=== PATIENT | female | born 1995 | race African-American/Black ===

== ENCOUNTER 2018-08-30 21:00 | Emergency (ER) | payer OTHER ==
[2018-08-30 21:05] VITALS: BP 125/77; PULSE 95; TEMP 99; BMI 44.3
--- NOTE | 2018-08-30 21:27 | PDOC ---
History of Present Illness - General Chief Complaint: Abscess Boil Stated Complaint: ABPSES Time Seen by Provider: 08/30/18 21:17 - History of Present Illness Initial Comments: 08/30/18 21:25 23-year-old 20 week female with a past medical history of hidradenitis presents for a full mass on her left inner thigh which is been there for about 7 days. No systemic symptoms. Past History - Past Medical History Allergies/Adverse Reactions: Allergies Allergy/AdvReac Type Severity Reaction Status Date / Time No Known Allergies Allergy Verified 08/30/18 21:04 Home Medications: Ambulatory Orders Cephalexin [Keflex] 500 mg PO QID #40 capsule 08/30/18 Docosahexanoic Acid [ Dha] 200 mg PO DAILY 08/30/18 COPD: No Other medical history: HINDRINITIS - Suicide/Smoking/Psychosocial Hx Smoking History: Never smoked Review of Systems - Review of Systems Constitutional: No: Fever Integumentary: Yes: Lesions *Physical Exam - Vital Signs Last Vital Signs Temp Pulse Resp BP Pulse Ox 99.0 F 95 H 18 125/77 99 08/30/18 21:02 08/30/18 21:02 08/30/18 21:02 08/30/18 21:02 08/30/18 21:02 - Physical Exam Comments: 08/30/18 21:26 There is a fluctuant tender mildly erythematous and indurated surrounding area on the superior aspect of the left upper inner thigh. *DC/Admit/Observation/Transfer Diagnosis at time of Disposition: Abscess - Discharge Dispostion Disposition: HOME Condition at time of disposition: Stable Decision to Admit order: No - Prescriptions Prescriptions: Cephalexin [Keflex] 500 mg PO QID #40 capsule - Referrals Referrals: Blayne Swift MD [Staff Physician] - - Patient Instructions Printed Discharge Instructions: DI for Incision and Drainage of a Skin Abscess Additional Instructions: Please take Tylenol for pain. Please take the antibiotics as directed. Return to the emergency room for worsening symptoms. The packing should be removed in 48 hours. He may follow-up with general surgery in 1-2 days or return to the emergency room in 48 hours for packing removal and wound check. Return to the emergency room sooner should problems develop. - Post Discharge Activity
== END 2018-08-30 22:22 | disposition home or self-care (01) ==
LOC: JERFT 21:00
PROC: 0J9M0ZZ Drainage of Left Upper Leg Subcutaneous Tissue and Fascia, Open Approach (ICD-10-PCS; principal; 2018-08-30)
DX: L02.416 Cutaneous abscess of left lower limb (principal)
CPT/HCPCS: 87070; 87186; 87205; 99281-25

== ENCOUNTER 2018-11-26 22:17 | Emergency (ER) | payer OTHER ==
[2018-11-26 22:34] VITALS: BMI 34.4
--- NOTE | 2018-11-26 23:04 | PDOC ---
History of Present Illness - General Chief Complaint: Rash Stated Complaint: RASH History Source: Patient Exam Limitations: No Limitations - History of Present Illness Initial Comments: 11/26/18 22:59 Patient is a 23 year old female with h/o hydranitis, c/o rash to the right axilla x 1 week. States she had been putting hydrocortisone cream on it but today started itching. She thought it was worsening and so came for evaluation. Patient is 32 weeks . PMHX: as above PSOCHX: neg cig, neg drug, neg etoh ALL: NKDA GENERAL/CONSTITUTIONAL: No fever or chills. No weakness. No weight change. SKIN AND BREASTS: (+) rash (-) easy bruising. NEUROLOGIC: No headache, vertigo, loss of consciousness, or loss of sensation. PSYCHIATRIC: No depression or anxiety. ENDOCRINE: No increased thirst. No abnormal weight change. HEMATOLOGIC/LYMPHATIC: No anemia, easy bleeding, or history of blood clots. ALLERGIC/IMMUNOLOGIC: No hives or skin allergy. No latex allergy. GENERAL: The patient is awake, alert, and fully oriented, in no acute distress. HEAD: Normal with no signs of trauma. LUNGS: Breath sounds equal, clear to auscultation bilaterally. No wheezes, and no crackles. HEART: Regular rate and rhythm, normal S1 and S2 without murmur, rub. ABDOMEN: Gravid, nontender, normoactive bowel sounds. No guarding, no rebound. No masses. EXTREMITIES: Normal range of motion, no edema. No clubbing or cyanosis. No cords, erythema, or tenderness. NEUROLOGICAL: Cranial nerves II through XII grossly intact. Normal speech, normal gait. PSYCH: Normal mood, normal affect. SKIN: Warm, Dry scaly rash to right axilla with irregular borders, healed surgical scars bilateral axilla. Normal turgor, Past History - Past Medical History Allergies/Adverse Reactions: Allergies Allergy/AdvReac Type Severity Reaction Status Date / Time No Known Allergies Allergy Verified 08/30/18 21:04 Home Medications: Ambulatory Orders Cephalexin [Keflex] 500 mg PO QID #40 capsule 08/30/18 Docosahexanoic Acid [ Dha] 200 mg PO DAILY 08/30/18 Clotrimazole/Betamethasone Dip [Clotrimazole-Betamethasone Crm] 45 gm TP BID #1 cream..g. 07/21/19 COPD: No - Suicide/Smoking/Psychosocial Hx Smoking History: Never smoked Hx Alcohol Use: No Drug/Substance Use Hx: No *Physical Exam - Vital Signs Last Vital Signs Temp Pulse Resp BP Pulse Ox 98.1 F 100 H 20 133/68 99 11/26/18 22:31 11/26/18 22:31 11/26/18 22:31 11/26/18 22:31 11/26/18 22:31 Medical Decision Making - Medical Decision Making 11/26/18 22:59 Patient is a 23 year old female with h/o hydranitis, c/o rash to the right axilla x 1 week. States she had been putting hydrocortisone cream on it but today started itching. She thought it was worsening and so came for evaluation. Patient is 32 weeks . Fungal rash clotrimazole cream 11/26/18 23:33 Selected Entries 11/26/18 23:17 Temperature 97.7 F Pulse Rate [ 82 Right Apical] Respiratory 16 Rate Blood Pressure 124/78 [Right Arm] O2 Sat by Pulse 98 Oximetry (%) I discussed the physical exam findings, ancillary test results and final diagnoses with the patient. I answered all of the patient's questions. The patient was satisfied with the care received and felt comfortable with the discharge plan and treatment plan. The Patient agrees to follow up with the primary care physician within 24-72 hours. *DC/Admit/Observation/Transfer Diagnosis at time of Disposition: Rash - Discharge Dispostion Disposition: HOME Condition at time of disposition: Stable - Prescriptions Prescriptions: Clotrimazole/Betamethasone Dip [Clotrimazole-Betamethasone Crm] 45 gm TP BID #1 cream..g. - Referrals Referrals: Jing Bo MD [Staff Physician] - - Patient Instructions Printed Discharge Instructions: DI for Rash Additional Instructions: Your Discharge Instructions: You must call primary care physician within 24 hours to arrange follow-up. Return to the Emergency Department with any new, persistent or worsening symptoms, for fever, chills, SOB, dizziness or any other concerning changes that may occur. Follow up with PMD for referral to dermatolgy if not resolving after 2 weeks of cream applications. - Post Discharge Activity
[2018-11-26 23:21] VITALS: BP 124/78; PULSE 82; TEMP 97.7
== END 2018-11-26 23:21 | disposition home or self-care (01) ==
LOC: JER 22:17
DX: R21 Rash and other nonspecific skin eruption (principal); O26.893 Other specified pregnancy related conditions, third trimester; Z3A.32 32 weeks gestation of pregnancy
CPT/HCPCS: 99281-25

== ENCOUNTER 2019-04-16 22:04 | Emergency (ER) | payer OTHER ==
[2019-04-16 22:33] VITALS: BP 134/77; PULSE 88; TEMP 97.9; BMI 39.1
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
[2019-04-16] MEDS ORDERED: ACETAMINOPHEN 325 MG TABLET (FP) PO ONE (23:34)
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
[2019-04-17] MEDS ORDERED: ACETAMINOPHEN 325 MG TABLET (FP) ONE (00:29)
== END 2019-04-17 03:37 | disposition home or self-care (01) ==
LOC: JER 22:04
DX: M25.551 Pain in right hip (principal); V48.4XXA Person boarding or alighting a car injured in noncollision transport accident, initial encounter; Y93.89 Activity, other specified; Y92.410 Unspecified street and highway as the place of occurrence of the external cause
CPT/HCPCS: 73523-TC-FY; 73610-TC-RT-FY; 84703; 99282-25

== ENCOUNTER 2019-06-23 18:39 | Inpatient (IN) | payer OTHER ==
[2019-06-23] MEDS ORDERED: ONDANSETRON 4 MG/2 ML VIAL IVPUSH ONE (19:34)
[2019-06-23] MEDS ORDERED: ACETAMINOPHEN 1000 MG/100 ML VIAL (NON FORMULARY) IVPB ONE (19:34)
[2019-06-23] MEDS ORDERED: LACTATED RINGERS SOLUTION 1000 ML INFUS.BAG IV ONE (19:35)
[2019-06-23] MEDS ORDERED: MAG HYDROX/AL HYDROX/SIMETH 30 ML UNIT-DOSE CUP PO ONE (19:42)
[2019-06-23] MEDS ORDERED: FAMOTIDINE 20 MG/50 ML IVPB 20 MG/50 ML MG IVPB ONE ×2 (19:42→21:06)
--- NOTE | 2019-06-23 19:42 | PDOC ---
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 Notes that she has had abdominal pain once a month since implantation of the Nexplanon, without a specific time association with her period, associated with N/V. Today, she has identical periumbilical pain, but with worsened "12/10" pain today. 6 episodes of nbnb vomiting, ongoing nausea. Denies CP, fevers/chills, [place], constipation/diarrhea, urinary symptoms, vaginal bleeding. States that she is in so much pain that she feels SOB. Notes that she had a "goblet" of alcohol yesterday. Also was drinking every day , sharing a bottle of Henessy between 3 people, from [id number]. Has only drank socially since then. Occasionally smokes marijuana. LMP 06/18/2019. Past History - Past Medical History Allergies/Adverse Reactions: Allergies Allergy/AdvReac Type Severity Reaction Status Date / Time No Known Allergies Allergy Verified 06/23/19 19:13 Home Medications: Ambulatory Orders Vitamins (Sjr) - 1 tab PO DAILY 12/05/18 Ferrous Sulfate [Feosol] 325 mg PO DAILY 01/15/19 COPD: No - Psycho Social/Smoking Cessation Hx Smoking History: Current every day smoker Number of Cigarettes Smoked Daily: 20 Information on smoking cessation initiated: Yes Hx Alcohol Use: Yes Drug/Substance Use Hx: No Review of Systems - Review of Systems Comments:: 06/23/19 20:31 GENERAL/CONSTITUTIONAL: denies fever, chills, diaphoresis, generalized weakness , malaise, loss of appetite, weight change HEAD, EYES, EARS, NOSE AND THROAT: denies rhinorrhea, nasal congestion, throat pain, throat swelling, difficulty swallowing, mouth swelling, ear pain, eye pain , visual changes NEUROLOGIC: denies headache, focal weakness or paresthesias, dizziness, unsteady gait, seizure, mental status changes, bladder or bowel incontinence CARDIOVASCULAR: denies chest pain, syncope, palpitations, irregular heart rate, lightheadedness, peripheral edema RESPIRATORY: endorses SOB 2/2 pain. Denies cough, dyspnea with exertion, orthopnea, wheezing, stridor, hemoptysis GASTROINTESTINAL: endorses severe epigastric and periumbilical abdominal pain, nausea, and vomiting. Denies diarrhea, constipation, melena, hematochezia GENITOURINARY: denies dysuria, frequency, urgency, hesitancy, hematuria, flank pain, genital pain MUSCULOSKELETAL: denies myalgia, arthralgia, joint swelling, back pain, neck pain SKIN: denies rash, itching, pallor HEMATOLOGIC/IMMUNOLOGIC: denies easy bleeding, easy bruising, lymphadenopathy, frequent infections ENDOCRINE: denies unexplained weight gain, unexplained weight loss, heat intolerance, cold intolerance PSYCHIATRIC: denies anxiety, depression, suicidal or homicidal ideation, hallucinations. *Physical Exam - Vital Signs Last Vital Signs Temp Pulse Resp BP Pulse Ox 97.4 F L 73 16 136/90 100 06/23/19 19:00 06/23/19 19:00 06/23/19 19:00 06/23/19 19:00 06/23/19 19:00 - Physical Exam 06/23/19 20:34 GENERAL: Awake, alert, and fully oriented, appears uncomfortable. HEAD: Normal with no signs of trauma. EYES: Pupils equal, round and reactive to light, extraocular movements intact, sclera anicteric, conjunctiva clear. No lid lag EARS, NOSE, THROAT: Ears normal, nares patent, oropharynx clear without exudates. Dry mucous membranes NECK: Normal range of motion, supple without lymphadenopathy, JVD, or masses LUNGS: Breath sounds equal, clear to auscultation bilaterally. No wheezes, and no crackles. No accessory muscle use HEART: Regular rate and rhythm, normal S1 and S2 without murmur, rub or gallop ABDOMEN: Soft, obese, tenderness to epigastrium and periumbilical regions, non- distended, normoactive bowel sounds, negative guarding, negative rebound MUSCULOSKELETAL: Normal range of motion at all joints. No bony deformities or tenderness. No CVA tenderness UPPER EXTREMITIES: 2+ pulses, warm, well-perfused. No cyanosis. No clubbing. Cap refill <2 seconds. No peripheral edema LOWER EXTREMITIES: 2+ pulses, warm, well-perfused. No calf tenderness. No peripheral edema NEUROLOGICAL: Cranial nerves II-XII intact. Normal speech. PSYCHIATRIC: Cooperative. Good eye contact. Appropriate mood and affect. SKIN: Warm, dry, normal turgor, no rashes or lesions noted. ED Treatment Course - LABORATORY CBC & Chemistry Diagram: 06/23/19 19:59 06/23/19 19:59 Medical Decision Making - Medical Decision Making 06/23/19 20:38 Concern for gastritis v pancreatitis. - CBC, CMP, lipase - UA/UC/urine - Fabrice Dominique, IVF 06/24/19 21:55 WBC 18.3, lipase >29729. Will admit for pancreatitis. 06/25/19 01:15 RUQ US consistent with acute cholecystitis in addition to pancreatitis. Discharge - Discharge Information Problems reviewed: Yes Clinical Impression/Diagnosis: Pancreatitis - Follow up/Referral - Patient Discharge Instructions - Post Discharge Activity
--- NOTE | 2019-06-23 19:47 | PDOC ---
Attending Attestation - Resident Resident Name: Panda Seaman - ED Attending Attestation I have performed the following: I have examined & evaluated the patient, The case was reviewed & discussed with the resident, I agree w/resident's findings & plan - HPI HPI: 06/23/19 21:55 Pt states that she has been having abd pain and vomiting since 3am feeling unwell. 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 SHe has grandma who had GB stones. She has no other PMHx. Pt is afebrile - Physicial Exam PE: 06/23/19 22:00 Pt has no fever Epig and RUQ pain. pt is morbidly obese; abd exam is difficult Heart RRR Lung Cta b no flank pain No peripheral edema no jaundice neuro intact - Medical Decision Making 06/23/19 22:01 Pt will get iv zosyn and hydration and she will be admitted to medicine She will get CT A/P she has a norplant in for contraception and her LMP was on 06/10/19 SHe will be sent for the CT scan [facility] patient 06/24/19 01:11 Patient Name: ROHINI ARCHULETA THIS IS A PRELIMINARY REPORT FROM [facility] DATE OF SERVICE: 2019-06-23 23:13:54 IMAGES: 54 EXAM: ABDOMEN US -LIMITED HISTORY: Elevated liver function tests. COMPARISON: None. Preliminary findings/impression: 1. Cholelithiasis with positive sonographic Santiago's sign, consistent with acute cholecystitis. A short-term follow-up ultrasound is recommended for continued evaluation. 2. Ectatic proximal abdominal aorta.
[2019-06-23] MEDS ORDERED: ACETAMINOPHEN INJECTION 100 ML IVPB ONE (19:49)
[2019-06-23] MEDS ORDERED: ONDANSETRON 4 MG/2 ML VIAL ONE (19:49)
[2019-06-23 20:13] LABS: BASO % 0.2 % (0-2.0); EOS % 0.2 % (0-4.5); HEMATOCRIT 39.8 % (32.4-45.2); HEMOGLOBIN 12.8 GM/dL (10.7-15.3); LYMPH % 6.4 % (8-40); MCH 23.8 pg (25.7-33.7); MCHC 32.2 g/dl (32.0-36.0); MEAN CELL VOLUME 73.9 fl (80-96); MEAN PLT VOLUME 7.7 fl (7.5-11.1); MONO % 3.3 % (3.8-10.2); NEUT % 89.9 % (42.8-82.8); PLATELET COUNT 324 K/MM3 (134-434); RBC 5.38 M/mm3 (3.60-5.2); RDW 15.9 % (11.6-15.6); WHITE BLOOD COUNT 18.3 K/mm3 (4.0-10.0)
[2019-06-23 20:51] LABS: ALBUMIN 3.4 g/dl (3.4-5.0); ALK PHOS 160 U/L (45-117); ANION GAP 7 MMOL/L (8-16); BILIRUBIN,TOTAL 2.9 mg/dL (0.2-1); BLOOD UREA NITROGEN 10.9 mg/dL (7-18); CALCIUM 8.8 mg/dL (8.5-10.1); CHLORIDE 106 mmol/L (98-107); CO2 26 mmol/L (21-32); CREATININE 0.7 mg/dL (0.55-1.3); GLUCOSE,RANDOM 167 mg/dL (74-106); POTASSIUM 4.3 mmol/L (3.5-5.1); SGOT/AST 566 U/L (15-37); SGPT/ALT 456 U/L (13-61); SODIUM 138 mmol/L (136-145); TOT PROT 7.1 g/dl (6.4-8.2)
[2019-06-23] MEDS ORDERED: MAG HYDROX/AL HYDROX/SIMETH 30 ML UNIT-DOSE CUP ONE (21:06)
[2019-06-23] MEDS ORDERED: PIPERACILLIN/TAZOB 3.375 GM 3.375 GM in DEXTROSE 5%-WATER - 50 ML IVPB ONE (21:34)
[2019-06-23] MEDS ORDERED: LACTATED RINGERS SOLUTION 1,000 ML IV SCH (22:15)
--- NOTE | 2019-06-23 22:19 | HP ---
<AleksandrcoltpanchoDeangeloCandi - Last Filed: 06/24/19 00:48> CHIEF COMPLAINT: abdominal pain PCP: HISTORY OF PRESENT ILLNESS: Patient is a 23 year old female with past medical history of hidradenitis suppurativa s/p bilateral axillary resection of sweat glands, presented to the ED due to worsening abdominal pain that started this morning. Patient reported she experienced sudden onset, severe, periumbilical pain that woke her up from her sleep this morning. Pain resolved and patient was able to get back to sleep. During the day, patient started to experience worsening of the abdominal pain. She described it as constant, 10/10 sharp pain in the periumbilical area, worsened by food and not relieved by NSAIDs. She also reported nausea and NBNB vomiting. She had lao food last night, but other family members have no symptoms. Of note, patient had been a heavy drinker 2 years ago, where she would consume 1/3 gallon liquor for about a year. Last night, she had a couple glasses of liquor. Patient denies any fevers, chills, headache, dizziness, chest pain, SOB, diarrhea, urinary symptoms. ER course was notable for: (1)WBC 18.3, Lipase 08107 (2)AST/ALT/ALP 566/456/160 (3)CTAP Recent Travel:denies PAST MEDICAL HISTORY: hidradenitis suppurativa PAST SURGICAL HISTORY: bilateral axillary resection of sweat glands Nexplanon implant (01/2019) Social History: Smoking: Alcohol:used to drink 1/3 gallon liquor daily for a year, quit 2 years ago Drugs: , LMP 06/18/2019 Family History Mother - DM, Heart disease Allergies No Known Allergies Allergy (Verified 06/23/19 19:13) HOME MEDICATIONS: Home Medications Medication Instructions Recorded Vitamins (Sjr) - 1 tab PO DAILY 12/05/18 Ferrous Sulfate [Feosol] 325 mg PO DAILY 01/15/19 REVIEW OF SYSTEMS CONSTITUTIONAL: Absent: fever, chills, diaphoresis, generalized weakness, malaise, loss of appetite, weight change HEENT: Absent: rhinorrhea, nasal congestion, throat pain, throat swelling, difficulty swallowing, mouth swelling, ear pain, eye pain, visual changes CARDIOVASCULAR: Absent: chest pain, syncope, palpitations, irregular heart rate, lightheadedness , peripheral edema RESPIRATORY: Absent: cough, shortness of breath, dyspnea with exertion, orthopnea, wheezing, stridor, hemoptysis GASTROINTESTINAL:abdominal pain, nausea, vomiting Absent: abdominal distension, diarrhea, constipation, melena, hematochezia GENITOURINARY: Absent: dysuria, frequency, urgency, hesitancy, hematuria, flank pain, genital pain MUSCULOSKELETAL: Absent: myalgia, arthralgia, joint swelling, back pain, neck pain SKIN: Absent: rash, itching, pallor HEMATOLOGIC/IMMUNOLOGIC: Absent: easy bleeding, easy bruising, lymphadenopathy, frequent infections ENDOCRINE: Absent: unexplained weight gain, unexplained weight loss, heat intolerance, cold intolerance NEUROLOGIC: Absent: headache, focal weakness or paresthesias, dizziness, unsteady gait, seizure, mental status changes, bladder or bowel incontinence PSYCHIATRIC: Absent: anxiety, depression, suicidal or homicidal ideation, hallucinations. PHYSICAL EXAMINATION Vital Signs - 24 hr 06/23/19 19:00 Temperature 97.4 F L Pulse Rate 73 Respiratory 16 Rate Blood Pressure 136/90 O2 Sat by Pulse 100 Oximetry (%) GENERAL: Awake, alert, and fully oriented, in no acute distress. HEAD: Normal with no signs of trauma. EYES: Pupils equal, round and reactive to light, extraocular movements intact, sclera anicteric, conjunctiva clear. No lid lag. EARS, NOSE, THROAT: Ears normal, nares patent, oropharynx clear without exudates. Moist mucous membranes. NECK: Normal range of motion, supple without lymphadenopathy, JVD, or masses. LUNGS: Breath sounds equal, clear to auscultation bilaterally. No wheezes, and no crackles. No accessory muscle use. HEART: Regular rate and rhythm, normal S1 and S2 without murmur, rub or gallop. ABDOMEN: Soft, nontender, not distended, normoactive bowel sounds, no guarding, no rebound, no masses. No hepatomegaly or splenomegaly. MUSCULOSKELETAL: Normal range of motion at all joints. No bony deformities or tenderness. No CVA tenderness. UPPER EXTREMITIES: 2+ pulses, warm, well-perfused. No cyanosis. No clubbing. No peripheral edema. LOWER EXTREMITIES: 2+ pulses, warm, well-perfused. No calf tenderness. No peripheral edema. NEUROLOGICAL: Cranial nerves II-XII intact. Normal speech. Normal gait. PSYCHIATRIC: Cooperative. Good eye contact. Appropriate mood and affect. SKIN: Warm, dry, normal turgor, no rashes or lesions noted, normal capillary refill. Laboratory Results - last 24 hr 06/23/19 06/23/19 06/23/19 19:59 19:59 19:59 WBC 18.3 H RBC 5.38 H Hgb 12.8 Hct 39.8 MCV 73.9 L MCH 23.8 L MCHC 32.2 RDW 15.9 H Plt Count 324 MPV 7.7 Absolute Neuts (auto) 16.5 H Neutrophils % 89.9 H Lymphocytes % 6.4 L Monocytes % 3.3 L Eosinophils % 0.2 Basophils % 0.2 Nucleated RBC % 0 Sodium 138 Potassium 4.3 Chloride 106 Carbon Dioxide 26 Anion Gap 7 L BUN 10.9 Creatinine 0.7 Est GFR (CKD-EPI)AfAm 139.57 Est GFR (CKD-EPI)NonAf 120.42 Random Glucose 167 H Calcium 8.8 Total Bilirubin 2.9 H AST 566 H ALT 456 H Alkaline Phosphatase 160 H Total Protein 7.1 Albumin 3.4 Lipase 84590 H ASSESSMENT/PLAN: Patient is a 23 year old female with past medical history of hidradenitis suppurativa s/p bilateral axillary resection of sweat glands, presented to the ED due to worsening abdominal pain that started this morning. #Acute pancreatitis -may be 2/2 etoh use vs gallstones vs ?Nexplanon -CTAP -IV fluids -Pain control with morphine and Toradol, will avoid Tylenol for now given elevated LFTs -NPO -RUQ ultrasound -lipid panel -Gastroenterology consulted. -Surgery consulted. #Elevated LFTs, elevated t.bili -Possibly 2/2 gallstone vs ?etoh use -RUQ ultrasound -will continue to monitor LFTs #FEN -IV LR @200cc/hr -electrolytes wnl, routine bmp monitoring -NPO #Prophylaxis -Lovenox 40mg sq daily #Disposition -full code -admit to med surg ATTENDING PHYSICIAN STATEMENT I saw and evaluated the patient. I reviewed the resident's note and discussed the case with the resident. I agree with the resident's findings and plan as documented. SUBJECTIVE: OBJECTIVE: ASSESSMENT AND PLAN: <Willie Wesley - Last Filed: 06/24/19 01:08> CHIEF COMPLAINT: PCP: HISTORY OF PRESENT ILLNESS: ER course was notable for: (1) (2) (3) Recent Travel: PAST MEDICAL HISTORY: PAST SURGICAL HISTORY: Social History: Smoking: Alcohol: Drugs: Allergies No Known Allergies Allergy (Verified 06/23/19 19:13) HOME MEDICATIONS: Home Medications Medication Instructions Recorded Vitamins (Sjr) - 1 tab PO DAILY 12/05/18 Ferrous Sulfate [Feosol] 325 mg PO DAILY 01/15/19 REVIEW OF SYSTEMS CONSTITUTIONAL: Absent: fever, chills, diaphoresis, generalized weakness, malaise, loss of appetite, weight change HEENT: Absent: rhinorrhea, nasal congestion, throat pain, throat swelling, difficulty swallowing, mouth swelling, ear pain, eye pain, visual changes CARDIOVASCULAR: Absent: chest pain, syncope, palpitations, irregular heart rate, lightheadedness , peripheral edema RESPIRATORY: Absent: cough, shortness of breath, dyspnea with exertion, orthopnea, wheezing, stridor, hemoptysis GASTROINTESTINAL: Absent: abdominal pain, abdominal distension, nausea, vomiting, diarrhea, constipation, melena, hematochezia GENITOURINARY: Absent: dysuria, frequency, urgency, hesitancy, hematuria, flank pain, genital pain MUSCULOSKELETAL: Absent: myalgia, arthralgia, joint swelling, back pain, neck pain SKIN: Absent: rash, itching, pallor HEMATOLOGIC/IMMUNOLOGIC: Absent: easy bleeding, easy bruising, lymphadenopathy, frequent infections ENDOCRINE: Absent: unexplained weight gain, unexplained weight loss, heat intolerance, cold intolerance NEUROLOGIC: Absent: headache, focal weakness or paresthesias, dizziness, unsteady gait, seizure, mental status changes, bladder or bowel incontinence PSYCHIATRIC: Absent: anxiety, depression, suicidal or homicidal ideation, hallucinations. PHYSICAL EXAMINATION Vital Signs - 24 hr 06/23/19 19:00 Temperature 97.4 F L Pulse Rate 73 Respiratory 16 Rate Blood Pressure 136/90 O2 Sat by Pulse 100 Oximetry (%) GENERAL: Awake, alert, and fully oriented, in no acute distress. HEAD: Normal with no signs of trauma. EYES: Pupils equal, round and reactive to light, extraocular movements intact, sclera anicteric, conjunctiva clear. No lid lag. EARS, NOSE, THROAT: Ears normal, nares patent, oropharynx clear without exudates. Moist mucous membranes. NECK: Normal range of motion, supple without lymphadenopathy, JVD, or masses. LUNGS: Breath sounds equal, clear to auscultation bilaterally. No wheezes, and no crackles. No accessory muscle use. HEART: Regular rate and rhythm, normal S1 and S2 without murmur, rub or gallop. ABDOMEN: Soft, nontender, not distended, normoactive bowel sounds, no guarding, no rebound, no masses. No hepatomegaly or splenomegaly. MUSCULOSKELETAL: Normal range of motion at all joints. No bony deformities or tenderness. No CVA tenderness. UPPER EXTREMITIES: 2+ pulses, warm, well-perfused. No cyanosis. No clubbing. No peripheral edema. LOWER EXTREMITIES: 2+ pulses, warm, well-perfused. No calf tenderness. No peripheral edema. NEUROLOGICAL: Cranial nerves II-XII intact. Normal speech. Normal gait. PSYCHIATRIC: Cooperative. Good eye contact. Appropriate mood and affect. SKIN: Warm, dry, normal turgor, no rashes or lesions noted, normal capillary refill. Laboratory Results - last 24 hr 06/23/19 06/23/19 06/23/19 19:59 19:59 19:59 WBC 18.3 H RBC 5.38 H Hgb 12.8 Hct 39.8 MCV 73.9 L MCH 23.8 L MCHC 32.2 RDW 15.9 H Plt Count 324 MPV 7.7 Absolute Neuts (auto) 16.5 H Neutrophils % 89.9 H Lymphocytes % 6.4 L Monocytes % 3.3 L Eosinophils % 0.2 Basophils % 0.2 Nucleated RBC % 0 Sodium 138 Potassium 4.3 Chloride 106 Carbon Dioxide 26 Anion Gap 7 L BUN 10.9 Creatinine 0.7 Est GFR (CKD-EPI)AfAm 139.57 Est GFR (CKD-EPI)NonAf 120.42 Random Glucose 167 H Calcium 8.8 Total Bilirubin 2.9 H AST 566 H ALT 456 H Alkaline Phosphatase 160 H Total Protein 7.1 Albumin 3.4 Total Amylase > 1300 H Lipase 87032 H Beta HCG, Quant < 1.0 Urine Color Urine Appearance Urine pH Ur Specific [place] Urine Protein Urine Glucose (UA) Urine Ketones Urine Blood Urine Nitrite Urine Bilirubin Urine Urobilinogen Ur Leukocyte Esterase Urine HCG, Qual 06/23/19 06/23/19 22:58 22:58 WBC RBC Hgb Hct MCV MCH MCHC RDW Plt Count MPV Absolute Neuts (auto) Neutrophils % Lymphocytes % Monocytes % Eosinophils % Basophils % Nucleated RBC % Sodium Potassium Chloride Carbon Dioxide Anion Gap BUN Creatinine Est GFR (CKD-EPI)AfAm Est GFR (CKD-EPI)NonAf Random Glucose Calcium Total Bilirubin AST ALT Alkaline Phosphatase Total Protein Albumin Total Amylase Lipase Beta HCG, Quant Urine Color Dk yellow Urine Appearance Clear Urine pH 7.0 Ur Specific [place] 1.020 Urine Protein Trace Urine Glucose (UA) Negative Urine Ketones Negative Urine Blood Negative Urine Nitrite Negative Urine Bilirubin 1+ H Urine Urobilinogen 1.0 Ur Leukocyte Esterase Negative Urine HCG, Qual Negative ASSESSMENT/PLAN: Visit type - Emergency Visit Emergency Visit: Yes ED Registration Date: 06/23/19 Care time: The patient presented to the Emergency Department on the above date and was hospitalized for further evaluation of their emergent condition. - New Patient This patient is new to me today: Yes Date on this admission: 06/24/19 - Critical Care Critical Care patient: No ATTENDING PHYSICIAN STATEMENT I saw and evaluated the patient. I reviewed the resident's note and discussed the case with the resident. I agree with the resident's findings and plan as documented. SUBJECTIVE: 23 year old obese female with past medical history of hidradenitis suppurativa s/p bilateral axillary resection of sweat glands, presented to the ED due to worsening abdominal pain that started this morning. Abdominal pain was associated with nausea and vomiting. Pain was progressively gotten worse so she decided to come to ED After coming to ED she was found to have elevated lipase and Elevated LFts OBJECTIVE: Last Vital Signs Temp Pulse Resp BP Pulse Ox 97.4 F L 73 16 136/90 100 06/23/19 19:00 06/23/19 19:00 06/23/19 19:00 06/23/19 19:00 06/23/19 19:00 General :Obese, not in acute distress Head - NC/ AT Eyes : ANGELICA, EOMI, No cunjuctival pallor neck : supple, Thyroid wnl, no lymphadenopathy Resp : B/l clear CVS : RRR, s1s2+ no MRG Abd : tenderness on epigastric region and RUQ, mojica sign + , Not distended, no guarding, +BS, no organomegalu Neuro : A&o x3No focal neurologic deficit Ext : no edema, peripheral pulses palpable labs, imaging studies reviewed. ASSESSMENT AND PLAN: Acute gallstone pancreatitis Acute Cholecystitis Admit to floor NPO IV hydration Pain management IV antibiotics Zosyn Surgery consult GI consult Lipid panel RUQ US DVT ppx trend LFTs Discussed with resident staff in details Willie Shah MD
[2019-06-23] MEDS ORDERED: PIPERACILLIN/TAZOB 3.375 GM 3.375 GM/50 ML BAG IVPB ONE (22:25)
[2019-06-23 22:40] LABS: AMYLASE > 1300 U/L (25-115)
[2019-06-23 23:18] LABS: URINE APPEARANCE CLEAR; URINE BILIRUBIN 1+ (NEGATIVE); URINE COLOR DK YELLOW; URINE GLUCOSE (UA) NEGATIVE (NEGATIVE); URINE KETONE NEGATIVE (NEGATIVE); URINE LEUK ESTERASE NEGATIVE (NEGATIVE); URINE NITRITE NEGATIVE (NEGATIVE); URINE PROTEIN TRACE (NEGATIVE)
[2019-06-24] MEDS ORDERED: morphine CARPU-JECT 2 MG/1 ML DISP.SYRIN IVPUSH PRN (00:26)
[2019-06-24] MEDS ORDERED: MORPHINE SULFATE 2 MG/ML VIAL ONE ×3 (01:14→07:55)
[2019-06-24] MEDS ORDERED: ACETAMINOPHEN 1000 MG/100 ML VIAL (NON FORMULARY) IVPB ONE (02:37)
[2019-06-24] MEDS ORDERED: ACETAMINOPHEN INJECTION 100 ML IVPB ONE ×2 (03:22→13:34)
[2019-06-24] MEDS ORDERED: PIPERACILLIN/TAZOB 3.375 GM 3.375 GM/50 ML BAG IVPB ONE ×3 (03:22→10:24)
[2019-06-24] MEDS ORDERED: MORPHINE SULFATE 2 MG/ML VIAL IVPUSH PRN (03:25)
[2019-06-24] MEDS ORDERED: MORPHINE SULFATE 2 MG/ML VIAL IVPUSH ONE (03:26)
[2019-06-24] MEDS: PIPERACILLIN/TAZOB 3.375 GM 3.375 GM in DEXTROSE 5%-WATER - 50 ML IVPB SCH ×4 (04:02→18:32)
[2019-06-24 08:23] LABS: BASO % 0.1 % (0-2.0); HEMATOCRIT 37.7 % (32.4-45.2); HEMOGLOBIN 12.2 GM/dL (10.7-15.3); LYMPH % 4.2 % (8-40); MCH 23.7 pg (25.7-33.7); MCHC 32.4 g/dl (32.0-36.0); MEAN CELL VOLUME 73.3 fl (80-96); MEAN PLT VOLUME 7.8 fl (7.5-11.1); MONO % 1.8 % (3.8-10.2); NEUT % 93.9 % (42.8-82.8); PLATELET COUNT 335 K/MM3 (134-434); RBC 5.14 M/mm3 (3.60-5.2); RDW 16.1 % (11.6-15.6); WHITE BLOOD COUNT 14.7 K/mm3 (4.0-10.0)
[2019-06-24 08:46] LABS: CHOLESTEROL 122 mg/dL (50-200); HDL CHOLESTEROL 52 mg/dL (40-60); LDL CHOLESTEROL (ONLY SJRH) 62 mg/dL (5-100); TRIGLYCERIDES 42 mg/dL (0-150)
[2019-06-24 08:50] LABS: ALBUMIN 3.2 g/dl (3.4-5.0); BILIRUBIN,TOTAL 3.6 mg/dL (0.2-1); BLOOD UREA NITROGEN 9.9 mg/dL (7-18); CALCIUM 8.5 mg/dL (8.5-10.1); CREATININE 0.7 mg/dL (0.55-1.3); MAGNESIUM 2.1 mg/dL (1.8-2.4); POTASSIUM 3.9 mmol/L (3.5-5.1); TOT PROT 6.9 g/dl (6.4-8.2)
[2019-06-24] MEDS: ENOXAPARIN NA (PORCINE) 40 MG/0.4 ML DISP.SYRIN SQ SCH (10:00)
[2019-06-24] MEDS ORDERED: HYDROmorphone HCl 2 MG/ML VIAL IVPB ONE (10:43)
--- NOTE | 2019-06-24 10:45 | PN ---
Physical Exam: SUBJECTIVE: Patient seen and examined. She complains of severe abdominal pain and nausea. OBJECTIVE: Vital Signs Period Temp Pulse Resp BP Sys/Lewis Pulse Ox Last 24 Hr 97.4 F-98.1 F 56-73 16-20 136-154/74-90 99-100 GENERAL: The patient is awake, alert, and fully oriented, in moderate distress. LUNGS: Breath sounds equal, clear to auscultation bilaterally, no wheezes, no crackles, no accessory muscle use. HEART: Regular rate and rhythm, S1, S2 without murmur, rub or gallop. ABDOMEN: Obese, soft, diffusely tender, nondistended, normoactive bowel sounds, no guarding, no rebound, no hepatosplenomegaly, no masses. EXTREMITIES: 2+ pulses, warm, well-perfused, no edema. Laboratory Results - last 24 hr 06/23/19 06/23/19 06/23/19 19:59 19:59 19:59 WBC 18.3 H RBC 5.38 H Hgb 12.8 Hct 39.8 MCV 73.9 L MCH 23.8 L MCHC 32.2 RDW 15.9 H Plt Count 324 MPV 7.7 Absolute Neuts (auto) 16.5 H Neutrophils % 89.9 H Lymphocytes % 6.4 L Monocytes % 3.3 L Eosinophils % 0.2 Basophils % 0.2 Nucleated RBC % 0 Sodium 138 Potassium 4.3 Chloride 106 Carbon Dioxide 26 Anion Gap 7 L BUN 10.9 Creatinine 0.7 Est GFR (CKD-EPI)AfAm 139.57 Est GFR (CKD-EPI)NonAf 120.42 Random Glucose 167 H Lactic Acid Calcium 8.8 Phosphorus Magnesium Total Bilirubin 2.9 H AST 566 H ALT 456 H Alkaline Phosphatase 160 H Total Protein 7.1 Albumin 3.4 Triglycerides Cholesterol Total LDL Cholesterol HDL Cholesterol Total Amylase > 1300 H Lipase 59595 H Beta HCG, Quant < 1.0 Urine Color Urine Appearance Urine pH Ur Specific [place] Urine Protein Urine Glucose (UA) Urine Ketones Urine Blood Urine Nitrite Urine Bilirubin Urine Urobilinogen Ur Leukocyte Esterase Urine HCG, Qual 06/23/19 06/23/19 06/23/19 22:45 22:58 22:58 WBC RBC Hgb Hct MCV MCH MCHC RDW Plt Count MPV Absolute Neuts (auto) Neutrophils % Lymphocytes % Monocytes % Eosinophils % Basophils % Nucleated RBC % Sodium Potassium Chloride Carbon Dioxide Anion Gap BUN Creatinine Est GFR (CKD-EPI)AfAm Est GFR (CKD-EPI)NonAf Random Glucose Lactic Acid 1.3 Calcium Phosphorus Magnesium Total Bilirubin AST ALT Alkaline Phosphatase Total Protein Albumin Triglycerides Cholesterol Total LDL Cholesterol HDL Cholesterol Total Amylase Lipase Beta HCG, Quant Urine Color Dk yellow Urine Appearance Clear Urine pH 7.0 Ur Specific [place] 1.020 Urine Protein Trace Urine Glucose (UA) Negative Urine Ketones Negative Urine Blood Negative Urine Nitrite Negative Urine Bilirubin 1+ H Urine Urobilinogen 1.0 Ur Leukocyte Esterase Negative Urine HCG, Qual Negative 06/24/19 06/24/19 06/24/19 07:30 07:30 07:30 WBC 14.7 H RBC 5.14 Hgb 12.2 Hct 37.7 MCV 73.3 L MCH 23.7 L MCHC 32.4 RDW 16.1 H Plt Count 335 MPV 7.8 Absolute Neuts (auto) 13.8 H Neutrophils % 93.9 H Lymphocytes % 4.2 L D Monocytes % 1.8 L Eosinophils % 0.0 D Basophils % 0.1 Nucleated RBC % 0 Sodium 138 Potassium 3.9 Chloride 105 Carbon Dioxide 25 Anion Gap 8 BUN 9.9 Creatinine 0.7 Est GFR (CKD-EPI)AfAm 139.57 Est GFR (CKD-EPI)NonAf 120.42 Random Glucose 188 H Lactic Acid Calcium 8.5 Phosphorus 4.0 Magnesium 2.1 Total Bilirubin 3.6 H AST 346 H ALT 478 H Alkaline Phosphatase 192 H Total Protein 6.9 Albumin 3.2 L Triglycerides 42 Cholesterol 122 Total LDL Cholesterol 62 HDL Cholesterol 52 Total Amylase Lipase Beta HCG, Quant Urine Color Urine Appearance Urine pH Ur Specific [place] Urine Protein Urine Glucose (UA) Urine Ketones Urine Blood Urine Nitrite Urine Bilirubin Urine Urobilinogen Ur Leukocyte Esterase Urine HCG, Qual Active Medications Generic Name Dose Route Start Last Admin Trade Name Freq PRN Reason Stop Dose Admin Enoxaparin Sodium 40 mg 06/24/19 10:00 Lovenox - SQ DAILY [facility] Lactated Ringer's 1,000 mls @ 150 mls/hr 06/23/19 22:15 06/24/19 04:40 Lactated Ringers Solution IV 150 mls/hr ASDIR [facility] Administration Piperacillin Sod/Tazobactam 50 mls @ 100 mls/hr 06/24/19 08:00 Sod 3.375 gm/ Dextrose IVPB Q8H-IV [facility] Protocol Piperacillin Sod/Tazobactam 50 mls @ 100 mls/hr 06/24/19 02:00 06/24/19 04:02 Sod 3.375 gm/ Dextrose IVPB 06/24/19 18:29 100 mls/hr Q8H-IV [facility] Administration Protocol Morphine Sulfate 2 mg 06/24/19 03:25 06/24/19 08:05 Morphine Sulfate IVPUSH 2 mg Q4H PRN Administration PAIN LEVEL 7 - 10 ASSESSMENT/PLAN: This is a 23 year old woman with a history of hidradenitis suppurativa, resection of bilateral axillary sweat glands who presented to the ED with abdominal pain. 1. Acute pancreatitis - Likely secondary to gallstones, possible alcohol induced - Preliminary CT report shows severe pancreatitis with secondary duodenal inflammation - Preliminary RUQ US report shows cholelithiasis with positive sonographic Santiago's sign, consistent with acute cholecystitis; ectatic proximal abdominal aorta - Maintain NPO - IV fluid - Change morphine to Dilaudid as needed for pain control - Zofran as needed for nausea - GI, surgery consults 2. Acute cholecystitis - Continue Zosyn - Surgery evaluation 3. Possible choledocholithiasis - MRCP - GI evaluation Visit type - Emergency Visit Emergency Visit: Yes ED Registration Date: 06/23/19 Care time: The patient presented to the Emergency Department on the above date and was hospitalized for further evaluation of their emergent condition. - New Patient This patient is new to me today: Yes Date on this admission: 06/24/19 - Critical Care Critical Care patient: No - Discharge Referral Referred to [facility] Med [facility].: No
[2019-06-24] MEDS ORDERED: HYDROmorphone HCl 2 MG/ML VIAL ONE ×2 (10:53→15:02)
[2019-06-24] MEDS ORDERED: ONDANSETRON 4 MG/2 ML VIAL ONE (10:53)
[2019-06-24] MEDS: ONDANSETRON 4 MG/2 ML VIAL IVPUSH PRN (10:55)
[2019-06-24 12:12] LABS: ANISOCYTOSIS 0; MACROCYTOSIS 0; PLATELET ESTIMATE NORMAL
--- NOTE | 2019-06-24 13:39 | CONSULT ---
- Consultation REQUESTING PROVIDER: Kade ERICKSON CONSULT REQUEST: We have been asked to surgically evaluate this patient for ( specify). PCP:Viktor Braun MD HISTORY OF PRESENT ILLNESS:MICHAEL who is a 23 year old female who presented to the [facility] ED with worsening abdominal pain that started the day of admission. Patient reported she experienced sudden onset, severe, periumbilical pain that woke her up from her sleep this morning. Pain resolved and patient was able to get back to sleep. During the day, patient started to experience worsening of the abdominal pain. She described it as constant, 10/10 sharp pain in the periumbilical area, worsened by food and not relieved by NSAIDs. She also reported nausea and vomiting. She had [place] food the night prior to admission , Patient admits to being a heavy drinker 2 years ago, where she would consume 1/3 gallon liquor for about a year. Last night, she had alcohol again. Patient denies any fevers, chills, headache, dizziness, chest pain, SOB, diarrhea, urinary symptoms or any pther GI/GUGYN c/o's; pain is now localized to her epigatric area w/radiation to her back.. PMHx: HAS PSHx: excision HAS of both axillae Home Medications Medication Instructions Recorded Vitamins (Sjr) - 1 tab PO DAILY 12/05/18 Ferrous Sulfate [Feosol] 325 mg PO DAILY 01/15/19 Allergies Allergy/AdvReac Type Severity Reaction Status Date / Time No Known Allergies Allergy Verified 06/23/19 19:13 REVIEW OF SYSTEMS: CONSTITUTIONAL: Absent: fever, chills, diaphoresis, generalized weakness, malaise, loss of appetite, weight change CARDIOVASCULAR: Absent: chest pain, syncope, palpitations, irregular heart rate, lightheadedness , peripheral edema RESPIRATORY: Absent: cough, shortness of breath, dyspnea with exertion, wheezing, stridor, hemoptysis GASTROINTESTINAL: Present: abdominal pain, abdominal distension, nausea, vomiting, Absent: diarrhea, constipation, melena, hematochezia GENITOURINARY: Absent: dysuria, frequency, urgency, hesitancy, hematuria, flank pain, genital pain MUSCULOSKELETAL: Absent: myalgia, arthralgia, joint swelling, back pain, neck pain SKIN: Present: axillary infections and pain HEMATOLOGIC/IMMUNOLOGIC: Absent: easy bleeding, easy bruising, lymphadenopathy NEUROLOGIC: Absent: headache, focal weakness, paresthesias, dizziness, unsteady gait, seizure, mental status changes, bladder or bowel incontinence PSYCHIATRIC: Absent: anxiety, depression, suicidal or homicidal ideation, hallucinations. PHYSICAL EXAM: GENERAL: Awake, alert, and fully oriented, in no acute distress. HEAD: Normal with no signs of trauma. EYES: PERRL, sclera anicteric, conjunctiva clear. NECK: Normal ROM, supple without lymphadenopathy, JVD, or masses. ABDOMEN: Soft, minimal epigastric tenderness, not distended, normoactive bowel sounds, no guarding, no rebound, no masses. No organomegaly. No hernias MUSCULOSKELETAL: Normal ROM at all joints. No bony deformities or tenderness. No CVA tenderness. UPPER EXTREMITIES: 2+ pulses, warm, well-perfused. No cyanosis. Cap refill <2 seconds. No peripheral edema. LOWER EXTREMITIES: 2+ pulses, warm, well-perfused. No calf tenderness. No peripheral edema. NEUROLOGICAL: Normal speech, gait not observed. PSYCH: Cooperative. Good eye contact. Appropriate mood and affect. SKIN: Warm, dry, normal turgor, no rashes or lesions noted. Vital Signs Temperature 98 F 06/24/19 10:50 Pulse Rate 58 L 06/24/19 10:50 Respiratory Rate 20 06/24/19 10:50 Blood Pressure 140/80 06/24/19 10:50 O2 Sat by Pulse Oximetry (%) 99 06/24/19 08:00 Lab Results WBC 14.7 K/mm3 (4.0-10.0) H 06/24/19 07:30 RBC 5.14 M/mm3 (3.60-5.2) 06/24/19 07:30 Hgb 12.2 GM/dL (10.7-15.3) 06/24/19 07:30 Hct 37.7 % (32.4-45.2) 06/24/19 07:30 MCV 73.3 fl (80-96) L 06/24/19 07:30 MCHC 32.4 g/dl (32.0-36.0) 06/24/19 07:30 RDW 16.1 % (11.6-15.6) H 06/24/19 07:30 Plt Count 335 K/MM3 (134-434) 06/24/19 07:30 Sodium 138 mmol/L (136-145) 06/24/19 07:30 Potassium 3.9 mmol/L (3.5-5.1) 06/24/19 07:30 Chloride 105 mmol/L (98-107) 06/24/19 07:30 Carbon Dioxide 25 mmol/L (21-32) 06/24/19 07:30 Anion Gap 8 MMOL/L (8-16) 06/24/19 07:30 BUN 9.9 mg/dL (7-18) 06/24/19 07:30 Creatinine 0.7 mg/dL (0.55-1.3) 06/24/19 07:30 Random Glucose 188 mg/dL (74-106) H 06/24/19 07:30 Calcium 8.5 mg/dL (8.5-10.1) 06/24/19 07:30 Labs and imaging w/u reviewed. IMP: gallstone and or alcoholic pancreatitis PLAN: NPO/aggressive IV hydration/trend LFT's and lipase/amylase;pain management and will eventually need laparoscopic cholecystectomy; will f/u. Brendon Spicer MD FACS
[2019-06-24] MEDS: ACETAMINOPHEN 1000 MG/100 ML VIAL (NON FORMULARY) IVPB PRN (13:45)
[2019-06-24] MEDS: HYDROmorphone HCl 2 MG/ML VIAL IVPB PRN ×3 (15:01→23:17)
--- NOTE | 2019-06-24 15:06 | PN ---
Progress Note (short form) - Note Progress Note: GI CONSULT DICTATED - MRCP ORDERED - FLUIDS INCREASED TO 175CC/ HR - NPO / IVF'S - SURGERY F/U SEE FULL CONSULT DICTATED
[2019-06-24] MEDS: LACTATED RINGERS SOLUTION 1,000 ML IV SCH ×2 (16:39→22:23)
[2019-06-24 17:20] VITALS: BMI 45.7
[2019-06-24] MEDS ORDERED: DEXTROSE 5%-WATER - 50 ML IVPB ONE ×2 (18:19→23:13)
[2019-06-24] MEDS ORDERED: PIPERACILLIN/TAZOBACTAM 3.375 GM VIAL IVPB ONE ×2 (18:19→23:13)
--- NOTE | 2019-06-24 18:47 | CONS ---
DATE OF CONSULTATION: DATE OF DICTATION: 06/24/2019 HISTORY OF PRESENT ILLNESS: The patient is a 23-year-old female, past medical history of hydradenitis and bilateral axillary resection of her sweat glands, admitted to the hospital with epigastric abdominal pain that began in the morning, sudden onset, woke her up from sleep. She also admits to nausea and vomiting. She states that she used to drink heavily 2 years ago. Of note, she did have a couple of glasses of liquor the night prior to this occurring, and she did have Spanish food. Other families had the Spanish food without any symptoms. She denies any new medications, herbal supplements, or previous episodes. PAST MEDICAL AND SURGICAL HISTORY: As listed in the HPI. ALLERGIES: No known drug allergies. SOCIAL HISTORY: In the past, she used to drink a third gallon of liquor daily for a year. She quit 2 years ago, but again, she did drink a couple of alcoholic beverages prior to this occurring. Does not smoke. FAMILY HISTORY: No history of GI or gynecological malignancy, or pancreaticobiliary disease. ALLERGIES: No known drug allergies. HOME MEDICATIONS: vitamins and iron. REVIEW OF SYSTEMS: Negative for hematemesis, melena, hematochezia, weight loss. She has never had an endoscopic evaluation. PHYSICAL EXAMINATION: Vital Signs: Temperature 98, pulse 58, blood pressure 140/80, respiratory rate 12, oxygen saturation 99% on room air. General: No acute distress. HEENT: Anicteric sclerae. Cardiovascular: S1, S2, regular rate and rhythm. Lungs: Bilaterally clear to auscultation. Abdomen: Tender in the epigastrium. Obese. No rebound or guarding. Extremities: No edema. LABORATORY DATA: White blood cell count on admission 18, currently 14, hemoglobin 12, hematocrit 37, MCV 73, platelet count 335. Sodium 138, potassium 3.9, BUN 9.9, creatinine 0.7, glucose 188, bilirubin 3.6. AST 346, down from 566. ALT 456, down from 478. Lipase 2659. Urine: 1+ bilirubin. Hepatitis panel is pending. She had an abdomen and pelvis CT scan, which revealed diffuse peripancreatic inflammation and peripancreatic fluid, consistent with pancreatitis. No pseudocyst or fluid collection. The gallbladder is unremarkable. CBD was not commented on. IMPRESSION: Abdominal pain. Findings consistent with acute pancreatitis. Differential diagnosis includes alcohol induced versus microlithiasis, considering her liver tests are abnormal. Contributing factors to her abnormal liver tests may be steatosis secondary to alcoholic and non-alcoholic fatty liver disease secondary to her obesity. Other etiology of chronic liver disease should be excluded at this time. RECOMMENDATIONS: N.p.o., IV fluids, MRCP was ordered to evaluate the biliary tree. Surgery consultation. Repeat labs. CBC and LFTs tomorrow, and IV fluids should be at 150 mL per hour with follow up of her volume status. Will follow. DO DEANDRE VARMA/[id number]
[2019-06-25] MEDS: PIPERACILLIN/TAZOB 3.375 GM 3.375 GM in DEXTROSE 5%-WATER - 50 ML IVPB SCH ×2 (02:21→10:06)
[2019-06-25] MEDS: HYDROmorphone HCl 2 MG/ML VIAL IVPB PRN ×5 (03:26→21:00)
[2019-06-25] MEDS: LACTATED RINGERS SOLUTION 1,000 ML IV SCH ×2 (04:30→21:25)
[2019-06-25] MEDS ORDERED: LACTATED RINGERS SOLUTION 1,000 ML IV SCH (06:23)
[2019-06-25] MEDS: ACETAMINOPHEN 1000 MG/100 ML VIAL (NON FORMULARY) IVPB PRN (06:36)
--- NOTE | 2019-06-25 06:58 | PN.GI ---
GI Progress Note Subjective: states she has less abd pain - denies n/v ; fever noted - Objective Vital Signs: Vital Signs Temperature 99.2 F 06/25/19 06:10 Pulse Rate 85 06/25/19 06:10 Respiratory Rate 06/25/19 06:10 Blood Pressure 154/85 06/25/19 06:10 O2 Sat by Pulse Oximetry (%) 100 06/24/19 21:00 Constitutional: Well Nourished, No Distress, Calm Eyes: Yes: WNL HENT: Yes: WNL Neck: Yes: WNL Cardiovascular: Yes: WNL, Regular Rate and Rhythm Respiratory: Yes: WNL, Regular, CTA Bilaterally Gastrointestinal Inspection: Yes: WNL, Other (epigastric tenderness no rebound or guarding ; nml bs) Musculoskeletal: Yes: WNL Extremities: Yes: WNL Edema: No Labs: CBC, BMP 06/24/19 07:30 06/24/19 07:30 Problem List - Problems (1) Abnormal liver enzymes Assessment/Plan: leukocytosis and fever noted -- blood cultures are pending continue zosyn ivf's increased - monitor volume status repeat labs cbc / cmet q12 liver enzymes are down trending ; ct does not reveal biliary ductal dilation. She may have passed a stone. f/u mrcp to further evaluate the biliary tree surgery f/u npo Code(s): R74.8 - ABNORMAL LEVELS OF OTHER SERUM ENZYMES (2) Pancreatitis Code(s): K85.90 - ACUTE PANCREATITIS WITHOUT NECROSIS OR INFECTION, UNSP
[2019-06-25 07:13] LABS: HEMATOCRIT 39.2 % (32.4-45.2); HEMOGLOBIN 12.6 GM/dL (10.7-15.3); LYMPH % 4.5 % (8-40); MCH 23.9 pg (25.7-33.7); MCHC 32.2 g/dl (32.0-36.0); MEAN CELL VOLUME 74.1 fl (80-96); MEAN PLT VOLUME 7.8 fl (7.5-11.1); MONO % 2.8 % (3.8-10.2); NEUT % 92.7 % (42.8-82.8); PLATELET COUNT 332 K/MM3 (134-434); RBC 5.29 M/mm3 (3.60-5.2); RDW 15.9 % (11.6-15.6); WHITE BLOOD COUNT 22.7 K/mm3 (4.0-10.0)
[2019-06-25 07:43] LABS: ALBUMIN 2.9 g/dl (3.4-5.0); BILIRUBIN,DIRECT 0.7 mg/dL (0.0-0.2); BILIRUBIN,TOTAL 1.3 mg/dL (0.2-1); BLOOD UREA NITROGEN 6.8 mg/dL (7-18); CALCIUM 8.1 mg/dL (8.5-10.1); CREATININE 0.6 mg/dL (0.55-1.3); POTASSIUM 3.7 mmol/L (3.5-5.1); TOT PROT 6.3 g/dl (6.4-8.2)
--- NOTE | 2019-06-25 08:11 | PN ---
Progress Note (short form) - Note Progress Note: SURGERY 23yo F h/o pancreatitis gallstone vs alcoholic, seen and examined at bedside. Pt states her abd pain is mildly improved, pain still present in epigastric area. Pt denies n/v, fever, chills. Pt wbc has bumped as well as bili, planned for MRCP today. Last Vital Signs Temp Pulse Resp BP Pulse Ox 99.2 F 85 20 154/85 100 06/25/19 06:10 06/25/19 06:10 06/25/19 06:10 06/25/19 06:10 06/24/19 21:00 CBC, BMP 06/25/19 06:30 06/25/19 06:30 PE: Gen: A&O X3 Resp: breathing comfortably Abd: soft, obese, nondistended, moderate tenderness epigastric RUQ Ext: no edema Problem List - Problems (1) Pancreatitis Assessment/Plan: Plan -will follow up MRCP to evaluate for cholangitis -continue NPO, IVF, abx -GI on board -plan cholecystectomy once pancreatitis resolved. Pt discussed with Dr. Spicer who agrees with plan Code(s): K85.90 - ACUTE PANCREATITIS WITHOUT NECROSIS OR INFECTION, UNSP
[2019-06-25] MEDS ORDERED: PIPERACILLIN/TAZOBACTAM 3.375 GM VIAL IVPB ONE (09:56)
[2019-06-25] MEDS ORDERED: DEXTROSE 5%-WATER - 50 ML IVPB ONE (09:56)
[2019-06-25 10:06] LABS: ANISOCYTOSIS 1+; MACROCYTOSIS 0; PLATELET ESTIMATE NORMAL
[2019-06-25] MEDS: ENOXAPARIN NA (PORCINE) 40 MG/0.4 ML DISP.SYRIN SQ SCH (10:07)
--- NOTE | 2019-06-25 10:13 | EKG ---
Test Reason : Blood Pressure : / mmHG Vent. Rate : 055 BPM Atrial Rate : 055 BPM P-R Int : 156 ms QRS Dur : 088 ms QT Int : 436 ms P-R-T Axes : 004 029 019 degrees QTc Int : 417 ms SINUS BRADYCARDIA OTHERWISE NORMAL ECG NO PREVIOUS ECGS AVAILABLE Confirmed by Aron Delgado ([id number]) on 06/25/2019 10:12:46 AM Referred By: Confirmed By:Aron Delgado
--- NOTE | 2019-06-25 11:39 | PN ---
Physical Exam: SUBJECTIVE: Patient seen and examined. Abdominal pain, nausea, vomiting are better today. OBJECTIVE: Vital Signs Period Temp Pulse Resp BP Sys/Lewis Pulse Ox Last 24 Hr 98.1 F-99.2 F 60-85 16-20 129-154/62-85 100-100 GENERAL: The patient is awake, alert, and fully oriented, in no distress. LUNGS: Breath sounds equal, clear to auscultation bilaterally, no wheezes, no crackles, no accessory muscle use. HEART: Regular rate and rhythm, S1, S2 without murmur, rub or gallop. ABDOMEN: Obese, soft, (+) mild epigastric tenderness, nondistended, normoactive bowel sounds, no guarding, no rebound, no hepatosplenomegaly, no masses. EXTREMITIES: 2+ pulses, warm, well-perfused, no edema. Laboratory Results - last 24 hr 06/24/19 06/25/19 06/25/19 07:30 06:30 06:30 WBC 22.7 H RBC 5.29 H Hgb 12.6 Hct 39.2 MCV 74.1 L MCH 23.9 L MCHC 32.2 RDW 15.9 H Plt Count 332 MPV 7.8 Absolute Neuts (auto) 21.0 H Neutrophils % 92.7 H Neutrophils % (Manual) 92.4 H 93.8 H Band Neutrophils % 1.1 0.0 Lymphocytes % 4.5 L Lymphocytes % (Manual) 4.3 L 2.1 L D Monocytes % 2.8 L Monocytes % (Manual) 1 L 0 L D Eosinophils % 0.0 Eosinophils % (Manual) 0.0 0.0 Basophils % 0.0 Basophils % (Manual) 1.1 0.0 Myelocytes % (Man) 0 0 Promyelocytes % (Man) 0 0 Blast Cells % (Manual) 0 0 Nucleated RBC % 0 Metamyelocytes 0 0 Hypochromia 0 0 Platelet Estimate Normal Normal Polychromasia 0 1+ Poikilocytosis 0 Anisocytosis 0 1+ Microcytosis 0 1+ Macrocytosis 0 0 Sodium 137 Potassium 3.7 Chloride 104 Carbon Dioxide 24 Anion Gap 9 BUN 6.8 L Creatinine 0.6 Est GFR (CKD-EPI)AfAm 146.83 Est GFR (CKD-EPI)NonAf 126.68 Random Glucose 142 H Calcium 8.1 L Total Bilirubin 1.3 H D Direct Bilirubin 0.7 H AST 75 H ALT 257 H Alkaline Phosphatase 156 H Total Protein 6.3 L Albumin 2.9 L Lipase 1095 H Active Medications Generic Name Dose Route Start Last Admin Trade Name Bayq PRN Reason Stop Dose Admin Enoxaparin Sodium 40 mg 06/24/19 10:00 06/25/19 10:07 Lovenox - SQ 40 mg DAILY LULU Administration Hydromorphone HCl 2 mg 06/24/19 10:42 06/25/19 07:27 Dilaudid Vial - IVPB 2 mg Q4H PRN Administration PAIN LEVEL 6-10 Piperacillin Sod/Tazobactam 50 mls @ 100 mls/hr 06/24/19 18:00 06/25/19 10:06 Sod 3.375 gm/ Dextrose IVPB 100 mls/hr Q8H-IV LULU Administration Protocol Lactated Ringer's 1,000 mls @ 125 mls/hr 06/25/19 06:23 06/25/19 06:31 Lactated Ringers Solution IV Not Given ASDIR LULU Ondansetron HCl 4 mg 06/24/19 10:44 06/24/19 10:55 Zofran Injection IVPUSH 4 mg Q4H PRN Administration NAUSEA AND/OR VOMITING ASSESSMENT/PLAN: This is a 23 year old woman with a history of hidradenitis suppurativa, resection of bilateral axillary sweat glands, alcohol abuse who presented to the ED with abdominal pain. 1. Acute pancreatitis with possible acute cholecstitis, possible choledocholithiasis, possible acute cholangitis - Likely secondary to gallstones, possibly alcohol induced - CTAP shows diffuse pancreatic inflammation and peripancreatic fluid c/w pancreatitis, no abscess or pseudocyst - RUQ US shows cholelithiasis, minimal to mild diffuse gallbladder wall edema , no biliary ductal dilatation, hepatic steatosis, acute pancreatitis - Maintain NPO - Continue IV fluid - Continue Zosyn - Continue Dilaudid as needed for pain, Zofran as needed for nausea - AST, ALT, alk phos, bili improving - possibly passed stone - MRCP ordered 2. History of alcohol abuse - States she quit 2 years ago, but had a couple of drniks the night before her symptoms started Visit type - Emergency Visit Emergency Visit: Yes ED Registration Date: 06/23/19 Care time: The patient presented to the Emergency Department on the above date and was hospitalized for further evaluation of their emergent condition. - New Patient This patient is new to me today: No - Critical Care Critical Care patient: No - Discharge Referral Referred to [facility] Med P.C.: No
--- NOTE | 2019-06-25 12:39 | CON.ID ---
Consult Consult Specialty:: infectious diseases Referred by:: Reason for Consultation:: abd pain,choleycystitis ,pancreatitis - History of Present Illness Chief Complaint: abd pain History of Present Illness: 23 year old female with past medical history of hidradenitis suppurativa s/p bilateral axillary resection of sweat glands, admitted due to worsening abdominal pain Patient reported she experienced sudden onset, severe, periumbilical pain that woke her up from her sleep . Pain resolved and patient was able to get back to sleep. During the day, patient started to experience worsening of the abdominal pain. She described it as constant, 10/10 sharp pain in the periumbilical area, worsened by food and not relieved by NSAIDs. She also reported nausea and NBNB vomiting. She had guatem[place] food . Of note, patient had been a heavy drinker 2 years ago, where she would consume 1/3 gallon liquor for about a year. Last night, she had a couple glasses of liquor. Patient denies any fevers, chills, headache, dizziness, chest pain, SOB, diarrhea, urinary symptoms. - History Source History Provided By: Patient Limitations to Obtaining History: No Limitations - Past Medical History ...LMP: 06/10/19 ...: No - Alcohol/Substance Use Hx Alcohol Use: Yes - Smoking History Smoking history: Current every day smoker Aproximately how many cigarettes per day: 20 Home Medications - Allergies Allergies/Adverse Reactions: Allergies Allergy/AdvReac Type Severity Reaction Status Date / Time No Known Allergies Allergy Verified 06/23/19 19:13 - Home Medications Home Medications: Ambulatory Orders Vitamins (Sjr) - 1 tab PO DAILY 12/05/18 Ferrous Sulfate [Feosol] 325 mg PO DAILY 01/15/19 Review of Systems - Review of Systems Constitutional: reports: Weakness, Other Eyes: reports: No Symptoms HENT: reports: No Symptoms Neck: reports: No Symptoms Cardiovascular: reports: No Symptoms Respiratory: reports: No Symptoms Gastrointestinal: reports: Abdominal Pain, Nausea, Vomiting Genitourinary: reports: No Symptoms Musculoskeletal: reports: No Symptoms Integumentary: reports: No Symptoms Neurological: reports: No Symptoms Endocrine: reports: No Symptoms Hematology/Lymphatic: reports: No Symptoms Psychiatric: reports: No Symptoms Physical Exam Vital Signs: Vital Signs Temperature 99.2 F 06/25/19 06:10 Pulse Rate 85 06/25/19 06:10 Respiratory Rate 20 06/25/19 06:10 Blood Pressure 154/85 06/25/19 06:10 O2 Sat by Pulse Oximetry (%) 100 06/24/19 21:00 Constitutional: Yes: Moderate Distress, Obese (severe obese) Eyes: Yes: Conjunctiva Clear HENT: Yes: Atraumatic, Normocephalic Neck: Yes: Supple, Trachea Midline Cardiovascular: Yes: Regular Rate and Rhythm Respiratory: Yes: Regular, CTA Bilaterally Gastrointestinal: Yes: Tenderness, Other (absent bowel sounds) Musculoskeletal: Yes: WNL Extremities: Yes: WNL Neurological: Yes: Alert, Oriented Psychiatric: Yes: Alert, Oriented Labs: CBC, BMP 06/25/19 06:30 06/25/19 06:30 Imaging - Results Cat Scan: Report Reviewed, Image Reviewed Ultrasound: Report Reviewed, Image Reviewed Assessment/Plan 23 year old woman with a history of hidradenitis suppurativa, resection of bilateral axillary sweat glands 1. Acute pancreatitis 2. Acute cholecystitis 3. Possible choledocholithiasis 4 leukocytosis 5 etoh abuse 6 smoker plan continue current mgmt continue abx repeat imaging if wbc starts climbing surgery on case npo hydration close watch
[2019-06-25] MEDS ORDERED: ACETAMINOPHEN 1000 MG/100 ML VIAL (NON FORMULARY) IVPB ONE ×2 (15:03→23:15)
[2019-06-25] MEDS ORDERED: DEXTROSE 5%-WATER 100 ML IVPB ONE (16:57)
[2019-06-25] MEDS ORDERED: PIPERACILLIN/TAZOBACTAM 4.5 GM VIAL IVPB ONE (16:57)
[2019-06-25] MEDS: PIPERACILLIN/TAZOB 4.5 GM 4.5 GM in DEXTROSE 5%-WATER 100 ML IVPB SCH (17:17)
[2019-06-25] MEDS ORDERED: METOPROLOL TARTRATE 5 MG/5 ML VIAL IVPB ONE (23:17)
[2019-06-26] MEDS ORDERED: PIPERACILLIN/TAZOBACTAM 4.5 GM VIAL IVPB ONE ×3 (00:18→18:20)
[2019-06-26] MEDS ORDERED: DEXTROSE 5%-WATER 100 ML IVPB ONE ×3 (00:18→18:20)
[2019-06-26] MEDS: HYDROmorphone HCl 2 MG/ML VIAL IVPB PRN ×5 (01:14→20:01)
[2019-06-26] MEDS: PIPERACILLIN/TAZOB 4.5 GM 4.5 GM in DEXTROSE 5%-WATER 100 ML IVPB SCH ×3 (01:25→18:29)
[2019-06-26] MEDS: LACTATED RINGERS SOLUTION 1,000 ML IV SCH (06:20)
--- NOTE | 2019-06-26 07:28 | PN ---
Progress Note (short form) - Note Progress Note: SURGERY 23yo F h/o pancreatitis gallstone vs alcoholic, seen and examined at bedside with medical attending. Pt states her abd pain is slightly improved, pain still focal epigastric area. She continues to be nauseous and states that she felt feverish overnight. The patient has been tachycardic and tacypneic throughout the night despite sitting upright. She does sleep with several pillows at home in a slightly recumbent position but denies having COPD. She denies any vomiting, H/A, or CP. She was unable to tolerate the MRCP 2/2 claustrophobia Vital Signs Temp 98.5 F 06/26/19 06:00 Pulse 136 H 06/26/19 06:00 Resp 38 H 06/26/19 06:00 BP 157/86 06/26/19 06:00 Pulse Ox 95 06/25/19 21:00 Intake & Output 06/25/19 06/25/19 06/26/19 11:59 23:59 11:59 Intake Total 2125 200 1375 Balance 2125 200 1375 Weight 292 lb Intake: IV 1925 1225 Lactated Ringers Solution 625 1,000 ml @ 125 mls/hr IV ASDIR LULU Rx#: [id number] Lactated Ringers Solution 1925 600 1,000 ml @ 175 mls/hr IV ASDIR LULU Rx#: [id number] IVPB 200 200 150 Oral 0 Other: Voiding Method Toilet Toilet # Unmeasured Voids Void 2 2 Bowel Movement No Height 5 ft 7 in Body Mass Index (BMI) 45.7 CBC, BMP 06/26/19 06:45 Abnormal Lab Results 06/25/19 06/26/19 06/26/19 06:30 06:45 06:45 WBC 22.4 H MCV 73.7 L MCH 23.6 L RDW 16.0 H Absolute Neuts (auto) 20.5 H Neutrophils % 91.7 H Neutrophils % (Manual) 93.8 H Lymphocytes % 4.4 L Lymphocytes % (Manual) 2.1 L D Monocytes % (Manual) 0 L D PT with INR 18.40 H INR 1.55 H Total Bilirubin Direct Bilirubin ALT Total Protein Albumin 06/26/19 06:45 WBC MCV MCH RDW Absolute Neuts (auto) Neutrophils % Neutrophils % (Manual) Lymphocytes % Lymphocytes % (Manual) Monocytes % (Manual) PT with INR INR Total Bilirubin 2.2 H Direct Bilirubin 1.1 H ALT 135 H Total Protein 5.9 L Albumin 2.4 L PE: Gen: A&O X3, somnolent but cooperates with exam Resp: tachypneic on 2L NC Abd: soft, obese, nondistended, moderate tenderness throughout both upper quadrants, hypoactive bowel sounds Ext: no edema CXR 06/25/19: Left effusion with Left base atelectasis or infiltrate Problem List - Problems (1) Pancreatitis Assessment/Plan: 23yo with pancreatitis, Possible choledocholithiasis, suspicion for colangitis. -transfer to ICU for close observation -trend labs - GI recommendations appreciated if cannot tolerated MRCP - IV ABX per ID/sepsis work up pending - continue NPO, IVF, abx -GI on board -plan cholecystectomy once pancreatitis resolved. Pt discussed with Dr. Spicer who agrees with plan Code(s): K85.90 - ACUTE PANCREATITIS WITHOUT NECROSIS OR INFECTION, UNSP
[2019-06-26 07:35] LABS: BASO % 0.1 % (0-2.0); HEMATOCRIT 34.8 % (32.4-45.2); HEMOGLOBIN 11.2 GM/dL (10.7-15.3); LYMPH % 4.4 % (8-40); MCH 23.6 pg (25.7-33.7); MCHC 32.1 g/dl (32.0-36.0); MEAN CELL VOLUME 73.7 fl (80-96); MEAN PLT VOLUME 7.5 fl (7.5-11.1); MONO % 3.8 % (3.8-10.2); NEUT % 91.7 % (42.8-82.8); PLATELET COUNT 272 K/MM3 (134-434); RBC 4.72 M/mm3 (3.60-5.2); WHITE BLOOD COUNT 22.4 K/mm3 (4.0-10.0)
[2019-06-26 07:42] LABS: INR 1.55 (0.83-1.09); PROTHROMBIN TIME (PATIENT) 18.4 SEC (9.7-13.0)
[2019-06-26 07:59] LABS: ALBUMIN 2.4 g/dl (3.4-5.0); BILIRUBIN,DIRECT 1.1 mg/dL (0.0-0.2); BILIRUBIN,TOTAL 2.2 mg/dL (0.2-1); TOT PROT 5.9 g/dl (6.4-8.2)
[2019-06-26 08:26] LABS: ALBUMIN 2.5 g/dl (3.4-5.0); BILIRUBIN,DIRECT 1.1 mg/dL (0.0-0.2); BILIRUBIN,TOTAL 1.9 mg/dL (0.2-1); BLOOD UREA NITROGEN 7.5 mg/dL (7-18); CALCIUM 7.9 mg/dL (8.5-10.1); CREATININE 0.6 mg/dL (0.55-1.3); POTASSIUM 3.6 mmol/L (3.5-5.1); TOT PROT 5.9 g/dl (6.4-8.2)
[2019-06-26] MEDS: ONDANSETRON 4 MG/2 ML VIAL IVPUSH PRN (08:54)
[2019-06-26 09:17] LABS: ARTERIAL BLD GAS O2 SATURATION 96.9 % (95-98); ARTERIAL BLOOD GAS BASE EXCESS 2.1 meq/l (-2-2); ARTERIAL BLOOD GAS PCO2 34.8 mmHg (35-45); ARTERIAL BLOOD GAS PO2 88.1 mmHg (80-100); ARTERIAL BLOOD GAS pH 7.47 (7.35-7.45)
--- NOTE | 2019-06-26 09:22 | PN ---
Physical Exam: SUBJECTIVE: Patient seen and examined at bedside. pt states she feels a little short of breath. she states this started the past night. she states her pain is better controlled rating 3/10 OBJECTIVE: Vital Signs Period Temp Pulse Resp BP Sys/Lewis Pulse Ox Last 24 Hr 98.5 F-101.0 F 100-144 19-38 136-157/65-92 95 GENERAL: The patient is awake, alert, and fully oriented, in no acute distress. HEAD: Normal with no signs of trauma. LUNGS: Breath sounds equal, no wheezes, no crackles, no accessory muscle use. tachypneic HEART:tachycardic, regular rhythm, S1, S2 without murmur, rub or gallop. ABDOMEN: Soft, tender to palpation RUQ, LUG, epigastic areas; nondistended, normoactive bowel sounds EXTREMITIES: 2+ pulses, warm, well-perfused, no edema. SKIN: Warm, dry, normal turgor, no rashes or lesions noted Laboratory Last Values WBC 22.4 K/mm3 (4.0-10.0) H 06/26/19 06:45 RBC 4.72 M/mm3 (3.60-5.2) 06/26/19 06:45 Hgb 11.2 GM/dL (10.7-15.3) 06/26/19 06:45 Hct 34.8 % (32.4-45.2) 06/26/19 06:45 MCV 73.7 fl (80-96) L 06/26/19 06:45 MCH 23.6 pg (25.7-33.7) L 06/26/19 06:45 MCHC 32.1 g/dl (32.0-36.0) 06/26/19 06:45 RDW 16.0 % (11.6-15.6) H 06/26/19 06:45 Plt Count 272 K/MM3 (134-434) 06/26/19 06:45 MPV 7.5 fl (7.5-11.1) 06/26/19 06:45 Absolute Neuts (auto) 20.5 K/mm3 (1.5-8.0) H 06/26/19 06:45 Neutrophils % 91.7 % (42.8-82.8) H 06/26/19 06:45 Neutrophils % (Manual) 93.8 % (42.8-82.8) H 06/25/19 06:30 Band Neutrophils % 0.0 % 06/25/19 06:30 Lymphocytes % 4.4 % (8-40) L 06/26/19 06:45 Lymphocytes % (Manual) 2.1 % (8-40) L D 06/25/19 06:30 Monocytes % 3.8 % (3.8-10.2) 06/26/19 06:45 Monocytes % (Manual) 0 % (3.8-10.2) L D 06/25/19 06:30 Eosinophils % 0.0 % (0-4.5) 06/26/19 06:45 Eosinophils % (Manual) 0.0 % (0-4.5) 06/25/19 06:30 Basophils % 0.1 % (0-2.0) D 06/26/19 06:45 Basophils % (Manual) 0.0 % (0-2.0) 06/25/19 06:30 Myelocytes % (Man) 0 % (0-2) 06/25/19 06:30 Promyelocytes % (Man) 0 % (0-2) 06/25/19 06:30 Blast Cells % (Manual) 0 % (0-0) 06/25/19 06:30 Nucleated RBC % 0 % (0-0) 06/26/19 06:45 Metamyelocytes 0 % (0-2) 06/25/19 06:30 Hypochromia 0 06/25/19 06:30 Platelet Estimate Normal 06/25/19 06:30 Polychromasia 1+ 06/25/19 06:30 Poikilocytosis 0 06/25/19 06:30 Anisocytosis 1+ 06/25/19 06:30 Microcytosis 1+ 06/25/19 06:30 Macrocytosis 0 06/25/19 06:30 PT with INR 18.40 SEC (9.7-13.0) H 06/26/19 06:45 INR 1.55 (0.83-1.09) H 06/26/19 06:45 Anticoagulation Therapy No Result Required. 06/26/19 09:05 Puncture Site Cancelled 06/26/19 06:30 Patient Temperature Cancelled 06/26/19 06:30 ABG pH Cancelled 06/26/19 06:30 ABG pCO2 at Pt Temp Cancelled 06/26/19 06:30 ABG pO2 at Pt Temp Cancelled 06/26/19 06:30 ABG HCO3 Cancelled 06/26/19 06:30 ABG O2 Sat (Measured) Cancelled 06/26/19 06:30 ABG O2 Content Cancelled 06/26/19 06:30 ABG Base Excess Cancelled 06/26/19 06:30 Emery Test Cancelled 06/26/19 06:30 O2 Delivery Device No Result Required. 06/26/19 09:05 Oxygen Flow Rate No Result Required. 06/26/19 09:05 Vent Mode No Result Required. 06/26/19 09:05 Vent Rate No Result Required. 06/26/19 09:05 Mechanical Rate No Result Required. 06/26/19 09:05 PEEP Cancelled 06/26/19 06:30 Pressure Support Vent No Result Required. 06/26/19 09:05 Sodium 136 mmol/L (136-145) 06/26/19 06:45 Potassium 3.6 mmol/L (3.5-5.1) 06/26/19 06:45 Chloride 103 mmol/L (98-107) 06/26/19 06:45 Carbon Dioxide 24 mmol/L (21-32) 06/26/19 06:45 Anion Gap 8 MMOL/L (8-16) 06/26/19 06:45 BUN 7.5 mg/dL (7-18) 06/26/19 06:45 Creatinine 0.6 mg/dL (0.55-1.3) 06/26/19 06:45 Est GFR (CKD-EPI)AfAm 146.83 06/26/19 06:45 Est GFR (CKD-EPI)NonAf 126.68 06/26/19 06:45 Random Glucose 147 mg/dL (74-106) H 06/26/19 06:45 Lactic Acid 1.3 mmol/L (0.4-2.0) 06/23/19 22:45 Calcium 7.9 mg/dL (8.5-10.1) L 06/26/19 06:45 Phosphorus 4.0 mg/dL (2.5-4.9) 06/24/19 07:30 Magnesium 2.1 mg/dL (1.8-2.4) 06/24/19 07:30 Total Bilirubin 1.9 mg/dL (0.2-1) H 06/26/19 06:45 Direct Bilirubin 1.1 mg/dL (0.0-0.2) H 06/26/19 06:45 AST 33 U/L (15-37) 06/26/19 06:45 ALT 134 U/L (13-61) H 06/26/19 06:45 Alkaline Phosphatase 122 U/L (45-117) H 06/26/19 06:45 C-Reactive Protein 31.7 MG/DL (0.00-0.3) H 06/26/19 06:45 Total Protein 5.9 g/dl (6.4-8.2) L 06/26/19 06:45 Albumin 2.5 g/dl (3.4-5.0) L 06/26/19 06:45 Triglycerides 42 mg/dL (0-150) 06/24/19 07:30 Cholesterol 122 mg/dL (50-200) 06/24/19 07:30 Total LDL Cholesterol 62 mg/dL (5-100) 06/24/19 07:30 HDL Cholesterol 52 mg/dL (40-60) 06/24/19 07:30 Total Amylase 186 U/L (25-115) H 06/26/19 06:45 Lipase 344 U/L (73-393) 06/26/19 06:45 Beta HCG, Quant < 1.0 mIU/ml 06/23/19 19:59 Urine Color Dk yellow 06/23/19 22:58 Urine Appearance Clear 06/23/19 22:58 Urine pH 7.0 (5.0-8.0) 06/23/19 22:58 Ur Specific [place] 1.020 (1.010-1.035) 06/23/19 22:58 Urine Protein Trace (NEGATIVE) 06/23/19 22:58 Urine Glucose (UA) Negative (NEGATIVE) 06/23/19 22:58 Urine Ketones Negative (NEGATIVE) 06/23/19 22:58 Urine Blood Negative (NEGATIVE) 06/23/19 22:58 Urine Nitrite Negative (NEGATIVE) 06/23/19 22:58 Urine Bilirubin 1+ (NEGATIVE) H 06/23/19 22:58 Urine Urobilinogen 1.0 mg/dL (0.2-1.0) 06/23/19 22:58 Ur Leukocyte Esterase Negative (NEGATIVE) 06/23/19 22:58 Urine HCG, Qual Negative 06/23/19 22:58 Hep A IgM Ab Confirm Negative (Negative) 06/24/19 07:30 Hep Bs Antigen Negative (Negative) 06/24/19 07:30 Hep B Core IgM Ab Negative (Negative) 06/24/19 07:30 Hepatitis C Ab (EIA) <0.1 s/co ratio (0.0-0.9) 06/24/19 07:30 Current Medications Hydromorphone HCl (Dilaudid Vial -) 2 mg IVPB Q4H PRN PRN Reason: PAIN LEVEL 6-10 Last Admin: 06/26/19 05:20 Dose: 2 mg Piperacillin Sod/Tazobactam (Sod 4.5 gm/ Dextrose) 100 mls @ 200 mls/hr IVPB Q8H-IV LULU; Protocol Last Admin: 06/26/19 09:04 Dose: 200 mls/hr Lactated Ringer's (Lactated Ringers Solution) 1,000 mls @ 175 mls/hr IV ASDIR LULU Last Admin: 06/26/19 06:20 Dose: 175 mls/hr Ondansetron HCl (Zofran Injection) 4 mg IVPUSH Q4H PRN PRN Reason: NAUSEA AND/OR VOMITING Last Admin: 06/26/19 08:54 Dose: 4 mg ASSESSMENT/PLAN: 23 yo F PMH of hiradrenitis suppurtica, hx of alcohol abuse presented to ED for abdominal pain. Pt is admitted for acute pancreatitis. Sepsis 2/2 Acute pancreatitis 2/2 choledocolithiasis - CTA/P reviewed: diffuse pancreatic inflammation and peripancreatic fluid c/w pancreatitis, no abscess or pseudocyst -RUQ US shows cholelithiasis, minimal to mild diffuse gallbladder wall edema, no biliary ductal dilatation, hepatic steatosis, acute pancreatitis - Maintain NPO, advance to clear liquids as tolerated -IVF, pain control with dilaudid, zofran for nausea - Continue Zosyn - TBili/ Dbili increased today - ERCP 2, 3 stones removed from distal CBD - GI following ( Dr. Hernández) - plan for cholecystectomy once pancreatitis resolves Morbid obesity -BMI 45.7 Dispo: continue med/ surg Visit type - Emergency Visit Emergency Visit: No - New Patient This patient is new to me today: Yes Date on this admission: 06/26/19 - Critical Care Critical Care patient: No - Discharge Referral Referred to [facility] Med P.C[facility] No ATTENDING PHYSICIAN STATEMENT I saw and evaluated the patient. I reviewed the resident's note and discussed the case with the resident. I agree with the resident's findings and plan as documented. SUBJECTIVE: OBJECTIVE: ASSESSMENT AND PLAN:
--- NOTE | 2019-06-26 09:28 | CONSULT ---
Consultation: REQUESTING PROVIDER: Dr Braun CONSULT REQUEST: Critical care consult for tachycardia and tachypnea HISTORY OF PRESENT ILLNESS: 23 yo f w/ PMH hidradenitis supperativa s/p b/l axillary sweat gland resection who was admitted to [facility] on 06/23/19 for pancreatitis. Over the past 2 days, the patient's primary team has noted worsening SOB and lethargy and consulted ICU for concerns for impending ARDS or respiratory failure as well as potential narcotizing pancreatitis. On interview, the patient was found sleeping but was easily rousable to voice and tactile stimuli. She answered questions appropriately and spoke in full sentences. Patient endorsed epigastric abdominal pain radiating to her back which was present on her admission. The patient also endorses SOB and difficulty breathing which began shortly after her admission. The patient states that both her abdominal pain and her SOB were unchanged since her admission. Patient states that breathing deeply exacerbates her abdominal pain. REVIEW OF SYSTEMS: CONSTITUTIONAL: Absent: fever, chills, diaphoresis, generalized weakness, malaise, loss of appetite, weight change HEENT: Absent: rhinorrhea, nasal congestion, throat pain, throat swelling, difficulty swallowing, mouth swelling, ear pain, eye pain, visual changes CARDIOVASCULAR: Absent: chest pain, syncope, palpitations, irregular heart rate, lightheadedness, peripheral edema RESPIRATORY: Absent: cough, shortness of breath, dyspnea with exertion, orthopnea, wheezing, stridor, hemoptysis GASTROINTESTINAL: Absent: diarrhea, constipation, melena, hematochezia GENITOURINARY: Absent: dysuria, frequency, urgency, hesitancy, hematuria, flank pain, genital pain MUSCULOSKELETAL: Absent: myalgia, arthralgia, joint swelling, back pain, neck pain SKIN: Absent: rash, itching, pallor HEMATOLOGIC/IMMUNOLOGIC: Absent: easy bleeding, easy bruising, lymphadenopathy, frequent infections ENDOCRINE: Absent: unexplained weight gain, unexplained weight loss, heat intolerance, cold intolerance NEUROLOGIC: Absent: headache, focal weakness or paresthesias, dizziness, unsteady gait, seizure, mental status changes, bladder or bowel incontinence PSYCHIATRIC: Absent: anxiety, depression, suicidal or homicidal ideation, hallucinations. PHYSICAL EXAMINATION Vital Signs - 24 hr 06/25/19 06/25/19 06/25/19 10:00 15:00 17:11 Temperature 98.8 F 100.5 F H 99.6 F Pulse Rate 100 H 133 H Respiratory 20 20 Rate Blood Pressure 147/87 143/82 O2 Sat by Pulse Oximetry (%) 06/25/19 06/25/19 06/25/19 19:13 20:00 21:00 Temperature 99.7 F H 101.0 F H Pulse Rate 132 H 136 H Respiratory 20 19 20 Rate Blood Pressure 144/77 155/91 O2 Sat by Pulse 95 Oximetry (%) 06/25/19 06/25/19 06/26/19 23:00 23:27 01:57 Temperature 100.6 F H 98.9 F Pulse Rate 144 H 144 H 142 H Respiratory 19 20 Rate Blood Pressure 149/73 149/73 136/65 O2 Sat by Pulse Oximetry (%) 06/26/19 06/26/19 06:00 08:26 Temperature 98.5 F 99.0 F Pulse Rate 136 H 120 H Respiratory 38 H 21 H Rate Blood Pressure 157/86 153/92 O2 Sat by Pulse Oximetry (%) GENERAL: Drowsy but easily rousable to voice. fully oriented, in no acute distress. HEAD: Normal with no signs of trauma. EYES: Pupils equal, round and reactive to light, extraocular movements intact, sclera anicteric, conjunctiva clear. No lid lag. LUNGS: Decreased inspiratory effort. Tachypnea. Decreased breath sounds noted at the bases b/l. No wheezing or crackles. HEART: Regular rate and rhythm, normal S1 and S2 without murmur, rub or gallop. ABDOMEN: Soft not distended, normoactive bowel sounds. Tenderness to palpation in the epigastrium. LOWER EXTREMITIES: 2+ pulses, warm, well-perfused. No calf tenderness. No peripheral edema. NEUROLOGICAL: Cranial nerves II-X intact. Normal speech. Laboratory Results - last 24 hr 06/24/19 06/25/19 06/26/19 07:30 06:30 06:30 WBC RBC Hgb Hct MCV MCH MCHC RDW Plt Count MPV Absolute Neuts (auto) Neutrophils % Neutrophils % (Manual) 93.8 H Band Neutrophils % 0.0 Lymphocytes % Lymphocytes % (Manual) 2.1 L D Monocytes % Monocytes % (Manual) 0 L D Eosinophils % Eosinophils % (Manual) 0.0 Basophils % Basophils % (Manual) 0.0 Myelocytes % (Man) 0 Promyelocytes % (Man) 0 Blast Cells % (Manual) 0 Nucleated RBC % Metamyelocytes 0 Hypochromia 0 Platelet Estimate Normal Polychromasia 1+ Poikilocytosis 0 Anisocytosis 1+ Microcytosis 1+ Macrocytosis 0 PT with INR INR Anticoagulation Therapy Cancelled Puncture Site Cancelled Patient Temperature Cancelled ABG pH Cancelled ABG pCO2 at Pt Temp Cancelled ABG pO2 at Pt Temp Cancelled ABG HCO3 Cancelled ABG O2 Sat (Measured) Cancelled ABG O2 Content Cancelled ABG Base Excess Cancelled Emery Test Cancelled O2 Delivery Device Cancelled Oxygen Flow Rate Cancelled Vent Mode Cancelled Vent Rate Cancelled Mechanical Rate Cancelled PEEP Cancelled Pressure Support Vent Cancelled Sodium Potassium Chloride Carbon Dioxide Anion Gap BUN Creatinine Est GFR (CKD-EPI)AfAm Est GFR (CKD-EPI)NonAf Random Glucose Calcium Total Bilirubin Direct Bilirubin AST ALT Alkaline Phosphatase C-Reactive Protein Total Protein Albumin Total Amylase Lipase Hep A IgM Ab Confirm Negative Hep Bs Antigen Negative Hep B Core IgM Ab Negative Hepatitis C Ab (EIA) <0.1 06/26/19 06/26/19 06/26/19 06:45 06:45 06:45 WBC 22.4 H RBC 4.72 Hgb 11.2 Hct 34.8 MCV 73.7 L MCH 23.6 L MCHC 32.1 RDW 16.0 H Plt Count 272 MPV 7.5 Absolute Neuts (auto) 20.5 H Neutrophils % 91.7 H Neutrophils % (Manual) Band Neutrophils % Lymphocytes % 4.4 L Lymphocytes % (Manual) Monocytes % 3.8 Monocytes % (Manual) Eosinophils % 0.0 Eosinophils % (Manual) Basophils % 0.1 D Basophils % (Manual) Myelocytes % (Man) Promyelocytes % (Man) Blast Cells % (Manual) Nucleated RBC % 0 Metamyelocytes Hypochromia Platelet Estimate Polychromasia Poikilocytosis Anisocytosis Microcytosis Macrocytosis PT with INR 18.40 H INR 1.55 H Anticoagulation Therapy Puncture Site Patient Temperature ABG pH ABG pCO2 at Pt Temp ABG pO2 at Pt Temp ABG HCO3 ABG O2 Sat (Measured) ABG O2 Content ABG Base Excess Emery Test O2 Delivery Device Oxygen Flow Rate Vent Mode Vent Rate Mechanical Rate PEEP Pressure Support Vent Sodium 136 Potassium 3.6 Chloride 103 Carbon Dioxide 24 Anion Gap 8 BUN 7.5 Creatinine 0.6 Est GFR (CKD-EPI)AfAm 146.83 Est GFR (CKD-EPI)NonAf 126.68 Random Glucose 147 H Calcium 7.9 L Total Bilirubin 1.9 H Direct Bilirubin 1.1 H AST 33 ALT 134 H Alkaline Phosphatase 122 H C-Reactive Protein 31.7 H Total Protein 5.9 L Albumin 2.5 L Total Amylase 186 H Lipase 344 Hep A IgM Ab Confirm Hep Bs Antigen Hep B Core IgM Ab Hepatitis C Ab (EIA) 06/26/19 06:45 WBC RBC Hgb Hct MCV MCH MCHC RDW Plt Count MPV Absolute Neuts (auto) Neutrophils % Neutrophils % (Manual) Band Neutrophils % Lymphocytes % Lymphocytes % (Manual) Monocytes % Monocytes % (Manual) Eosinophils % Eosinophils % (Manual) Basophils % Basophils % (Manual) Myelocytes % (Man) Promyelocytes % (Man) Blast Cells % (Manual) Nucleated RBC % Metamyelocytes Hypochromia Platelet Estimate Polychromasia Poikilocytosis Anisocytosis Microcytosis Macrocytosis PT with INR INR Anticoagulation Therapy Puncture Site Patient Temperature ABG pH ABG pCO2 at Pt Temp ABG pO2 at Pt Temp ABG HCO3 ABG O2 Sat (Measured) ABG O2 Content ABG Base Excess Emery Test O2 Delivery Device Oxygen Flow Rate Vent Mode Vent Rate Mechanical Rate PEEP Pressure Support Vent Sodium Potassium Chloride Carbon Dioxide Anion Gap BUN Creatinine Est GFR (CKD-EPI)AfAm Est GFR (CKD-EPI)NonAf Random Glucose Calcium Total Bilirubin 2.2 H Direct Bilirubin 1.1 H AST 31 ALT 135 H Alkaline Phosphatase 116 C-Reactive Protein Total Protein 5.9 L Albumin 2.4 L Total Amylase Lipase Hep A IgM Ab Confirm Hep Bs Antigen Hep B Core IgM Ab Hepatitis C Ab (EIA) Active Medications Generic Name Dose Route Start Last Admin Trade Name Freq PRN Reason Stop Dose Admin Hydromorphone HCl 2 mg 06/24/19 10:42 06/26/19 05:20 Dilaudid Vial - IVPB 2 mg Q4H PRN Administration PAIN LEVEL 6-10 Piperacillin Sod/Tazobactam 100 mls @ 200 mls/hr 06/25/19 18:00 06/26/19 09:04 Sod 4.5 gm/ Dextrose IVPB 200 mls/hr Q8H-IV LULU Administration Protocol Lactated Ringer's 1,000 mls @ 175 mls/hr 06/25/19 17:57 06/26/19 06:20 Lactated Ringers Solution IV 175 mls/hr ASDIR LULU Administration Ondansetron HCl 4 mg 06/24/19 10:44 06/26/19 08:54 Zofran Injection IVPUSH 4 mg Q4H PRN Administration NAUSEA AND/OR VOMITING ASSESSMENT/PLAN: 23 yo f w/ PMH hidradenitis supperativa s/p b/l axillary sweat gland resection who was admitted to [facility] on 06/23/19 for pancreatitis. Over the past 2 days, the patient's primary team has noted worsening SOB and lethargy and consulted ICU for concerns for impending ARDS or respiratory failure. #Neuro -patient lethargic but easily rousable -possibly 2/2 pain medication/sleep loss -hold narcotics of patient's mental stsus continues to deteriorate -ABG rules out CO2 retention. #Cardio -BP stable no signs of shock #Pulmonary -patient noted to tachypnic -Patient saturating 97% on NC -ABG shows respiratory alkalosis -CXR from today unchanged from yesterday; no signs of ARDS. Possible effusions at the bases; suggest monitoring fluid status -Tachypnea may be 2/2 to splinting and atalectasis in the setting of abdominal pain -incentive spirometry q1h #GI -lipase trending down, but patient's ssx continue to persist -consider further imaging to r/o necrosis/pseudocyst -GI following -Surgery following #ID -febrile to 101 -can be explained by atalectasis mentioned in above process -cannot rule out infectious process at this time. Dispo: -BP stable, no signs of impending respiratory failure; -no indication for ICU level of care at this time -reconsult as necessary Visit type - Emergency Visit Emergency Visit: Yes ED Registration Date: 06/23/19 Care time: The patient presented to the Emergency Department on the above date and was hospitalized for further evaluation of their emergent condition. - New Patient This patient is new to me today: Yes Date on this admission: 06/26/19 - Critical Care Critical Care patient: No ATTENDING PHYSICIAN STATEMENT I saw and evaluated the patient. I reviewed the resident's note and discussed the case with the resident. I agree with the resident's findings and plan as documented. SUBJECTIVE: OBJECTIVE: ASSESSMENT AND PLAN:
[2019-06-26 10:14] LABS: PLATELET ESTIMATE NORMAL
[2019-06-26] MEDS ORDERED: INDOMETHACIN 50 MG RECTAL SUPPOSITORY PR ONE ×2 (10:45→12:45)
[2019-06-26] MEDS ORDERED: MIDAZOLAM HCL 2 MG/2 ML SINGLE DOSE VIAL ONE (12:23)
--- NOTE | 2019-06-26 12:23 | PN ---
Progress Note, Physician History of Present Illness: still with pain imaging - Current Medication List Current Medications: Active Medications Hydromorphone HCl (Dilaudid Vial -) 2 mg IVPB Q4H PRN PRN Reason: PAIN LEVEL 6-10 Last Admin: 06/26/19 10:11 Dose: 2 mg Piperacillin Sod/Tazobactam (Sod 4.5 gm/ Dextrose) 100 mls @ 200 mls/hr IVPB Q8H-IV LULU; Protocol Last Admin: 06/26/19 09:04 Dose: 200 mls/hr Lactated Ringer's (Lactated Ringers Solution) 1,000 mls @ 175 mls/hr IV ASDIR LULU Last Admin: 06/26/19 06:20 Dose: 175 mls/hr Ondansetron HCl (Zofran Injection) 4 mg IVPUSH Q4H PRN PRN Reason: NAUSEA AND/OR VOMITING Last Admin: 06/26/19 08:54 Dose: 4 mg - Objective Vital Signs: Vital Signs Temperature 99.0 F 06/26/19 08:26 Pulse Rate 120 H 06/26/19 08:26 Respiratory Rate 21 H 06/26/19 08:26 Blood Pressure 153/92 06/26/19 08:26 O2 Sat by Pulse Oximetry (%) 98 06/26/19 09:00 Constitutional: Yes: Calm, Mild Distress, Obese Cardiovascular: Yes: Regular Rate and Rhythm Respiratory: Yes: Regular, CTA Bilaterally Gastrointestinal: Yes: Soft, Tenderness, Other (absent bowel sounds) Musculoskeletal: Yes: WNL Extremities: Yes: WNL Neurological: Yes: Alert, Oriented Psychiatric: Yes: Alert, Oriented Labs: CBC, BMP 06/26/19 06:45 06/26/19 06:45 INR, PTT INR 1.55 (0.83-1.09) H 06/26/19 06:45 Assessment/Plan 23 year old woman with a history of hidradenitis suppurativa, resection of bilateral axillary sweat glands 1. Acute pancreatitis 2. Acute cholecystitis 3. Possible choledocholithiasis 4 leukocytosis 5 etoh abuse 6 smoker plan continue current mgmt continue abx await for imaging studies result rest as per the team
[2019-06-26] MEDS ORDERED: fentaNYL CITRATE 250 MCG/5 ML VIAL ONE (12:50)
[2019-06-26] MEDS ORDERED: IOHEXOL 300 MG/ML INFUS..BTL IJ ONE (13:03)
--- NOTE | 2019-06-26 13:58 | PN ---
Progress Note (short form) - Note Progress Note: GI Procedure NOte: Please see ERCP note. After an infromed consent was obtain that included informing Cindy of mary potential for such complicatins as perforation, hemorrhage and multiorgan failure associated with ERCP induced pancreatitis the ERCP was performed. The patient was palpably febrile prior to the procedure and a temdot noted at least 100. Three stones fragments were extracted from the distal CBD. NO residual stones or fragments were seen on retrograde cholangiography. Brisk RL hydration will be ordered. Indocin suppository was given prior to the procedure. The findings have been discussed with the patient. Will ultimately need cholecystectomy.
[2019-06-26] MEDS ORDERED: LACTATED RINGERS SOLUTION 1,000 ML/1,000 ML INFUS.BAG IV SCH ×2 (14:00→20:00)
--- NOTE | 2019-06-26 17:01 | PN ---
Teaching Attending Note Name of Resident: Reba Yee ATTENDING PHYSICIAN STATEMENT I saw and evaluated the patient. I reviewed the resident's note and discussed the case with the resident. I agree with the resident's findings and plan as documented. SUBJECTIVE: Patient had abdominal pain this morning. Overnight and this morning she was tachycardic and tachypneic. Had temp 101.0 last night. Zosyn was increased to 4.5g. OBJECTIVE: Vital Signs Period Temp Pulse Resp BP Sys/Lewis Pulse Ox Last 24 Hr 98.5 F-101.0 F 112-144 19-38 128-160/65-92 95-98 GENERAL: The patient is awake, alert, and fully oriented, in moderate respiratory distress. LUNGS: Breath sounds equal, clear to auscultation bilaterally, no wheezes, no crackles, no accessory muscle use. HEART: Regular rhythm, tachycardic, S1, S2 without murmur, rub or gallop. ABDOMEN: Obese, soft, (+) epigastric tenderness, nondistended, normoactive bowel sounds, no guarding, no rebound, no hepatosplenomegaly, no masses. EXTREMITIES: 2+ pulses, warm, well-perfused, no edema. Laboratory Results - last 24 hr 06/26/19 06/26/19 06/26/19 06:30 06:45 06:45 WBC 22.4 H RBC 4.72 Hgb 11.2 Hct 34.8 MCV 73.7 L MCH 23.6 L MCHC 32.1 RDW 16.0 H Plt Count 272 MPV 7.5 Absolute Neuts (auto) 20.5 H Neutrophils % 91.7 H Neutrophils % (Manual) 87.9 H Band Neutrophils % 3.0 Lymphocytes % 4.4 L Lymphocytes % (Manual) 6.1 L D Monocytes % 3.8 Monocytes % (Manual) 1 L D Eosinophils % 0.0 Eosinophils % (Manual) 0.0 Basophils % 0.1 D Basophils % (Manual) 0.0 Myelocytes % (Man) 1 D Promyelocytes % (Man) 0 Blast Cells % (Manual) 0 Nucleated RBC % 0 Metamyelocytes 0 Platelet Estimate Normal PT with INR INR Anticoagulation Therapy Cancelled Puncture Site Cancelled Patient Temperature Cancelled ABG pH Cancelled ABG pCO2 at Pt Temp Cancelled ABG pO2 at Pt Temp Cancelled ABG HCO3 Cancelled ABG O2 Sat (Measured) Cancelled ABG O2 Content Cancelled ABG Base Excess Cancelled Emery Test Cancelled O2 Delivery Device Cancelled Oxygen Flow Rate Cancelled Vent Mode Cancelled Vent Rate Cancelled Mechanical Rate Cancelled PEEP Cancelled Pressure Support Vent Cancelled Sodium 136 Potassium 3.6 Chloride 103 Carbon Dioxide 24 Anion Gap 8 BUN 7.5 Creatinine 0.6 Est GFR (CKD-EPI)AfAm 146.83 Est GFR (CKD-EPI)NonAf 126.68 Random Glucose 147 H Lactic Acid Calcium 7.9 L Total Bilirubin 1.9 H Direct Bilirubin 1.1 H AST 33 ALT 134 H Alkaline Phosphatase 122 H C-Reactive Protein 31.7 H Total Protein 5.9 L Albumin 2.5 L Total Amylase 186 H Lipase 344 06/26/19 06/26/19 06/26/19 06:45 06:45 07:19 WBC RBC Hgb Hct MCV MCH MCHC RDW Plt Count MPV Absolute Neuts (auto) Neutrophils % Neutrophils % (Manual) Band Neutrophils % Lymphocytes % Lymphocytes % (Manual) Monocytes % Monocytes % (Manual) Eosinophils % Eosinophils % (Manual) Basophils % Basophils % (Manual) Myelocytes % (Man) Promyelocytes % (Man) Blast Cells % (Manual) Nucleated RBC % Metamyelocytes Platelet Estimate PT with INR 18.40 H INR 1.55 H Anticoagulation Therapy Puncture Site Patient Temperature ABG pH ABG pCO2 at Pt Temp ABG pO2 at Pt Temp ABG HCO3 ABG O2 Sat (Measured) ABG O2 Content ABG Base Excess Emery Test O2 Delivery Device Oxygen Flow Rate Vent Mode Vent Rate Mechanical Rate PEEP Pressure Support Vent Sodium Potassium Chloride Carbon Dioxide Anion Gap BUN Creatinine Est GFR (CKD-EPI)AfAm Est GFR (CKD-EPI)NonAf Random Glucose Lactic Acid 1.1 Calcium Total Bilirubin 2.2 H Direct Bilirubin 1.1 H AST 31 ALT 135 H Alkaline Phosphatase 116 C-Reactive Protein Total Protein 5.9 L Albumin 2.4 L Total Amylase Lipase 06/26/19 09:05 WBC RBC Hgb Hct MCV MCH MCHC RDW Plt Count MPV Absolute Neuts (auto) Neutrophils % Neutrophils % (Manual) Band Neutrophils % Lymphocytes % Lymphocytes % (Manual) Monocytes % Monocytes % (Manual) Eosinophils % Eosinophils % (Manual) Basophils % Basophils % (Manual) Myelocytes % (Man) Promyelocytes % (Man) Blast Cells % (Manual) Nucleated RBC % Metamyelocytes Platelet Estimate PT with INR INR Anticoagulation Therapy No Result Required. Puncture Site No Result Required. Patient Temperature ABG pH 7.47 H ABG pCO2 at Pt Temp 34.8 L ABG pO2 at Pt Temp 88.1 ABG HCO3 25.1 ABG O2 Sat (Measured) 96.9 ABG O2 Content 15.0 ABG Base Excess 2.1 H Emery Test No Result Required. O2 Delivery Device No Result Required. Oxygen Flow Rate No Result Required. Vent Mode No Result Required. Vent Rate No Result Required. Mechanical Rate No Result Required. PEEP Pressure Support Vent No Result Required. Sodium Potassium Chloride Carbon Dioxide Anion Gap BUN Creatinine Est GFR (CKD-EPI)AfAm Est GFR (CKD-EPI)NonAf Random Glucose Lactic Acid Calcium Total Bilirubin Direct Bilirubin AST ALT Alkaline Phosphatase C-Reactive Protein Total Protein Albumin Total Amylase Lipase Current Medications Generic Name Dose Route Start Last Admin Trade Name Freq PRN Reason Stop Dose Admin Hydromorphone HCl 2 mg 06/24/19 10:42 06/26/19 15:26 Dilaudid Vial - IVPB 2 mg Q4H PRN Administration PAIN LEVEL 6-10 Piperacillin Sod/Tazobactam 100 mls @ 200 mls/hr 06/25/19 18:00 06/26/19 09: 04 Sod 4.5 gm/ Dextrose IVPB 200 mls/hr Q8H-IV LULU Administration Protocol Lactated Ringer's 1,000 ml in 1,000 mls @ 250 mls/hr 06/26/19 14:00 Lactated Ringers Solution IV 06/26/19 20:00 ASDIR LULU Lactated Ringer's 1,000 ml in 1,000 mls @ 200 mls/hr 06/26/19 20:00 Lactated Ringers Solution IV 06/27/19 04:00 ASDIR LULU Lactated Ringer's 1,000 ml in 1,000 mls @ 175 mls/hr 06/27/19 04:00 Lactated Ringers Solution IV 06/27/19 12:00 ASDIR LULU Lactated Ringer's 1,000 ml in 1,000 mls @ 150 mls/hr 06/27/19 12:00 Lactated Ringers Solution IV ASDIR LULU Ondansetron HCl 4 mg 06/24/19 10:44 06/26/19 08:54 Zofran Injection IVPUSH 4 mg Q4H PRN Administration NAUSEA AND/OR VOMITING ASSESSMENT AND PLAN: This is a 23 year old woman with a history of hidradenitis suppurativa, resection of bilateral axillary sweat glands, alcohol abuse who presented to the ED with abdominal pain. 1. Sepsis secondary to acute gallstone pancreatitis with choledocholithiasis - CTAP shows diffuse pancreatic inflammation and peripancreatic fluid c/w pancreatitis, no abscess or pseudocyst - RUQ US shows cholelithiasis, minimal to mild diffuse gallbladder wall edema , no biliary ductal dilatation, hepatic steatosis, acute pancreatitis - Maintain NPO - Continue IV fluid - Continue Zosyn - Continue Dilaudid as needed for pain, Zofran as needed for nausea - AST, ALT, alk phos, improving, total/direct bili increased today - Patient could not tolerate MRCP - ERCP done today and three stones removed from distal CBD - Plan for cholecystectomy 2. History of alcohol abuse - States she quit 2 years ago, but had a couple of drinks the night before her symptoms started 3. Morbid obesity with BMI 45.7
[2019-06-27] MEDS ORDERED: PT OWN MED DRAWER 7, Y5N ONE (02:03)
[2019-06-27] MEDS ORDERED: DEXTROSE 5%-WATER 100 ML IVPB ONE ×4 (02:04→22:45)
[2019-06-27] MEDS ORDERED: PIPERACILLIN/TAZOBACTAM 4.5 GM VIAL IVPB ONE ×4 (02:04→22:45)
[2019-06-27] MEDS: PIPERACILLIN/TAZOB 4.5 GM 4.5 GM in DEXTROSE 5%-WATER 100 ML IVPB SCH ×3 (02:25→17:56)
[2019-06-27] MEDS ORDERED: LACTATED RINGERS SOLUTION 1,000 ML/1,000 ML INFUS.BAG IV SCH (04:00)
[2019-06-27] MEDS: HYDROmorphone HCl 2 MG/ML VIAL IVPB PRN ×4 (05:51→22:55)
[2019-06-27 07:10] LABS: BASO % 0.1 % (0-2.0); EOS % 0.1 % (0-4.5); HEMATOCRIT 30.1 % (32.4-45.2); HEMOGLOBIN 9.5 GM/dL (10.7-15.3); MCH 23.4 pg (25.7-33.7); MCHC 31.5 g/dl (32.0-36.0); MEAN CELL VOLUME 74.4 fl (80-96); MEAN PLT VOLUME 7.4 fl (7.5-11.1); MONO % 3.5 % (3.8-10.2); NEUT % 90.3 % (42.8-82.8); PLATELET COUNT 238 K/MM3 (134-434); RBC 4.04 M/mm3 (3.60-5.2); RDW 15.5 % (11.6-15.6); WHITE BLOOD COUNT 15.4 K/mm3 (4.0-10.0)
[2019-06-27 08:03] LABS: ALBUMIN 2.2 g/dl (3.4-5.0); BILIRUBIN,DIRECT 0.6 mg/dL (0.0-0.2); BILIRUBIN,TOTAL 1.1 mg/dL (0.2-1); BLOOD UREA NITROGEN 11.1 mg/dL (7-18); CALCIUM 8.2 mg/dL (8.5-10.1); CREATININE 0.6 mg/dL (0.55-1.3); POTASSIUM 3.5 mmol/L (3.5-5.1); TOT PROT 5.7 g/dl (6.4-8.2)
--- NOTE | 2019-06-27 09:45 | PN ---
Progress Note (short form) - Note Progress Note: SURGERY 23yo F h/o gallstone pancreatitis s/p ERCP and extraction of 3 stones yesterday. Pt states that her abd pain is mildly improved although still complains of epigastric pain and some mild nausea with drinking. Pt denies fever, chills, chest pain, sob. Last Vital Signs Temp Pulse Resp BP Pulse Ox 98.3 F 117 H 20 123/59 L 99 06/27/19 05:59 06/26/19 15:17 06/27/19 05:59 06/27/19 05:59 06/26/19 21:00 CBC, BMP 06/27/19 06:30 06/27/19 06:30 PE: Gen: A&O X3 Resp: breathing comfortably Abd: soft, nondistended, mild epigastric and RUQ tenderness. Ext: no edema Problem List - Problems (1) Pancreatitis Assessment/Plan: Plan -pt wbc and LFTs appear to be trending down, if pt continues to improve, will consider lap cholecystectomy on Thursday 06/29 -had long discussion with pt about risks and benefits of the surgery and all questions were answered. -continue IVF, abx. Consider back to NPO if nausea continues, would not advise giving anymore than clears a this time. -will follow. Code(s): K85.90 - ACUTE PANCREATITIS WITHOUT NECROSIS OR INFECTION, UNSP
[2019-06-27] MEDS: ONDANSETRON 4 MG/2 ML VIAL IVPUSH PRN (10:16)
[2019-06-27] MEDS: LACTATED RINGERS SOLUTION 1,000 ML/1,000 ML INFUS.BAG IV SCH ×3 (10:16→17:56)
--- NOTE | 2019-06-27 11:30 | PN ---
Progress Note, Physician History of Present Illness: patient feeling better gi note noted - Current Medication List Current Medications: Active Medications Hydromorphone HCl (Dilaudid Vial -) 2 mg IVPB Q4H PRN PRN Reason: PAIN LEVEL 6-10 Last Admin: 06/27/19 05:51 Dose: 2 mg Piperacillin Sod/Tazobactam (Sod 4.5 gm/ Dextrose) 100 mls @ 200 mls/hr IVPB Q8H-IV LULU; Protocol Last Admin: 06/27/19 10:15 Dose: 200 mls/hr Lactated Ringer's (Lactated Ringers Solution) 1,000 ml in 1,000 mls @ 175 mls/ hr IV ASDIR LULU Stop: 06/27/19 12:00 Last Admin: 06/27/19 04:24 Dose: 175 mls/hr Lactated Ringer's (Lactated Ringers Solution) 1,000 ml in 1,000 mls @ 150 mls/ hr IV ASDIR LULU Last Admin: 06/27/19 10:16 Dose: 150 mls/hr Ondansetron HCl (Zofran Injection) 4 mg IVPUSH Q4H PRN PRN Reason: NAUSEA AND/OR VOMITING Last Admin: 06/27/19 10:16 Dose: 4 mg - Objective Vital Signs: Vital Signs Temperature 97.7 F 06/27/19 10:37 Pulse Rate 73 06/27/19 10:37 Respiratory Rate 19 06/27/19 10:37 Blood Pressure 134/77 06/27/19 10:37 O2 Sat by Pulse Oximetry (%) 99 06/27/19 09:00 Constitutional: Yes: No Distress, Calm, Obese Cardiovascular: Yes: Regular Rate and Rhythm Respiratory: Yes: Regular, CTA Bilaterally Gastrointestinal: Yes: Normal Bowel Sounds, Soft Musculoskeletal: Yes: WNL Extremities: Yes: WNL Neurological: Yes: Alert, Oriented Psychiatric: Yes: Alert, Oriented Labs: CBC, BMP 06/27/19 06:30 06/27/19 06:30 INR, PTT INR 1.55 (0.83-1.09) H 06/26/19 06:45 Assessment/Plan 23 year old woman with a history of hidradenitis suppurativa, resection of bilateral axillary sweat glands 1. Acute pancreatitis 2. Acute cholecystitis 3. Possible choledocholithiasis 4 leukocytosis 5 etoh abuse 6 smoker plan continue current mgmt continue abx final plan will need surgery
[2019-06-27 17:08] LABS: HEMATOCRIT 31.1 % (32.4-45.2); HEMOGLOBIN 9.8 GM/dL (10.7-15.3); MCH 23.4 pg (25.7-33.7); MCHC 31.6 g/dl (32.0-36.0); MEAN PLT VOLUME 7.7 fl (7.5-11.1); PLATELET COUNT 290 K/MM3 (134-434); RDW 15.7 % (11.6-15.6); WHITE BLOOD COUNT 14.6 K/mm3 (4.0-10.0)
--- NOTE | 2019-06-27 17:16 | PN ---
Teaching Attending Note Name of Resident: Reba Yee ATTENDING PHYSICIAN STATEMENT I saw and evaluated the patient. I reviewed the resident's note and discussed the case with the resident. I agree with the resident's findings and plan as documented. SUBJECTIVE: No fever or chills. tried low fat diet and had worsening abd pain. had nausea but no vomiting , No Bms. OBJECTIVE: NAD CV: RRR Lungs: bibasilar crackles Abd: obese, soft, ND, minimal TTP in epigastric area. no rebound Ext : No edema or erythema ASSESSMENT AND PLAN: 23 y/o lady with h/o alcohol use, and hydradenitis suppurativa who presented with abd pain and was found to have acute pancreatitis 1- Acute pancreatitis 2- Sepsis 3- Ascending cholangitis , s/p ERCP and removal of stones 4- Microcytic anemia plan: - cont IVF - did not tolerate low fat diet . will downgrade to full liquid - cont zosyn - for CCY on Tuesday - follow LFTs and CBC - no chemical DVT px for now
--- NOTE | 2019-06-27 18:34 | PN.GI ---
GI Progress Note Subjective: Pt seen/examined at bedside, feeling better overall s/p ERCP yesterday with stone extraction. Had burger and fries for lunch with subsequent upper abdominal pain and nausea, now resolved. Had small bm. Denies fever/chills. - Objective Vital Signs: Vital Signs Temperature 97.7 F 06/27/19 10:37 Pulse Rate 73 06/27/19 10:37 Respiratory Rate 06/27/19 10:37 Blood Pressure 134/77 06/27/19 10:37 O2 Sat by Pulse Oximetry (%) 99 06/27/19 09:00 Constitutional: Well Nourished, No Distress, Calm Cardiovascular: Yes: WNL, Regular Rate and Rhythm Respiratory: Yes: WNL, Regular, CTA Bilaterally ...Palpate: Yes: Other (Abd soft, mildly tender on deeper palpation in RUQ/ epigastrium, no rebound, guarding or rigidity) Labs: CBC, BMP 06/27/19 16:20 06/27/19 06:30 INR, PTT INR 1.55 (0.83-1.09) H 06/26/19 06:45 Problem List - Problems (1) Gallstone pancreatitis Assessment/Plan: s/p ercp with stone extraction yesterday. Had increased transient abdominal pain after burger and fries today. LFTs improving. -Advised gradual increase in diet (low fat as tolerated), now on full liquids -Monitor LFT trend to ensure normalization -Continue IV antibiotics and monitor wcc -Further recommendations per surgery regarding timing of cholecystectomy, possibly Thursday 06/29 Code(s): K85.10 - BILIARY ACUTE PANCREATITIS WITHOUT NECROSIS OR INFECTION
--- NOTE | 2019-06-27 19:19 | PN ---
Physical Exam: SUBJECTIVE: Patient seen and examined at bedside. pt states her abdominal pain is improved although she still gets nauseas when trial of apple juice or jello. OBJECTIVE: Vital Signs Period Temp Pulse Resp BP Sys/Lewis Pulse Ox Last 24 Hr 97.7 F-98.6 F 73 19-20 123-134/59-77 99-99 GENERAL: The patient is awake, alert, and fully oriented, in no acute distress. obese LUNGS: Breath sounds equal, clear to auscultation bilaterally, no wheezes, no crackles, no accessory muscle use. HEART: Regular rate and rhythm, S1, S2 without murmur, rub or gallop. ABDOMEN: Soft, mid epigastric TTP, nondistended, normoactive bowel sounds, no guarding EXTREMITIES: 2+ pulses, warm, well-perfused, no edema. NEUROLOGICAL: Cranial nerves II through XII grossly intact. Normal speech, gait not observed. PSYCH: Normal mood, normal affect. SKIN: Warm, dry, normal turgor, no rashes or lesions noted Laboratory Results - last 24 hr 06/27/19 06/27/19 06/27/19 06:30 06:30 16:20 WBC 15.4 H 14.6 H RBC 4.04 4.20 Hgb 9.5 L 9.8 L Hct 30.1 L 31.1 L MCV 74.4 L 74.0 L MCH 23.4 L 23.4 L MCHC 31.5 L 31.6 L RDW 15.5 15.7 H Plt Count 238 290 D MPV 7.4 L 7.7 Absolute Neuts (auto) 13.9 H Neutrophils % 90.3 H Lymphocytes % 6.0 L D Monocytes % 3.5 L Eosinophils % 0.1 D Basophils % 0.1 Nucleated RBC % 0 Sodium 140 Potassium 3.5 Chloride 107 Carbon Dioxide 28 Anion Gap 6 L BUN 11.1 Creatinine 0.6 Est GFR (CKD-EPI)AfAm 146.83 Est GFR (CKD-EPI)NonAf 126.68 Random Glucose 131 H Calcium 8.2 L Total Bilirubin 1.1 H Direct Bilirubin 0.6 H AST 22 ALT 94 H Alkaline Phosphatase 101 C-Reactive Protein 25.6 H Total Protein 5.7 L Albumin 2.2 L Total Amylase 77 Lipase 96 Current Medications Hydromorphone HCl (Dilaudid Vial -) 2 mg IVPB Q4H PRN PRN Reason: PAIN LEVEL 6-10 Last Admin: 06/27/19 18:47 Dose: 2 mg Piperacillin Sod/Tazobactam (Sod 4.5 gm/ Dextrose) 100 mls @ 200 mls/hr IVPB Q8H-IV LULU; Protocol Last Admin: 06/27/19 17:56 Dose: 200 mls/hr Lactated Ringer's (Lactated Ringers Solution) 1,000 ml in 1,000 mls @ 150 mls/ hr IV ASDIR LULU Last Admin: 06/27/19 17:56 Dose: 150 mls/hr Ondansetron HCl (Zofran Injection) 4 mg IVPUSH Q4H PRN PRN Reason: NAUSEA AND/OR VOMITING Last Admin: 06/27/19 10:16 Dose: 4 mg ASSESSMENT/PLAN: 23 yo F PMH of hiradrenitis suppurtica, hx of alcohol abuse presented to ED for abdominal pain. Pt is admitted for acute pancreatitis. Sepsis 2/2 Acute pancreatitis 2/2 choledocolithiasis - CTA/P reviewed: diffuse pancreatic inflammation and peripancreatic fluid c/w pancreatitis, no abscess or pseudocyst -RUQ US shows cholelithiasis, minimal to mild diffuse gallbladder wall edema, no biliary ductal dilatation, hepatic steatosis, acute pancreatitis - tolerated clears, on full liquid diet. if pt does not tolerate will make back to NPO . -IVF, pain control with dilaudid, zofran for nausea - Continue Zosyn day 2 - TBili/ Dbili increased yesterday, today improved - ERCP 06/26, 3 stones removed from distal CBD - GI following ( Dr. Hernández) - plan for cholecystectomy once pancreatitis resolves, possibly Tuesday - Lipase 96, improved -leukocytosis downtrending Anemia -h/h stable - possible 2/2 IVF hydration -continue to monitor Morbid obesity -BMI 45.7 - counselled on diet and exercise Dispo: continue med/ surg Visit type - Emergency Visit Emergency Visit: No - New Patient This patient is new to me today: No - Critical Care Critical Care patient: No - Discharge Referral Referred to [facility] Med P.C.: No ATTENDING PHYSICIAN STATEMENT I saw and evaluated the patient. I reviewed the resident's note and discussed the case with the resident. I agree with the resident's findings and plan as documented. SUBJECTIVE: OBJECTIVE: ASSESSMENT AND PLAN:
[2019-06-28] MEDS: PIPERACILLIN/TAZOB 4.5 GM 4.5 GM in DEXTROSE 5%-WATER 100 ML IVPB SCH ×3 (01:30→17:30)
[2019-06-28] MEDS: LACTATED RINGERS SOLUTION 1,000 ML/1,000 ML INFUS.BAG IV SCH ×3 (01:42→22:51)
[2019-06-28] MEDS: HYDROmorphone HCl 2 MG/ML VIAL IVPB PRN ×3 (04:02→13:38)
[2019-06-28] MEDS ORDERED: ACETAMINOPHEN 325 MG TABLET (FP) PO ONE (04:06)
[2019-06-28 07:25] LABS: BASO % 0.3 % (0-2.0); EOS % 0.4 % (0-4.5); HEMOGLOBIN 9.5 GM/dL (10.7-15.3); MCH 23.8 pg (25.7-33.7); MCHC 32.7 g/dl (32.0-36.0); MEAN CELL VOLUME 72.9 fl (80-96); MEAN PLT VOLUME 7.3 fl (7.5-11.1); MONO % 4.9 % (3.8-10.2); NEUT % 83.4 % (42.8-82.8); PLATELET COUNT 302 K/MM3 (134-434); RBC 3.98 M/mm3 (3.60-5.2); RDW 15.8 % (11.6-15.6); WHITE BLOOD COUNT 12.5 K/mm3 (4.0-10.0)
[2019-06-28 08:11] LABS: ALBUMIN 2.2 g/dl (3.4-5.0); BILIRUBIN,TOTAL 0.8 mg/dL (0.2-1); BLOOD UREA NITROGEN 6.7 mg/dL (7-18); CALCIUM 7.7 mg/dL (8.5-10.1); CREATININE 0.6 mg/dL (0.55-1.3); MAGNESIUM 1.9 mg/dL (1.8-2.4); PHOSPHOROUS 2.5 mg/dL (2.5-4.9); POTASSIUM 3.3 mmol/L (3.5-5.1); TOT PROT 5.8 g/dl (6.4-8.2)
[2019-06-28] MEDS ORDERED: DEXTROSE 5%-WATER 100 ML IVPB ONE ×2 (09:08→17:28)
[2019-06-28] MEDS ORDERED: PIPERACILLIN/TAZOBACTAM 4.5 GM VIAL IVPB ONE ×2 (09:08→17:28)
--- NOTE | 2019-06-28 09:26 | PN ---
Progress Note, Physician History of Present Illness: patient feeling better gi note noted no appetite - Current Medication List Current Medications: Active Medications Hydromorphone HCl (Dilaudid Vial -) 2 mg IVPB Q4H PRN PRN Reason: PAIN LEVEL 6-10 Last Admin: 06/28/19 09:19 Dose: 2 mg Piperacillin Sod/Tazobactam (Sod 4.5 gm/ Dextrose) 100 mls @ 200 mls/hr IVPB Q8H-IV LULU; Protocol Last Admin: 06/28/19 01:30 Dose: 200 mls/hr Lactated Ringer's (Lactated Ringers Solution) 1,000 ml in 1,000 mls @ 150 mls/ hr IV ASDIR LULU Last Admin: 06/28/19 01:42 Dose: 150 mls/hr Ondansetron HCl (Zofran Injection) 4 mg IVPUSH Q4H PRN PRN Reason: NAUSEA AND/OR VOMITING Last Admin: 06/27/19 10:16 Dose: 4 mg - Objective Vital Signs: Vital Signs Temperature 99.2 F 06/28/19 08:57 Pulse Rate 123 H 06/28/19 08:57 Respiratory Rate 20 06/28/19 08:57 Blood Pressure 154/77 06/28/19 08:57 O2 Sat by Pulse Oximetry (%) 98 06/27/19 21:00 Constitutional: Yes: Calm, Mild Distress Cardiovascular: Yes: S1, S2 Respiratory: Yes: Regular, CTA Bilaterally Gastrointestinal: Yes: Normal Bowel Sounds, Soft Musculoskeletal: Yes: WNL Extremities: Yes: WNL Neurological: Yes: Alert, Oriented Psychiatric: Yes: Alert, Oriented Labs: CBC, BMP 06/28/19 06:40 06/28/19 06:40 INR, PTT INR 1.55 (0.83-1.09) H 06/26/19 06:45 Assessment/Plan 23 year old woman with a history of hidradenitis suppurativa, resection of bilateral axillary sweat glands 1. Acute pancreatitis 2. Acute cholecystitis 3. Possible choledocholithiasis 4 leukocytosis 5 etoh abuse 6 smoker plan continue current mgmt await for final plan
[2019-06-28 10:09] LABS: ANISOCYTOSIS 2+; MACROCYTOSIS 0; PLATELET ESTIMATE NORMAL
[2019-06-28] MEDS ORDERED: LACTATED RINGERS SOLUTION 1,000 ML/1,000 ML INFUS.BAG IV SCH (11:04)
[2019-06-28] MEDS ORDERED: POTASSIUM CHLORIDE ORAL LIQUID 20 MEQ/15 ML PO ONE (11:15)
--- NOTE | 2019-06-28 15:55 | PN ---
Teaching Attending Note Name of Resident: Reba Yee ATTENDING PHYSICIAN STATEMENT I saw and evaluated the patient. I reviewed the resident's note and discussed the case with the resident. I agree with the resident's findings and plan as documented. SUBJECTIVE: seen at 11 am Had a fever last night. no N/V. abd pain is stable. did not eat breakfast today. + non productive cough no diarrhea. had BM this am OBJECTIVE: NAD CV: RRR Lungs: no crackles but decreased breath sounds at bases Abd: obese, soft, ND, TTP in epigastric area. no rebound Ext: No edema or erythema ASSESSMENT AND PLAN: 23 y/o lady with h/o alcohol use, and hydradenitis suppurativa who presented with abd pain and was found to have acute pancreatitis 1- Acute pancreatitis 2- Sepsis 3- Ascending cholangitis , s/p ERCP and removal of stones 4-fever 5- microcytic anemia 7- morbid obesity plan: - Fever last night did not recur. monitor for further fevers . if needed can re- image with Ct scan - cont zosyn - CCY tomorrow - decrease rate of IVF as she started with cough - cont full liquid diet - NPO after MN for Sx - follow LFTS - iron studies reviewed. need to be repeated as out pt. further anemia w/u as out pt - check A1c due to elevated fasting sugars - no chemical DVT px for now ( day 2 after ERCP)
[2019-06-28] MEDS ORDERED: oxyCODONE HCL 5 MG TABLET PO PRN (15:58)
[2019-06-28] MEDS ORDERED: DOCUSATE SODIUM 100 MG CAPSULE (FP) PO PRN (15:58)
[2019-06-28] MEDS ORDERED: ACETAMINOPHEN 1000 MG/100 ML VIAL (NON FORMULARY) IVPB ONE (18:43)
[2019-06-28] MEDS: oxyCODONE HCL 5 MG TABLET PO PRN ×2 (19:03→22:52)
--- NOTE | 2019-06-28 19:13 | PN ---
Physical Exam: SUBJECTIVE: Patient seen and examined at bedside. pt states at she is feeling better but overnight when she spiked the fever she was also nauseas and short of breath. OBJECTIVE: Vital Signs Period Temp Pulse Resp BP Sys/Lewis Pulse Ox Last 24 Hr 98.4 F-102 F 91-123 18-20 123-154/77-94 96-98 GENERAL: The patient is awake, alert, and fully oriented, in no acute distress. HEAD: Normal with no signs of trauma. LUNGS: Breath sounds equal, clear to auscultation bilaterally, no wheezes, no crackles, no accessory muscle use. HEART: Regular rate and rhythm, S1, S2 without murmur, rub or gallop. ABDOMEN: Soft, tender to palpation of RUQ, epigastric; nondistended, normoactive bowel sounds, no guarding EXTREMITIES: 2+ pulses, warm, well-perfused, no edema. SKIN: Warm, dry, normal turgor, no rashes or lesions noted Laboratory Results - last 24 hr 06/28/19 06/28/19 06:40 06:40 WBC 12.5 H RBC 3.98 Hgb 9.5 L Hct 29.0 L MCV 72.9 L MCH 23.8 L MCHC 32.7 RDW 15.8 H Plt Count 302 MPV 7.3 L Absolute Neuts (auto) 10.5 H Neutrophils % 83.4 H Neutrophils % (Manual) 79.8 Band Neutrophils % 2.0 Lymphocytes % 11.0 D Lymphocytes % (Manual) 15.2 D Monocytes % 4.9 Monocytes % (Manual) 3 L D Eosinophils % 0.4 D Eosinophils % (Manual) 0.0 Basophils % 0.3 Basophils % (Manual) 0.0 Myelocytes % (Man) 0 D Promyelocytes % (Man) 0 Blast Cells % (Manual) 0 Nucleated RBC % 0 Metamyelocytes 0 Hypochromia 1+ Platelet Estimate Normal Polychromasia 1+ Poikilocytosis 0 Anisocytosis 2+ Microcytosis 2+ Macrocytosis 0 Sodium 138 Potassium 3.3 L Chloride 106 Carbon Dioxide 26 Anion Gap 5 L BUN 6.7 L Creatinine 0.6 Est GFR (CKD-EPI)AfAm 146.83 Est GFR (CKD-EPI)NonAf 126.68 Random Glucose 123 H Calcium 7.7 L Phosphorus 2.5 Magnesium 1.9 Iron 14 L TIBC 257 Iron Saturation 5 L Unsaturated IBC 243 Ferritin 176.8 Total Bilirubin 0.8 AST 29 ALT 79 H Alkaline Phosphatase 102 Total Protein 5.8 L Albumin 2.2 L Current Medications Docusate Sodium (Colace -) 100 mg PO Q12H PRN PRN Reason: CONSTIPATION Piperacillin Sod/Tazobactam (Sod 4.5 gm/ Dextrose) 100 mls @ 200 mls/hr IVPB Q8H-IV LULU; Protocol Last Admin: 06/28/19 17:30 Dose: 200 mls/hr Lactated Ringer's (Lactated Ringers Solution) 1,000 ml in 1,000 mls @ 100 mls/ hr IV ASDIR LULU Last Admin: 06/28/19 11:20 Dose: 100 mls/hr Ondansetron HCl (Zofran Injection) 4 mg IVPUSH Q4H PRN PRN Reason: NAUSEA AND/OR VOMITING Last Admin: 06/27/19 10:16 Dose: 4 mg Oxycodone HCl (Roxicodone -) 5 mg PO Q4H PRN PRN Reason: PAIN LEVEL 1-5 Oxycodone HCl (Roxicodone -) 10 mg PO Q4H PRN PRN Reason: PAIN LEVEL 6-10 Last Admin: 06/28/19 19:03 Dose: 10 mg ASSESSMENT/PLAN: 23 yo F PMH of hiradrenitis suppurtica, hx of alcohol abuse presented to ED for abdominal pain. Pt is admitted for acute pancreatitis. Sepsis 2/2 Acute pancreatitis 2/2 choledocolithiasis - CTA/P reviewed: diffuse pancreatic inflammation and peripancreatic fluid c/w pancreatitis, no abscess or pseudocyst -RUQ US shows cholelithiasis, minimal to mild diffuse gallbladder wall edema, no biliary ductal dilatation, hepatic steatosis, acute pancreatitis - tolerated clears, on full liquid diet. if pt does not tolerate will make back to NPO . NPO after midnight for cholecystectomy - febrile last night, no other febrile events. continue to monitor. will consider rpt ct if fever spikes again to r/o necrotic pancreas -IVF ( rate decreased) , pain control with dilaudid, zofran for nausea - Continue Zosyn day 3 - TBili/ Dbili increased yesterday, today improved - ERCP 06/26, 3 stones removed from distal CBD - GI following ( Dr. Hernández) - plan for cholecystectomy once pancreatitis resolves, tomorrow - Lipase 96, improved -leukocytosis downtrending Anemia -h/h stable - possible 2/2 IVF hydration -continue to monitor Morbid obesity -BMI 45.7 - counselled on diet and exercise DVT ppx: early ambulation, hold chemical ppx 2/2 to surgical procedure in am Dispo: continue med/ surg Visit type - Emergency Visit Emergency Visit: No - New Patient This patient is new to me today: No - Critical Care Critical Care patient: No - Discharge Referral Referred to [facility] Med P.C.: No ATTENDING PHYSICIAN STATEMENT I saw and evaluated the patient. I reviewed the resident's note and discussed the case with the resident. I agree with the resident's findings and plan as documented. SUBJECTIVE: OBJECTIVE: ASSESSMENT AND PLAN:
--- NOTE | 2019-06-28 20:01 | PN.GI ---
GI Progress Note Subjective: Had clear liquids for dinner. States still having same amount of pain and is nauseous. No vomiting 102 Fever reported from this evening - Objective Vital Signs: Vital Signs Temperature 102 F H 06/28/19 14:00 Pulse Rate 117 H 06/28/19 14:00 Respiratory Rate 20 06/28/19 14:00 Blood Pressure 147/94 06/28/19 14:00 O2 Sat by Pulse Oximetry (%) 96 06/28/19 09:00 Constitutional: Calm Eyes: No: Sclera Icterus Cardiovascular: Yes: Tachycardia Respiratory: Yes: Diminished (at bases bilaterally with poor insp effort) Gastrointestinal Inspection: No: Distention ...Auscultate: Yes: Normoactive Bowel Sounds ...Palpate: Yes: Soft, Tenderness (TTP RUQ/Epigastrium). No: Hepatomegaly, Splenomegaly ...Percussion: No: Tympanitic Neurological: Yes: Alert Labs: CBC, BMP 06/28/19 06:40 06/28/19 06:40 INR, PTT INR 1.55 (0.83-1.09) H 06/26/19 06:45 Problem List - Problems (1) Gallstone pancreatitis Assessment/Plan: With cholangitis. S/P ERCP with improving liver chemistries and leukocytosis, however with persistent upper abdominal pain and nausea: Changed to NPO CT scan with contrast has already been ordered. Agree with repeat imaging given persistence of upper abdominal symptoms Increased IV fluids while NPO Surgery following On IV Abx per ID Code(s): K85.10 - BILIARY ACUTE PANCREATITIS WITHOUT NECROSIS OR INFECTION
[2019-06-28] MEDS: ONDANSETRON 4 MG/2 ML VIAL IVPUSH PRN (22:52)
[2019-06-29] MEDS ORDERED: BUPIVACAINE HCL/PF 0.5% (5 MG/ML) 30 ML VIAL IJ ONE
[2019-06-29] MEDS ORDERED: PIPERACILLIN/TAZOBACTAM 4.5 GM VIAL IVPB ONE ×3 (02:16→17:16)
[2019-06-29] MEDS ORDERED: DEXTROSE 5%-WATER 100 ML IVPB ONE ×3 (02:16→17:16)
[2019-06-29] MEDS: PIPERACILLIN/TAZOB 4.5 GM 4.5 GM in DEXTROSE 5%-WATER 100 ML IVPB SCH ×3 (02:33→17:23)
[2019-06-29] MEDS ORDERED: ACETAMINOPHEN 1000 MG/100 ML VIAL (NON FORMULARY) IVPB ONE (05:05)
[2019-06-29] MEDS: oxyCODONE HCL 5 MG TABLET PO PRN ×3 (05:16→20:50)
[2019-06-29] MEDS: LACTATED RINGERS SOLUTION 1,000 ML/1,000 ML INFUS.BAG IV SCH (06:25)
[2019-06-29] MEDS ORDERED: INSULIN (NOVOLOG) ASPART 100 UNITS/ML 10ML VIAL ONE (06:32)
[2019-06-29 07:06] LABS: HEMATOCRIT 29.3 % (32.4-45.2); HEMOGLOBIN 9.6 GM/dL (10.7-15.3); MCH 23.9 pg (25.7-33.7); MCHC 32.8 g/dl (32.0-36.0); MEAN CELL VOLUME 72.9 fl (80-96); MEAN PLT VOLUME 7.1 fl (7.5-11.1); PLATELET COUNT 300 K/MM3 (134-434); RBC 4.02 M/mm3 (3.60-5.2); RDW 15.5 % (11.6-15.6); WHITE BLOOD COUNT 15.6 K/mm3 (4.0-10.0)
[2019-06-29 07:22] LABS: INR 1.37 (0.83-1.09); PROTHROMBIN TIME (PATIENT) 16.2 SEC (9.7-13.0)
[2019-06-29 07:34] LABS: ALBUMIN 2.1 g/dl (3.4-5.0); BLOOD UREA NITROGEN 5.1 mg/dL (7-18); CALCIUM 8.1 mg/dL (8.5-10.1); CREATININE 0.5 mg/dL (0.55-1.3); PHOSPHOROUS 3.6 mg/dL (2.5-4.9); POTASSIUM 3.6 mmol/L (3.5-5.1); TOT PROT 5.8 g/dl (6.4-8.2)
--- NOTE | 2019-06-29 10:25 | PN.GI ---
GI Progress Note Subjective: States feeling hungry Abdominal pain improved CT scan performed revealed bilateral pleural effusions, improvement in the pancreatic inflammatory changes without evidence of necrosis Small BM yesterday - Objective Vital Signs: Vital Signs Temperature 98.5 F 06/29/19 09:30 Pulse Rate 116 H 06/29/19 09:30 Respiratory Rate 06/29/19 09:30 Blood Pressure 139/81 06/29/19 09:30 O2 Sat by Pulse Oximetry (%) 96 06/28/19 21:00 Constitutional: Calm Eyes: No: Sclera Icterus Cardiovascular: Yes: Tachycardia Respiratory: Yes: Diminished (at bases bilaterally with poor insp. effort) Gastrointestinal Inspection: No: Distention ...Auscultate: Yes: Normoactive Bowel Sounds ...Palpate: Yes: Soft, Tenderness (Much improved TTP mid/upper abdomen) ...Percussion: No: Tympanitic Labs: CBC, BMP 06/29/19 06:25 06/29/19 06:25 INR, PTT INR 1.37 (0.83-1.09) H 06/29/19 06:25 Problem List - Problems (1) Gallstone pancreatitis Assessment/Plan: Clinically improving Surgery following. Timing of cholecystectomy per surgery Advance diet if no plan for OR today On Abx per ID Encouraged ambulation Incentive spirometry Code(s): K85.10 - BILIARY ACUTE PANCREATITIS WITHOUT NECROSIS OR INFECTION
[2019-06-29] MEDS ORDERED: fentaNYL CITRATE 250 MCG/5 ML VIAL ONE (11:58)
[2019-06-29] MEDS ORDERED: LIDOCAINE HCL/PF 2% SDV 5ML VIAL ONE (11:58)
[2019-06-29] MEDS ORDERED: PROPOFOL 20 ML ONE ×2 (11:58)
[2019-06-29] MEDS ORDERED: ROCURONIUM BROMIDE 50 MG/5 ML SYRINGE ONE ×2 (11:58→12:56)
--- NOTE | 2019-06-29 12:21 | PN ---
Progress Note, Physician History of Present Illness: stable no new issues - Current Medication List Current Medications: Active Medications Docusate Sodium (Colace -) 100 mg PO Q12H PRN PRN Reason: CONSTIPATION Piperacillin Sod/Tazobactam (Sod 4.5 gm/ Dextrose) 100 mls @ 200 mls/hr IVPB Q8H-IV LULU; Protocol Last Admin: 06/29/19 10:29 Dose: 200 mls/hr Lactated Ringer's (Lactated Ringers Solution) 1,000 ml in 1,000 mls @ 150 mls/ hr IV ASDIR LULU Last Admin: 06/29/19 06:25 Dose: 150 mls/hr Oxycodone HCl (Roxicodone -) 5 mg PO Q4H PRN PRN Reason: PAIN LEVEL 1-5 Oxycodone HCl (Roxicodone -) 10 mg PO Q4H PRN PRN Reason: PAIN LEVEL 6-10 Last Admin: 06/29/19 05:16 Dose: 10 mg - Objective Vital Signs: Vital Signs Temperature 98.5 F 06/29/19 09:30 Pulse Rate 116 H 06/29/19 09:30 Respiratory Rate 06/29/19 09:30 Blood Pressure 139/81 06/29/19 09:30 O2 Sat by Pulse Oximetry (%) 96 06/28/19 21:00 Constitutional: Yes: No Distress, Calm, Obese Cardiovascular: Yes: S1, S2 Respiratory: Yes: Regular, CTA Bilaterally Gastrointestinal: Yes: Normal Bowel Sounds, Soft Musculoskeletal: Yes: WNL Extremities: Yes: WNL Neurological: Yes: Alert, Oriented Psychiatric: Yes: Alert, Oriented Labs: CBC, BMP 06/29/19 06:25 06/29/19 06:25 INR, PTT INR 1.37 (0.83-1.09) H 06/29/19 06:25 Assessment/Plan 23 year old woman with a history of hidradenitis suppurativa, resection of bilateral axillary sweat glands 1. Acute pancreatitis 2. Acute cholecystitis 3. Possible choledocholithiasis 4 leukocytosis 5 etoh abuse 6 smoker plan continue current mgmt await for final plan
[2019-06-29] MEDS ORDERED: ONDANSETRON 4 MG/2 ML VIAL IVPUSH PRN ×2 (12:47→16:29)
[2019-06-29] MEDS ORDERED: IBUPROFEN 800 MG/8 ML IJ IVPB PRN ×2 (12:47→16:29)
[2019-06-29] MEDS ORDERED: DEXAMETHASONE SOD PHOSPHATE 4 MG/1 ML VIAL ONE (12:58)
[2019-06-29] MEDS ORDERED: GLYCOPYRROLATE 0.2 MG/1 ML VIAL ONE ×2 (13:39)
[2019-06-29] MEDS ORDERED: NEOSTIGMINE METHYLSULFATE 0.5 MG/ML - 10 ML MDV ONE (13:39)
[2019-06-29] MEDS ORDERED: KETOROLAC TROMETHAMINE 30 MG/1 ML VIAL ONE (13:49)
--- NOTE | 2019-06-29 14:32 | PN ---
Physical Exam: SUBJECTIVE: Patient seen and examined at bedside, this morning she was stating that she is feeling nauseas and her abdominal pain is worse than it was yesterday. after surgery was seen and had no complaints, no CP or SOB. OBJECTIVE: Vital Signs Period Temp Pulse Resp BP Sys/Lewis Pulse Ox Last 24 Hr 98.5 F-99.7 F 115-123 20-20 139-157/81-96 96 GENERAL: The patient is awake, alert, and fully oriented, in no acute distress. HEAD: Normal with no signs of trauma. LUNGS: Breath sounds equal, clear to auscultation bilaterally, no wheezes, no crackles, no accessory muscle use. HEART: Regular rate and rhythm, S1, S2 without murmur, rub or gallop. ABDOMEN: Soft, tender to palpation of RUQ, epigastric; nondistended, normoactive bowel sounds, no guarding EXTREMITIES: 2+ pulses, warm, well-perfused, no edema. SKIN: Warm, dry, normal turgor, no rashes or lesions noted Laboratory Last Values WBC 15.6 K/mm3 (4.0-10.0) H 06/29/19 06:25 RBC 4.02 M/mm3 (3.60-5.2) 06/29/19 06:25 Hgb 9.6 GM/dL (10.7-15.3) L 06/29/19 06:25 Hct 29.3 % (32.4-45.2) L 06/29/19 06:25 MCV 72.9 fl (80-96) L 06/29/19 06:25 MCH 23.9 pg (25.7-33.7) L 06/29/19 06:25 MCHC 32.8 g/dl (32.0-36.0) 06/29/19 06:25 RDW 15.5 % (11.6-15.6) 06/29/19 06:25 Plt Count 300 K/MM3 (134-434) 06/29/19 06:25 MPV 7.1 fl (7.5-11.1) L 06/29/19 06:25 Absolute Neuts (auto) 10.5 K/mm3 (1.5-8.0) H 06/28/19 06:40 Neutrophils % 83.4 % (42.8-82.8) H 06/28/19 06:40 Neutrophils % (Manual) 79.8 % (42.8-82.8) 06/28/19 06:40 Band Neutrophils % 2.0 % 06/28/19 06:40 Lymphocytes % 11.0 % (8-40) D 06/28/19 06:40 Lymphocytes % (Manual) 15.2 % (8-40) D 06/28/19 06:40 Monocytes % 4.9 % (3.8-10.2) 06/28/19 06:40 Monocytes % (Manual) 3 % (3.8-10.2) L D 06/28/19 06:40 Eosinophils % 0.4 % (0-4.5) D 06/28/19 06:40 Eosinophils % (Manual) 0.0 % (0-4.5) 06/28/19 06:40 Basophils % 0.3 % (0-2.0) 06/28/19 06:40 Basophils % (Manual) 0.0 % (0-2.0) 06/28/19 06:40 Myelocytes % (Man) 0 % (0-2) D 06/28/19 06:40 Promyelocytes % (Man) 0 % (0-2) 06/28/19 06:40 Blast Cells % (Manual) 0 % (0-0) 06/28/19 06:40 Nucleated RBC % 0 % (0-0) 06/28/19 06:40 Metamyelocytes 0 % (0-2) 06/28/19 06:40 Hypochromia 1+ 06/28/19 06:40 Platelet Estimate Normal 06/28/19 06:40 Polychromasia 1+ 06/28/19 06:40 Poikilocytosis 0 06/28/19 06:40 Anisocytosis 2+ 06/28/19 06:40 Microcytosis 2+ 06/28/19 06:40 Macrocytosis 0 06/28/19 06:40 Sodium 140 mmol/L (136-145) 06/29/19 06:25 Potassium 3.6 mmol/L (3.5-5.1) 06/29/19 06:25 Chloride 106 mmol/L (98-107) 06/29/19 06:25 Carbon Dioxide 24 mmol/L (21-32) 06/29/19 06:25 Anion Gap 9 MMOL/L (8-16) 06/29/19 06:25 BUN 5.1 mg/dL (7-18) L 06/29/19 06:25 Creatinine 0.5 mg/dL (0.55-1.3) L 06/29/19 06:25 Est GFR (CKD-EPI)AfAm 155.90 06/29/19 06:25 Est GFR (CKD-EPI)NonAf 134.52 06/29/19 06:25 Random Glucose 131 mg/dL (74-106) H 06/29/19 06:25 Hemoglobin A1c % 5.3 % (4.2-6.3) 06/29/19 06:25 Lactic Acid 1.1 mmol/L (0.4-2.0) 06/26/19 07:19 Calcium 8.1 mg/dL (8.5-10.1) L 06/29/19 06:25 Phosphorus 3.6 mg/dL (2.5-4.9) 06/29/19 06:25 Magnesium 2.0 mg/dL (1.8-2.4) 06/29/19 06:25 Iron 14 ug/dL (50-175) L 06/28/19 06:40 TIBC 257 ug/dL (250-450) 06/28/19 06:40 Iron Saturation 5 % (17.5-39) L 06/28/19 06:40 Unsaturated IBC 243 ug/dL (200-275) 06/28/19 06:40 Ferritin 176.8 ng/ml (8-388) 06/28/19 06:40 Total Bilirubin 1.0 mg/dL (0.2-1) 06/29/19 06:25 Direct Bilirubin 0.6 mg/dL (0.0-0.2) H 06/27/19 06:30 AST 62 U/L (15-37) H 06/29/19 06:25 ALT 113 U/L (13-61) H 06/29/19 06:25 Alkaline Phosphatase 111 U/L (45-117) 06/29/19 06:25 C-Reactive Protein 25.6 MG/DL (0.00-0.3) H 06/27/19 06:30 Total Protein 5.8 g/dl (6.4-8.2) L 06/29/19 06:25 Albumin 2.1 g/dl (3.4-5.0) L 06/29/19 06:25 Triglycerides 42 mg/dL (0-150) 06/24/19 07:30 Cholesterol 122 mg/dL (50-200) 06/24/19 07:30 Total LDL Cholesterol 62 mg/dL (5-100) 06/24/19 07:30 HDL Cholesterol 52 mg/dL (40-60) 06/24/19 07:30 Total Amylase 77 U/L (25-115) 06/27/19 06:30 Lipase 96 U/L (73-393) 06/27/19 06:30 Beta HCG, Quant < 1.0 mIU/ml 06/23/19 19:59 Current Medications Docusate Sodium (Colace -) 100 mg PO Q12H PRN PRN Reason: CONSTIPATION Fentanyl (Sublimaze Injection -) 50 mcg IVPUSH [id number] PRN PRN Reason: PAIN-PACU ORDER X 4 DOSES ONLY Last Admin: 06/29/19 14:25 Dose: 50 mcg Piperacillin Sod/Tazobactam (Sod 4.5 gm/ Dextrose) 100 mls @ 200 mls/hr IVPB Q8H-IV LULU; Protocol Last Admin: 06/29/19 10:29 Dose: 200 mls/hr Lactated Ringer's (Lactated Ringers Solution) 1,000 ml in 1,000 mls @ 150 mls/ hr IV ASDIR LULU Last Admin: 06/29/19 06:25 Dose: 150 mls/hr Ibuprofen (Caldolor Injection -) 800 mg IVPB Q6H PRN PRN Reason: Pain - Pacu Ondansetron HCl (Zofran Injection) 4 mg IVPUSH Q6H PRN PRN Reason: NAUSEA AND/OR VOMITING Oxycodone HCl (Roxicodone -) 5 mg PO Q4H PRN PRN Reason: PAIN LEVEL 1-5 Oxycodone HCl (Roxicodone -) 10 mg PO Q4H PRN PRN Reason: PAIN LEVEL 6-10 Last Admin: 06/29/19 05:16 Dose: 10 mg ASSESSMENT/PLAN: 23 yo F PMH of hiradrenitis suppurtica, hx of alcohol abuse presented to ED for abdominal pain. Pt is admitted for acute pancreatitis. Sepsis 2/2 Acute pancreatitis 2/2 choledocolithiasis - CTA/P reviewed: diffuse pancreatic inflammation and peripancreatic fluid c/w pancreatitis, no abscess or pseudocyst. rpt CT done. -RUQ US shows cholelithiasis, minimal to mild diffuse gallbladder wall edema, no biliary ductal dilatation, hepatic steatosis, acute pancreatitis - s/p cholecystectomy today, 06/29/2019 - febrile past 2 nights, cultures negative. -IVF ( rate decreased) , pain control with dilaudid, zofran for nausea - Continue Zosyn day 4 - TBili/ Dbili increased yesterday, today improved - ERCP 06/26, 3 stones removed from distal CBD - GI following ( Dr. Hernández) - Lipase 96, improved -leukocytosis downtrending Anemia -h/h stable - possible 2/2 IVF hydration -continue to monitor Morbid obesity -BMI 45.7 - counselled on diet and exercise DVT ppx: early ambulation Dispo: continue med/ surg Visit type - Emergency Visit Emergency Visit: No - New Patient This patient is new to me today: No - Critical Care Critical Care patient: No - Discharge Referral Referred to [facility] Med P.C.: Yes Physician Referral: Justin Kaye DO (GI) ATTENDING PHYSICIAN STATEMENT I saw and evaluated the patient. I reviewed the resident's note and discussed the case with the resident. I agree with the resident's findings and plan as documented. SUBJECTIVE: OBJECTIVE: ASSESSMENT AND PLAN:
--- NOTE | 2019-06-29 15:00 | OP ---
Operative Note - Note: Operative Date: 06/29/19 Pre-Operative Diagnosis: Cholelithiasis and choledocolothiasis Operation: laproscopic cholecystectomy Post-Operative Diagnosis: Same as Pre-op Surgeon: [employer] Dean: Wellington Li Anesthesiologist/HORTICULTURAL FARMWORKER: Madhuri Gaston Anesthesia: General Estimated Blood Loss (mls): 5 Operative Report Dictated: Yes
[2019-06-29] MEDS ORDERED: LACTATED RINGERS SOLUTION 1,000 ML/1,000 ML INFUS.BAG IV SCH ×2 (16:29→17:39)
[2019-06-29] MEDS ORDERED: oxyCODONE HCL 5 MG TABLET PO PRN (16:29)
[2019-06-29] MEDS ORDERED: DOCUSATE SODIUM 100 MG CAPSULE (FP) PO PRN (16:29)
--- NOTE | 2019-06-29 17:40 | PN ---
Teaching Attending Note Name of Resident: Reba Yee ATTENDING PHYSICIAN STATEMENT I saw and evaluated the patient. I reviewed the resident's note and discussed the case with the resident. I agree with the resident's findings and plan as documented. SUBJECTIVE: reported fever over night and Ct was done. seen today after CCY, has pain in abd. no N/v . hungry OBJECTIVE: NAD CV: RRR Lungs: no crackles but decreased breath sounds at bases Abd: obese, soft,slightly distended compared to yesterday. absent BS. tape on the laparoscopic wounds Ext: No edema or erythema ASSESSMENT AND PLAN: 23 y/o lady with h/o alcohol use, and hydradenitis suppurativa who presented with abd pain and was found to have acute pancreatitis 1- Acute pancreatitis 2- Sepsis 3- Ascending cholangitis , s/p ERCP and removal of stones 4-fever 5- microcytic anemia 7- morbid obesity plan: - Ct reviewed. - cont zosyn - CCY today, no abscess or perforation noted - decrease rate of IVF - resume full liquid diet . probably can do low fat tomorrow - follow LFTS -iron studies need to be repeated as out pt. further anemia w/u as out pt - A1c noted - will start DVT px tomorrow HLOC
[2019-06-29] MEDS: MORPHINE SULFATE 2 MG/ML VIAL IVPUSH PRN ×2 (17:59→22:30)
[2019-06-30] MEDS ORDERED: MELATONIN 5 MG TABLETS PO ONE (00:03)
[2019-06-30] MEDS ORDERED: PIPERACILLIN/TAZOBACTAM 4.5 GM VIAL IVPB ONE ×3 (00:12→17:17)
[2019-06-30] MEDS ORDERED: DEXTROSE 5%-WATER 100 ML IVPB ONE ×3 (00:12→17:17)
[2019-06-30] MEDS: oxyCODONE HCL 5 MG TABLET PO PRN ×3 (01:35→22:02)
[2019-06-30] MEDS: PIPERACILLIN/TAZOB 4.5 GM 4.5 GM in DEXTROSE 5%-WATER 100 ML IVPB SCH ×3 (01:36→17:45)
[2019-06-30 07:48] LABS: BASO % 0.2 % (0-2.0); EOS % 0.1 % (0-4.5); HEMATOCRIT 21.9 % (32.4-45.2); HEMOGLOBIN 7.1 GM/dL (10.7-15.3); LYMPH % 9.1 % (8-40); MCH 23.7 pg (25.7-33.7); MCHC 32.5 g/dl (32.0-36.0); MEAN CELL VOLUME 72.8 fl (80-96); MEAN PLT VOLUME 7.3 fl (7.5-11.1); NEUT % 83.6 % (42.8-82.8); PLATELET COUNT 383 K/MM3 (134-434); RBC 3.01 M/mm3 (3.60-5.2); RDW 15.8 % (11.6-15.6); WHITE BLOOD COUNT 19.1 K/mm3 (4.0-10.0)
[2019-06-30 08:11] LABS: BILIRUBIN,TOTAL 0.6 mg/dL (0.2-1); BLOOD UREA NITROGEN 12.6 mg/dL (7-18); CALCIUM 8.1 mg/dL (8.5-10.1); CREATININE 0.6 mg/dL (0.55-1.3); MAGNESIUM 2.2 mg/dL (1.8-2.4); PHOSPHOROUS 4.5 mg/dL (2.5-4.9); POTASSIUM 4.1 mmol/L (3.5-5.1); TOT PROT 5.5 g/dl (6.4-8.2)
[2019-06-30] MEDS ORDERED: HYDROmorphone HCl 2 MG/ML VIAL IVPUSH ONE (08:34)
[2019-06-30] MEDS ORDERED: ENOXAPARIN NA (PORCINE) 40 MG/0.4 ML DISP.SYRIN SQ SCH (10:00)
--- NOTE | 2019-06-30 10:34 | EKG ---
Test Reason : Blood Pressure : / mmHG Vent. Rate : 123 BPM Atrial Rate : 123 BPM P-R Int : 126 ms QRS Dur : 080 ms QT Int : 318 ms P-R-T Axes : 038 023 -03 degrees QTc Int : 455 ms POOR DATA QUALITY, INTERPRETATION MAY BE ADVERSELY AFFECTED SINUS TACHYCARDIA WITH OCCASIONAL PREMATURE VENTRICULAR COMPLEXES OTHERWISE NORMAL ECG WHEN COMPARED WITH ECG OF 24-JUN-2019 05:09, PREMATURE VENTRICULAR COMPLEXES ARE NOW PRESENT VENT. RATE HAS INCREASED BY 68 BPM T WAVE AMPLITUDE HAS DECREASED IN LATERAL LEADS Confirmed by LULU OVERTON MD ([id number]) on 06/30/2019 10:34:27 AM Referred By: Confirmed By:LULU OVERTON MD
[2019-06-30 10:42] LABS: ANISOCYTOSIS 1+; MACROCYTOSIS 0; OVALOCYTE 1+; PLATELET ESTIMATE NORMAL; TEAR DROP CELLS 1+; TOXIC GRANULATION 2+
--- NOTE | 2019-06-30 10:51 | PN ---
Progress Note (short form) - Note Progress Note: Still complains of abdominal pain. Abdomen: bowel sounds present, hypoactive. No tenderness to palpation, no rebound. Labs: CBC,CMP WBC 19.1 K/mm3 (4.0-10.0) H 06/30/19 06:50 RBC 3.01 M/mm3 (3.60-5.2) L 06/30/19 06:50 Hgb 7.1 GM/dL (10.7-15.3) L 06/30/19 06:50 Hct 21.9 % (32.4-45.2) L D 06/30/19 06:50 MCV 72.8 fl (80-96) L 06/30/19 06:50 MCH 23.7 pg (25.7-33.7) L 06/30/19 06:50 MCHC 32.5 g/dl (32.0-36.0) 06/30/19 06:50 RDW 15.8 % (11.6-15.6) H 06/30/19 06:50 Plt Count 383 K/MM3 (134-434) D 06/30/19 06:50 MPV 7.3 fl (7.5-11.1) L 06/30/19 06:50 Absolute Neuts (auto) 16.0 K/mm3 (1.5-8.0) H 06/30/19 06:50 Neutrophils % 83.6 % (42.8-82.8) H 06/30/19 06:50 Neutrophils % (Manual) 79.8 % (42.8-82.8) 06/28/19 06:40 Band Neutrophils % 2.0 % 06/28/19 06:40 Lymphocytes % 9.1 % (8-40) 06/30/19 06:50 Lymphocytes % (Manual) 15.2 % (8-40) D 06/28/19 06:40 Monocytes % 7.0 % (3.8-10.2) 06/30/19 06:50 Monocytes % (Manual) 3 % (3.8-10.2) L D 06/28/19 06:40 Eosinophils % 0.1 % (0-4.5) 06/30/19 06:50 Eosinophils % (Manual) 0.0 % (0-4.5) 06/28/19 06:40 Basophils % 0.2 % (0-2.0) 06/30/19 06:50 Basophils % (Manual) 0.0 % (0-2.0) 06/28/19 06:40 Myelocytes % (Man) 0 % (0-2) D 06/28/19 06:40 Promyelocytes % (Man) 0 % (0-2) 06/28/19 06:40 Blast Cells % (Manual) 0 % (0-0) 06/28/19 06:40 Nucleated RBC % 0 % (0-0) 06/30/19 06:50 Metamyelocytes 0 % (0-2) 06/28/19 06:40 Hypochromia 1+ 06/28/19 06:40 Platelet Estimate Normal 06/28/19 06:40 Polychromasia 1+ 06/28/19 06:40 Poikilocytosis 0 06/28/19 06:40 Anisocytosis 2+ 06/28/19 06:40 Microcytosis 2+ 06/28/19 06:40 Macrocytosis 0 06/28/19 06:40 Sodium 139 mmol/L (136-145) 06/30/19 06:50 Potassium 4.1 mmol/L (3.5-5.1) 06/30/19 06:50 Chloride 106 mmol/L (98-107) 06/30/19 06:50 Carbon Dioxide 26 mmol/L (21-32) 06/30/19 06:50 Anion Gap 8 MMOL/L (8-16) 06/30/19 06:50 BUN 12.6 mg/dL (7-18) 06/30/19 06:50 Creatinine 0.6 mg/dL (0.55-1.3) 06/30/19 06:50 Est GFR (CKD-EPI)AfAm 146.83 06/30/19 06:50 Est GFR (CKD-EPI)NonAf 126.68 06/30/19 06:50 Random Glucose 130 mg/dL (74-106) H 06/30/19 06:50 Hemoglobin A1c % 5.3 % (4.2-6.3) 06/29/19 06:25 Lactic Acid 1.1 mmol/L (0.4-2.0) 06/26/19 07:19 Calcium 8.1 mg/dL (8.5-10.1) L 06/30/19 06:50 Phosphorus 4.5 mg/dL (2.5-4.9) 06/30/19 06:50 Magnesium 2.2 mg/dL (1.8-2.4) 06/30/19 06:50 Iron 14 ug/dL (50-175) L 06/28/19 06:40 TIBC 257 ug/dL (250-450) 06/28/19 06:40 Iron Saturation 5 % (17.5-39) L 06/28/19 06:40 Unsaturated IBC 243 ug/dL (200-275) 06/28/19 06:40 Ferritin 176.8 ng/ml (8-388) 06/28/19 06:40 Total Bilirubin 0.6 mg/dL (0.2-1) 06/30/19 06:50 Direct Bilirubin 0.6 mg/dL (0.0-0.2) H 06/27/19 06:30 AST 76 U/L (15-37) H 06/30/19 06:50 ALT 144 U/L (13-61) H 06/30/19 06:50 Alkaline Phosphatase 108 U/L (45-117) 06/30/19 06:50 C-Reactive Protein 25.6 MG/DL (0.00-0.3) H 06/27/19 06:30 Total Protein 5.5 g/dl (6.4-8.2) L 06/30/19 06:50 Albumin 2.0 g/dl (3.4-5.0) L 06/30/19 06:50 Triglycerides 42 mg/dL (0-150) 06/24/19 07:30 Cholesterol 122 mg/dL (50-200) 06/24/19 07:30 Total LDL Cholesterol 62 mg/dL (5-100) 06/24/19 07:30 HDL Cholesterol 52 mg/dL (40-60) 06/24/19 07:30 Total Amylase 77 U/L (25-115) 06/27/19 06:30 Lipase 96 U/L (73-393) 06/27/19 06:30 Beta HCG, Quant < 1.0 mIU/ml 06/23/19 19:59 WBC is rising, which is worrisome. AST and ALT are also rising. CT scan yesterday-> no perforation, still with significant pancreatic and peripancreatic inflammation. No obvious pancreatic necrosis noted. It is not often appreciated that obesity is a risk factor for severe pancreatitis. Prognosis is guarded. Continue to monitor WBC, lfts; repeat CT scan if she deteriorates further. Pancreatic necrosis may not be appreciated on imaging until a few more days have passed.
--- NOTE | 2019-06-30 11:31 | PN ---
Progress Note (short form) - Note Progress Note: Attending Surgeon POD#1 Minimal c/o pain; tolerating clear liquids VSS AF abdo-soft; port site dressings c/d/i;tenderness at port sites appropriate; o/w negative. labs noted GI f/u noted IMP: stable s/p lap antony w/probable resolving pancreatitis and s/p ERCP and stone extraction PLAN: OOB walking; pulmonary toilet; monitor labs; do not advance diet at this time. Brendon Spicer MD FACS
--- NOTE | 2019-06-30 11:47 | OP ---
DATE OF OPERATION: 06/29/2019 PREOPERATIVE DIAGNOSIS: Cholelithiasis, choledocholithiasis, and gallstone pancreatitis. PROCEDURE: Laparoscopic cholecystectomy. SURGEON: Brendon Spicer MD SANITARY INSPECTOR: Wellington Soriano PA-C ANESTHESIA: General. OPERATIVE FINDINGS: Cholelithiasis. Some free intraperitoneal fluid most likely reactive to the patient's underlying pancreatitis and hepatomegaly. The rest of the findings were unremarkable. DESCRIPTION OF PROCEDURE: The patient was placed on the operating room table in supine position. After the induction of general anesthesia, the patient's abdomen was prepped with ChloraPrep and draped in sterile fashion. Time-out was taken and then pneumoperitoneum established above the umbilicus using a Veress needle. Once 15 mm of intra-abdominal pressure was obtained, a 5-mm port was placed at the umbilicus. Additional lateral 5-mm ports and a subxiphoid 12-mm port were placed and laparoscopy carried out, and the previously noted findings were observed. The gallbladder was placed on cephalad and lateral traction, and dissection was begun at the neck of the gallbladder where the peritoneum was opened medially and laterally using blunt and sharp dissection and electrocautery. Dissection continued in the triangle of Calot where the cystic duct was identified coursing from the neck of the gallbladder distally to the common bile duct. It was dissected proximally and distally for length. Similarly, the artery was similarly identified and dissected. A critical view of safety was taken, and then the cystic duct divided proximally and distally using Endo Haydee after it was clipped twice proximally and distally with large hemoclips. The artery was similarly clipped and divided. Hemostasis was checked for and noted to be good and then the gallbladder was removed from the liver bed in a retrograde fashion using electrocautery. Prior to removal from the edge of the liver, hemostasis was again verified and then the gallbladder removed from the edge of the liver, placed in an EndoCatch, and brought out through the subxiphoid port. Pneumoperitoneum was reestablished, hemostasis verified again, and then the 5-mm lateral and subxiphoid ports were removed under laparoscopic vision without evidence of bleeding from the port sites. The umbilical port was removed and the pneumoperitoneum evacuated. All port sites were infiltrated with 0.5% Marcaine and the skin edges closed with 4-0 Biosyn in a subcuticular and continuous fashion. Steri-Strips and Band-Aid dressings were placed and the procedure terminated at this point and the patient aroused from general anesthesia and transferred to the post anesthesia care unit in stable condition awake and alert. ESTIMATED BLOOD LOSS: 10 mL. REPLACEMENTS: Crystalloid. DRAINS: None. SPECIMENS: Gallbladder and contents to Pathology. I, Brendon Spicer, was physically present in the operating room from the time the patient was placed on the operating room table until she was transferred to the post anesthesia care unit in [place]. MD MIRANDA Hector/[id number] MTDD
--- NOTE | 2019-06-30 12:38 | PN ---
Progress Note (short form) - Note Progress Note: 23F s/p lap cholecystectomy under GETA. On clears. Reports pain last night in immediate postop period. Vital Signs Temp 98.2 F 06/30/19 09:27 Pulse 103 H 06/30/19 09:27 Resp 18 06/30/19 09:27 BP 144/73 06/30/19 09:27 Pulse Ox 98 06/29/19 21:00 Intake & Output 06/29/19 06/30/19 06/30/19 23:59 11:59 23:59 Intake Total 2450 600 Balance 2450 600 Intake: IV 2350 600 LACTATED RINGERS SOLUTION 450 1,000 ml In 1,000 ml @ 150 mls/hr IV ASDIR LULU Rx#:[id number] LACTATED RINGERS SOLUTION 300 600 1,000 ml In 1,000 ml @ 75 mls/hr IV ASDIR [facility] Rx #:[id number] IVPB 100 Other: Voiding Method Toilet Toilet # Unmeasured Voids Void 2 Bowel Movement No No Body Mass Index (BMI) 45.7 CBC, BMP 06/30/19 06:50 06/30/19 06:50 - No anesthesia complications - Continue current analgesic regimen - Add Ofirmev q6h PRN if c/o persistent pain on PO opioids - Dawson IV hydromorphone for severe breakthrough pain
[2019-06-30] MEDS: HYDROmorphone HCl 2 MG/ML VIAL IVPUSH PRN ×2 (14:43→23:06)
[2019-06-30 15:14] LABS: HEMATOCRIT 21.1 % (32.4-45.2); MCH 23.5 pg (25.7-33.7); MCHC 31.8 g/dl (32.0-36.0); MEAN PLT VOLUME 7.2 fl (7.5-11.1); PLATELET COUNT 395 K/MM3 (134-434); RBC 2.85 M/mm3 (3.60-5.2); RDW 15.6 % (11.6-15.6); WHITE BLOOD COUNT 15.7 K/mm3 (4.0-10.0)
[2019-06-30 15:17] LABS: HEMOGLOBIN 6.7 GM/dL (10.7-15.3)
[2019-06-30] MEDS ORDERED: FUROSEMIDE 40 MG/4 ML INJECTABLE VIAL IVPUSH ONE (15:25)
--- NOTE | 2019-06-30 15:39 | PN ---
Teaching Attending Note Name of Resident: Reba Yee ATTENDING PHYSICIAN STATEMENT I saw and evaluated the patient. I reviewed the resident's note and discussed the case with the resident. I agree with the resident's findings and plan as documented. SUBJECTIVE: seen at 9 am no fever or chills. has epigastric pain last night and felt SOB because of it. has no SOB at time of evaluation . abd pain stable. No N/V . tolertaed full liquid wants dilaudid for pain OBJECTIVE: NAD CV: RRR Lungs: no crackles but decreased breath sounds at bases. Abd: obese, soft,ND. NL BS. tape on the laparoscopic wounds . TTP in epigastric and RUQ Ext: No edema or erythema ASSESSMENT AND PLAN: 23 y/o lady with h/o alcohol use, and hydradenitis suppurativa who presented with abd pain and was found to have acute pancreatitis 1- Acute pancreatitis 2- Sepsis 3- Ascending cholangitis , s/p ERCP and removal of stones . 4-Acute blood loss anemia 5- microcytic anemia 7- morbid obesity 8-s/p cholecystectomy 06/29/19 plan: - HB has dropped today. possibly acute blood loss anemia. r/o bleeding in gall bladder bed - transfuse 1 unti of RB C - get US to evaluate gall bladder bed fro any fluid collection . trying to avoid another CT in this young lady - Cxray reviewed. igns of congestion and pleural effusion . give a dose of lasix - cont zosyn - DC IVF - cont full liquid diet. she does not feel ready fro low fat diet - give very low dose of dilaudid today but non tomorrow . cont Oxy. she agrees to plan - follow LFTS -iron studies need to be repeated as out pt. further anemia w/u as out pt - hold DVT PX due to anemia for now . - dc ibuprofen HLOC
--- NOTE | 2019-06-30 16:08 | PN ---
Physical Exam: SUBJECTIVE: Patient seen and examined at bedside. pt states that she is in significant pain. she states that she feels the pain is worse on inspiration . she describes the pain as RUQ radiating to R shoulder. OBJECTIVE: Vital Signs Period Temp Pulse Resp BP Sys/Lewis Pulse Ox Last 24 Hr 97.8 F-99 F 103-117 18-21 119-149/66-82 98-98 GENERAL: The patient is awake, alert, and fully oriented, in no acute distress. HEAD: Normal with no signs of trauma. LUNGS: Breath sounds equal, clear to auscultation bilaterally, no wheezes, no crackles, no accessory muscle use. HEART: Regular rate and rhythm, S1, S2 without murmur, rub or gallop. ABDOMEN: Soft, tender to palpation of RUQ, epigastric; nondistended, normoactive bowel sounds, no guarding EXTREMITIES: 2+ pulses, warm, well-perfused, no edema. SKIN: Warm, dry, normal turgor, no rashes or lesions noted Laboratory Results - last 24 hr 06/30/19 06/30/19 06/30/19 06:50 06:50 14:30 WBC 19.1 H 15.7 H RBC 3.01 L 2.85 L Hgb 7.1 L 6.7 L* Hct 21.9 L D 21.1 L MCV 72.8 L 74.0 L MCH 23.7 L 23.5 L MCHC 32.5 31.8 L RDW 15.8 H 15.6 Plt Count 383 D 395 MPV 7.3 L 7.2 L Absolute Neuts (auto) 16.0 H Neutrophils % 83.6 H Neutrophils % (Manual) 86.0 H Band Neutrophils % 2.0 Lymphocytes % 9.1 Lymphocytes % (Manual) 4.0 L D Monocytes % 7.0 Monocytes % (Manual) 4 Eosinophils % 0.1 Eosinophils % (Manual) 0.0 Basophils % 0.2 Basophils % (Manual) 0.0 Myelocytes % (Man) 3 H D Promyelocytes % (Man) 0 Blast Cells % (Manual) 0 Nucleated RBC % 1 H Metamyelocytes 0 Hypochromia 0 Toxic Granulation 2+ Platelet Estimate Normal Polychromasia 1+ Poikilocytosis 1+ Anisocytosis 1+ Microcytosis 1+ Macrocytosis 0 Spherocytes 1+ Tear Drop Cells 1+ Ovalocytes 1+ Stomatocytes 1+ Sodium 139 Potassium 4.1 Chloride 106 Carbon Dioxide 26 Anion Gap 8 BUN 12.6 Creatinine 0.6 Est GFR (CKD-EPI)AfAm 146.83 Est GFR (CKD-EPI)NonAf 126.68 Random Glucose 130 H Calcium 8.1 L Phosphorus 4.5 Magnesium 2.2 Total Bilirubin 0.6 AST 76 H ALT 144 H Alkaline Phosphatase 108 Total Protein 5.5 L Albumin 2.0 L Current Medications Docusate Sodium (Colace -) 100 mg PO Q12H PRN PRN Reason: CONSTIPATION Hydromorphone HCl (Dilaudid Vial -) 0.5 mg IVPUSH Q6H PRN PRN Reason: PAIN LEVEL 6-10 Stop: 07/01/19 06:00 Last Admin: 06/30/19 14:43 Dose: 0.5 mg Piperacillin Sod/Tazobactam (Sod 4.5 gm/ Dextrose) 100 mls @ 200 mls/hr IVPB Q8H-IV [facility]ULU; Protocol Last Admin: 06/30/19 09:15 Dose: 200 mls/hr Ondansetron HCl (Zofran Injection) 4 mg IVPUSH Q6H PRN PRN Reason: NAUSEA AND/OR VOMITING Oxycodone HCl (Roxicodone -) 5 mg PO Q4H PRN PRN Reason: PAIN LEVEL 1-5 Last Admin: 06/29/19 22:28 Dose: 5 mg Oxycodone HCl (Roxicodone -) 10 mg PO Q4H PRN PRN Reason: PAIN LEVEL 6-10 Last Admin: 06/30/19 05:58 Dose: 10 mg ASSESSMENT/PLAN: 23 yo F PMH of hiradrenitis suppurtica, obesity , hx of alcohol abuse presented to ED for abdominal pain. Pt is admitted for acute pancreatitis. Sepsis 2/2 Acute pancreatitis 2/2 choledocolithiasis - CTA/P reviewed: diffuse pancreatic inflammation and peripancreatic fluid c/w pancreatitis, no abscess or pseudocyst. rpt CT done. -RUQ US shows cholelithiasis, minimal to mild diffuse gallbladder wall edema, no biliary ductal dilatation, hepatic steatosis, acute pancreatitis - s/p cholecystectomy yesterday, 06/29/2019. EBL 5 - febrile past earlier this past week, cultures negative. - pain control with dilaudid today, oxycodone tomorrow. zofran for nausea - hold off on fluids as pt is getting overloaded. will give lasix 40 IV once - Continue Zosyn day 5 - ERCP 06/26, 3 stones removed from distal CBD - GI following ( Dr. Hernández) - Lipase 96, improved -leukocytosis increased today Anemia -h/h decreased. 6.7 . will transfuse 1 u prbc . r/o active bleeding in gall bladder bed. will check u/s - rpt H/H at 20:00 Morbid obesity -BMI 45.7 - counselled on diet and exercise DVT ppx: early ambulation. hold chemical ppx in setting of acute drop in H/H Dispo: continue med/ surg Visit type - Emergency Visit Emergency Visit: No - New Patient This patient is new to me today: No - Critical Care Critical Care patient: No - Discharge Referral Referred to [facility] Med P.C[facility] No ATTENDING PHYSICIAN STATEMENT I saw and evaluated the patient. I reviewed the resident's note and discussed the case with the resident. I agree with the resident's findings and plan as documented. SUBJECTIVE: OBJECTIVE: ASSESSMENT AND PLAN:
--- NOTE | 2019-06-30 17:26 | PN ---
Progress Note, Physician History of Present Illness: Pt c/o abd pain, appears comfortable. No other specific complaints. - Current Medication List Current Medications: Active Medications Docusate Sodium (Colace -) 100 mg PO Q12H PRN PRN Reason: CONSTIPATION Hydromorphone HCl (Dilaudid Vial -) 0.5 mg IVPUSH Q6H PRN PRN Reason: PAIN LEVEL 6-10 Stop: 07/01/19 06:00 Last Admin: 06/30/19 14:43 Dose: 0.5 mg Piperacillin Sod/Tazobactam (Sod 4.5 gm/ Dextrose) 100 mls @ 200 mls/hr IVPB Q8H-IV LULU; Protocol Last Admin: 06/30/19 09:15 Dose: 200 mls/hr Ondansetron HCl (Zofran Injection) 4 mg IVPUSH Q6H PRN PRN Reason: NAUSEA AND/OR VOMITING Oxycodone HCl (Roxicodone -) 5 mg PO Q4H PRN PRN Reason: PAIN LEVEL 1-5 Last Admin: 06/29/19 22:28 Dose: 5 mg Oxycodone HCl (Roxicodone -) 10 mg PO Q4H PRN PRN Reason: PAIN LEVEL 6-10 Last Admin: 06/30/19 05:58 Dose: 10 mg - Objective Vital Signs: Vital Signs Temperature 98.1 F 06/30/19 13:54 Pulse Rate 108 H 06/30/19 13:54 Respiratory Rate 20 06/30/19 13:54 Blood Pressure 140/72 06/30/19 13:54 O2 Sat by Pulse Oximetry (%) 98 06/30/19 09:00 Constitutional: Yes: No Distress, Calm Cardiovascular: Yes: Regular Rate and Rhythm Respiratory: Yes: Regular Gastrointestinal: Yes: Normal Bowel Sounds, Soft, Abdomen, Obese, Tenderness ( mainly in epig/RUQ surgical site) Genitourinary: Yes: WNL Extremities: Yes: WNL Edema: No Peripheral Pulses WNL: Yes Integumentary: Yes: WNL Wound/Incision: Yes: Dressing Dry and Intact Neurological: Yes: Alert, Oriented Labs: CBC, BMP 06/30/19 14:30 06/30/19 06:50 INR, PTT INR 1.37 (0.83-1.09) H 06/29/19 06:25 Microbiology 06/25/19 15:45 Blood - Peripheral Venous Blood Culture - Final NO GROWTH AFTER 5 DAYS INCUBATION 06/25/19 15:45 Blood - Peripheral Venous Blood Culture - Final NO GROWTH AFTER 5 DAYS INCUBATION 06/28/19 04:20 Blood - Peripheral Venous Blood Culture - Preliminary NO GROWTH OBTAINED AFTER 48 HOURS, INCUBATION TO CONTINUE FOR 3 DAYS. 06/28/19 04:20 Blood - Peripheral Venous Blood Culture - Preliminary NO GROWTH OBTAINED AFTER 48 HOURS, INCUBATION TO CONTINUE FOR 3 DAYS. 06/28/19 06:00 Urine - Urine Clean Catch Urine Culture - Final NO GROWTH OBTAINED 06/23/19 22:58 Urine - Urine Clean Catch Urine Culture - Final Normal Urogenital Tiny Problem List - Problems (1) Gallstone pancreatitis Code(s): K85.10 - BILIARY ACUTE PANCREATITIS WITHOUT NECROSIS OR INFECTION Assessment/Plan Acute pancreatitis Acute Cholecystitis/choledocholithiasis ETOH abuse Obesity -- s/p lap cholecystectomy, ERCP/stone extraction -- wbc decreased since yesterday, lipase normal -- continue Zosyn -- continue monitor wbc -- pain control
[2019-07-01] MEDS ORDERED: DEXTROSE 5%-WATER 100 ML IVPB ONE ×3 (01:39→17:56)
[2019-07-01] MEDS ORDERED: PIPERACILLIN/TAZOBACTAM 4.5 GM VIAL IVPB ONE ×3 (01:39→17:56)
[2019-07-01] MEDS: PIPERACILLIN/TAZOB 4.5 GM 4.5 GM in DEXTROSE 5%-WATER 100 ML IVPB SCH ×3 (02:30→18:07)
[2019-07-01 02:56] LABS: BASO % 0.4 % (0-2.0); LYMPH % 22.6 % (8-40); MCH 24.5 pg (25.7-33.7); MEAN CELL VOLUME 76.5 fl (80-96); MEAN PLT VOLUME 7.3 fl (7.5-11.1); MONO % 6.3 % (3.8-10.2); NEUT % 69.7 % (42.8-82.8); PLATELET COUNT 314 K/MM3 (134-434); RBC 2.75 M/mm3 (3.60-5.2); RDW 17.1 % (11.6-15.6); WHITE BLOOD COUNT 11.9 K/mm3 (4.0-10.0)
[2019-07-01 03:24] LABS: HEMOGLOBIN 6.7 GM/dL (10.7-15.3)
[2019-07-01 03:30] LABS: INR 1.32 (0.83-1.09); PROTHROMBIN TIME (PATIENT) 15.6 SEC (9.7-13.0)
[2019-07-01 03:32] LABS: ACTIVATED PTT 31.6 SECONDS (25.2-36.5)
[2019-07-01] MEDS: oxyCODONE HCL 5 MG TABLET PO PRN ×2 (04:05→18:06)
[2019-07-01] MEDS: HYDROmorphone HCl 2 MG/ML VIAL IVPUSH PRN (05:31)
[2019-07-01] MEDS ORDERED: HYDROmorphone HCl 2 MG/ML VIAL IVPUSH PRN (07:50)
--- NOTE | 2019-07-01 07:57 | PN ---
Progress Note (short form) - Note Progress Note: Subjective: no fever or chills. She feels better compared to yesterday. has no SOB , she feels lasix helped. No N/V. abd pain improved. no BM . burping made her feel better . Over night her HB dropped and a CT without contrast was ordered. 2 units of blood were ordered . one given and one is infusing now. Objective: Vital Signs: Last Vital Signs Temp Pulse Resp BP Pulse Ox 98.9 F 108 H 20 149/79 98 07/01/19 05:58 07/01/19 05:58 07/01/19 05:58 07/01/19 05:58 06/30/19 21:00 Laboratory Results - last 24 hr 06/30/19 06/30/19 06/30/19 06:50 06:50 14:30 WBC 19.1 H 15.7 H RBC 3.01 L 2.85 L Hgb 7.1 L 6.7 L* Hct 21.9 L D 21.1 L MCV 72.8 L 74.0 L MCH 23.7 L 23.5 L MCHC 32.5 31.8 L RDW 15.8 H 15.6 Plt Count 383 D 395 MPV 7.3 L 7.2 L Absolute Neuts (auto) 16.0 H Neutrophils % 83.6 H Neutrophils % (Manual) 86.0 H Band Neutrophils % 2.0 Lymphocytes % 9.1 Lymphocytes % (Manual) 4.0 L D Monocytes % 7.0 Monocytes % (Manual) 4 Eosinophils % 0.1 Eosinophils % (Manual) 0.0 Basophils % 0.2 Basophils % (Manual) 0.0 Myelocytes % (Man) 3 H D Promyelocytes % (Man) 0 Blast Cells % (Manual) 0 Nucleated RBC % 1 H Metamyelocytes 0 Hypochromia 0 Toxic Granulation 2+ Platelet Estimate Normal Polychromasia 1+ Poikilocytosis 1+ Anisocytosis 1+ Microcytosis 1+ Macrocytosis 0 Spherocytes 1+ Tear Drop Cells 1+ Ovalocytes 1+ Stomatocytes 1+ PT with INR INR PTT (Actin FS) Sodium 139 Potassium 4.1 Chloride 106 Carbon Dioxide 26 Anion Gap 8 BUN 12.6 Creatinine 0.6 Est GFR (CKD-EPI)AfAm 146.83 Est GFR (CKD-EPI)NonAf 126.68 Random Glucose 130 H Calcium 8.1 L Phosphorus 4.5 Magnesium 2.2 Total Bilirubin 0.6 AST 76 H ALT 144 H Alkaline Phosphatase 108 Total Protein 5.5 L Albumin 2.0 L Blood Type Antibody Screen Crossmatch 06/30/19 06/30/19 07/01/19 16:05 16:10 02:25 WBC 11.9 H RBC 2.75 L Hgb 6.7 L* Hct 21.0 L MCV 76.5 L MCH 24.5 L MCHC 32.0 RDW 17.1 H Plt Count 314 D MPV 7.3 L Absolute Neuts (auto) 8.3 H Neutrophils % 69.7 Neutrophils % (Manual) Band Neutrophils % Lymphocytes % 22.6 D Lymphocytes % (Manual) Monocytes % 6.3 Monocytes % (Manual) Eosinophils % 1.0 D Eosinophils % (Manual) Basophils % 0.4 Basophils % (Manual) Myelocytes % (Man) Promyelocytes % (Man) Blast Cells % (Manual) Nucleated RBC % 0 Metamyelocytes Hypochromia Toxic Granulation Platelet Estimate Polychromasia Poikilocytosis Anisocytosis Microcytosis Macrocytosis Spherocytes Tear Drop Cells Ovalocytes Stomatocytes PT with INR INR PTT (Actin FS) Sodium Potassium Chloride Carbon Dioxide Anion Gap BUN Creatinine Est GFR (CKD-EPI)AfAm Est GFR (CKD-EPI)NonAf Random Glucose Calcium Phosphorus Magnesium Total Bilirubin AST ALT Alkaline Phosphatase Total Protein Albumin Blood Type O POSITIVE O POSITIVE Antibody Screen Negative Crossmatch See Detail 07/01/19 02:25 WBC RBC Hgb Hct MCV MCH MCHC RDW Plt Count MPV Absolute Neuts (auto) Neutrophils % Neutrophils % (Manual) Band Neutrophils % Lymphocytes % Lymphocytes % (Manual) Monocytes % Monocytes % (Manual) Eosinophils % Eosinophils % (Manual) Basophils % Basophils % (Manual) Myelocytes % (Man) Promyelocytes % (Man) Blast Cells % (Manual) Nucleated RBC % Metamyelocytes Hypochromia Toxic Granulation Platelet Estimate Polychromasia Poikilocytosis Anisocytosis Microcytosis Macrocytosis Spherocytes Tear Drop Cells Ovalocytes Stomatocytes PT with INR 15.60 H INR 1.32 H PTT (Actin FS) 31.6 Sodium Potassium Chloride Carbon Dioxide Anion Gap BUN Creatinine Est GFR (CKD-EPI)AfAm Est GFR (CKD-EPI)NonAf Random Glucose Calcium Phosphorus Magnesium Total Bilirubin AST ALT Alkaline Phosphatase Total Protein Albumin Blood Type Antibody Screen Crossmatch Physical Exam: NAD, awake, alert, cooperative , looks more comfortable CV: Regular rate , slightly tachy ( 100) Lungs: improved areation of the bases . no crackles Abd: obese, soft, ND. NL BS. tape on the laparoscopic wounds. TTP in epigastric and RUQ Ext: No edema or erythema ASSESSMENT AND PLAN: 23 y/o lady with h/o alcohol use, and hydradenitis suppurativa who presented with abd pain and was found to have acute pancreatitis 1- Acute pancreatitis 2- Sepsis 3- Ascending cholangitis , s/p ERCP and removal of stones . 4- Acute blood loss anemia. r/o intra-abdominal bleed 5- Tachycardia . 6- s/p cholecystectomy 06/29/19 7- Ascitis and pleural effusions Plan: - Spoke to radiologist healthcare consultant ( [facility]) . prelim read showed pleural effusion and ascitis. small 2 cm area in gall bladder bed which might be blood. the density of the ascitis does not suggest bloody ascitis. - due to the acute drop of Hb after the surgery, I am worried abut bleeding. ascitis might be due to the inflammatory changes and the aggressive IVF resuscitation , but diluted blood could be contributing to it . Also, bile leak might need to be considered - abd exam shows no peritoneal signs, and tenderness is better today , tachycardia improved with transfusion . - will get CT scan of abd /P with contrast to r/o extravasation - make patient NPO for now. - Will discuss with Dr. Spicer, message left - Get EKG - repeat H&H after blood transfusion - cont Zosyn - if no bleeding, and no other procedures today, will give a dose of lasix. - hold chemical DVT PX. SCDs above plan was d/w Xiomy in details and she agrees will transfer patient to tele , and monitor closely. if there is any change in clinical status will transfer to ICU. [facility] Visit type - Emergency Visit Emergency Visit: Yes ED Registration Date: 06/23/19 Care time: The patient presented to the Emergency Department on the above date and was hospitalized for further evaluation of their emergent condition. - New Patient This patient is new to me today: No - Critical Care Critical Care patient: No
--- NOTE | 2019-07-01 09:19 | PN ---
Progress Note (short form) - Note Progress Note: Attending Surgeon POD#2 No specific c/o but feels tired VSS AF abdo-soft and non tender e/f port sites; active bowel sounds; port site dressings c/d/i; o/w negative h/h 6.7/21.6; receiving 2nd unit PRBC's now US and CT a/p/chest done yesterday and not conclusive for intraop bleeding; there are b/l pleural effusions; we did use at least 3 liters of irrigation intraop of which not all was suctioned out; there eas complete hemostasis at the completion of surgery. IMP: r/o post op bleed vs. other PLAN: Keep NPO/IVF/PRBC's and repeat CT a/p in 3 phases; d/w Dr. Whitfield and the patient. Brendon Spicer MD FACS
[2019-07-01] MEDS ORDERED: FUROSEMIDE 40 MG/4 ML INJECTABLE VIAL IVPUSH ONE (10:00)
--- NOTE | 2019-07-01 10:41 | PN ---
Progress Note (short form) - Note Progress Note: Case discussed with Dr. Spicer. On the positive side, the WBC is coming down, the patient has no fever, and in fact her only complaint is that she wants to go home; she denies abdominal pain, vomiting, or any GI complaint at all other than slight tenderness at her surgical site. Abdomen is soft, obese. CT scan reviewed by me; bilateral pleural effusions, small amount of fluid in pelvis (my reading -- no radiology report yet). Agree with Dr Spicer's plan as outlined in his note.
[2019-07-01 11:13] LABS: ANISOCYTOSIS 1+; PLATELET ESTIMATE ADEQUATE
[2019-07-01 15:23] LABS: BASO % 0.3 % (0-2.0); EOS % 0.7 % (0-4.5); HEMATOCRIT 27.9 % (32.4-45.2); HEMOGLOBIN 9.1 GM/dL (10.7-15.3); LYMPH % 13.7 % (8-40); MCH 25.4 pg (25.7-33.7); MCHC 32.6 g/dl (32.0-36.0); MEAN CELL VOLUME 77.9 fl (80-96); MEAN PLT VOLUME 6.9 fl (7.5-11.1); MONO % 5.7 % (3.8-10.2); NEUT % 79.6 % (42.8-82.8); PLATELET COUNT 366 K/MM3 (134-434); RBC 3.58 M/mm3 (3.60-5.2); RDW 17.5 % (11.6-15.6); WHITE BLOOD COUNT 11.9 K/mm3 (4.0-10.0)
[2019-07-01 15:47] LABS: PLATELET ESTIMATE ADEQUATE
[2019-07-01 15:51] LABS: ALBUMIN 2.6 g/dl (3.4-5.0); BILIRUBIN,TOTAL 0.6 mg/dL (0.2-1); BLOOD UREA NITROGEN 7.6 mg/dL (7-18); CALCIUM 8.5 mg/dL (8.5-10.1); CREATININE 0.6 mg/dL (0.55-1.3); POTASSIUM 3.7 mmol/L (3.5-5.1); TOT PROT 6.5 g/dl (6.4-8.2)
--- NOTE | 2019-07-01 16:21 | PN ---
Progress Note, Physician History of Present Illness: Events noted. Pt had drop in H/H requiring blood transfusion. CT A/P with findings of free fluid raising question of intra-op bleeding. Multiphase CT pending. Pt is alert, asking to eat (currently NPO). States she has some epigastric pain. Tmax 99.1F. - Current Medication List Current Medications: Active Medications Docusate Sodium (Colace -) 100 mg PO Q12H PRN PRN Reason: CONSTIPATION Last Admin: 07/01/19 10:49 Dose: 100 mg Hydromorphone HCl (Dilaudid Vial -) 0.5 mg IVPUSH Q8H PRN PRN Reason: PAIN LEVEL 7 - 10 Stop: 07/02/19 07:49 Last Admin: 07/01/19 13:44 Dose: 0.5 mg Piperacillin Sod/Tazobactam (Sod 4.5 gm/ Dextrose) 100 mls @ 200 mls/hr IVPB Q8H-IV LULU; Protocol Last Admin: 07/01/19 10:47 Dose: 200 mls/hr Ondansetron HCl (Zofran Injection) 4 mg IVPUSH Q6H PRN PRN Reason: NAUSEA AND/OR VOMITING Oxycodone HCl (Roxicodone -) 5 mg PO Q4H PRN PRN Reason: PAIN LEVEL 1-5 Last Admin: 06/29/19 22:28 Dose: 5 mg Oxycodone HCl (Roxicodone -) 10 mg PO Q4H PRN PRN Reason: PAIN LEVEL 6-10 Last Admin: 07/01/19 04:05 Dose: 10 mg - Objective Vital Signs: Vital Signs Temperature 98.4 F 07/01/19 14:28 Pulse Rate 112 H 07/01/19 14:28 Respiratory Rate 07/01/19 14:28 Blood Pressure 153/84 07/01/19 14:28 O2 Sat by Pulse Oximetry (%) 98 07/01/19 09:00 Constitutional: Yes: No Distress Eyes: Yes: Conjunctiva Clear Cardiovascular: Yes: Tachycardia Respiratory: Yes: CTA Bilaterally Gastrointestinal: Yes: Normal Bowel Sounds, Soft, Abdomen, Obese Genitourinary: Yes: WNL Integumentary: Yes: WNL Wound/Incision: Yes: Dressing Dry and Intact Neurological: Yes: Alert, Oriented Labs: CBC, BMP 07/01/19 14:45 07/01/19 14:45 INR, PTT INR 1.32 (0.83-1.09) H 07/01/19 02:25 Microbiology 06/28/19 04:20 Blood - Peripheral Venous Blood Culture - Preliminary NO GROWTH OBTAINED AFTER 72 HOURS, INCUBATION TO CONTINUE FOR 2 DAYS. 06/28/19 04:20 Blood - Peripheral Venous Blood Culture - Preliminary NO GROWTH OBTAINED AFTER 72 HOURS, INCUBATION TO CONTINUE FOR 2 DAYS. 06/25/19 15:45 Blood - Peripheral Venous Blood Culture - Final NO GROWTH AFTER 5 DAYS INCUBATION 06/25/19 15:45 Blood - Peripheral Venous Blood Culture - Final NO GROWTH AFTER 5 DAYS INCUBATION 06/28/19 06:00 Urine - Urine Clean Catch Urine Culture - Final NO GROWTH OBTAINED 06/23/19 22:58 Urine - Urine Clean Catch Urine Culture - Final Normal Urogenital Tiny - ....Imaging Cat Scan: Report Reviewed Problem List - Problems (1) Gallstone pancreatitis Code(s): K85.10 - BILIARY ACUTE PANCREATITIS WITHOUT NECROSIS OR INFECTION Assessment/Plan Acute pancreatitis Acute Cholecystitis/Cholangitis-- s/p lap cholecystectomy, ERCP/stone extraction POD#2 Anemia - requing blood transfusion r/o intra-op bleed ETOH abuse Obesity -- f/u multiphase CT result -- LFTs increasing, leukocytosis improved -- continue Zosyn -- continue monitor wbc, LFTs, H/H -- Surgery following -- monitor vitals closely
[2019-07-01] MEDS ORDERED: DOCUSATE SODIUM 100 MG CAPSULE (FP) PO PRN (17:22)
[2019-07-01] MEDS ORDERED: HYDROmorphone HCl 2 MG/ML VIAL IVPB PRN (17:22)
[2019-07-01] MEDS ORDERED: oxyCODONE HCL 5 MG TABLET PO PRN (17:22)
[2019-07-01] MEDS ORDERED: ONDANSETRON 4 MG/2 ML VIAL IVPUSH PRN (17:22)
[2019-07-01 21:10] LABS: HEMATOCRIT 26.7 % (32.4-45.2); HEMOGLOBIN 8.9 GM/dL (10.7-15.3); MCH 25.6 pg (25.7-33.7); MCHC 33.2 g/dl (32.0-36.0); MEAN CELL VOLUME 77.3 fl (80-96); MEAN PLT VOLUME 6.9 fl (7.5-11.1); PLATELET COUNT 346 K/MM3 (134-434); RBC 3.46 M/mm3 (3.60-5.2); RDW 17.7 % (11.6-15.6); WHITE BLOOD COUNT 13.1 K/mm3 (4.0-10.0)
--- NOTE | 2019-07-01 22:41 | PN ---
Progress Note (short form) - Note Progress Note: call center consultant resident following up preliminary CTA chest, abdomen, pelvis results from [facility]. Noted heterogeneous hyperdense fluid in perihepatic location/ pelvis concerning for intraperitoneal blood, however NO acute arterial or venous contrast extravasation to suggest active bleeding. Repeat Hemoglobin/ Hematocrit at 8.9/ 26.7 (prior values this afternoon s/p transfusion were 9.1/ 27.9). Discussed findings with Dr. Spicer, appreciate consult. Will continue monitoring hemodynamics, CBC. Will follow final radiologist read. Update 06:00 Repeat CBC hemoglobin/ hematocrit: 8.4/ 25.4. Patient's blood pressure remains stable, and heart rate remains 110-115BPM. Afebrile overnight. Her abdomen remains soft, and mildly tender to palpation, worst at incision sites. Of note, informed by nursing staff that patient is currently experiencing her menstrual period which could at least partially account for the anemia. She is passing flatus, however denies passing any bowel movements, melena or hematochezia. Will obtain LDH, Haptoglobin to evaluate for any hemolysis as alternative etiology of anemia. Will order repeat abdominal ultrasound to evaluate for intra-abdominal bleeding to compare with ultrasound performed on 06/29/2019. Case discussed with Dr. Oneil.
[2019-07-02] MEDS ORDERED: DEXTROSE 5%-WATER 100 ML IVPB ONE ×3 (00:47→16:56)
[2019-07-02] MEDS ORDERED: PIPERACILLIN/TAZOBACTAM 4.5 GM VIAL IVPB ONE ×3 (00:47→16:56)
[2019-07-02] MEDS: PIPERACILLIN/TAZOB 4.5 GM 4.5 GM in DEXTROSE 5%-WATER 100 ML IVPB SCH ×3 (01:06→17:25)
[2019-07-02 05:07] LABS: HEMATOCRIT 25.4 % (32.4-45.2); HEMOGLOBIN 8.4 GM/dL (10.7-15.3); MCH 25.6 pg (25.7-33.7); MCHC 33.2 g/dl (32.0-36.0); MEAN CELL VOLUME 77.3 fl (80-96); PLATELET COUNT 373 K/MM3 (134-434); RBC 3.29 M/mm3 (3.60-5.2); RDW 17.9 % (11.6-15.6); WHITE BLOOD COUNT 14.7 K/mm3 (4.0-10.0)
[2019-07-02 05:37] LABS: ALBUMIN 2.4 g/dl (3.4-5.0); ALK PHOS 106 U/L (45-117); ANION GAP 8 MMOL/L (8-16); BILIRUBIN,TOTAL 0.9 mg/dL (0.2-1); BLOOD UREA NITROGEN 5.3 mg/dL (7-18); CALCIUM 8.6 mg/dL (8.5-10.1); CHLORIDE 104 mmol/L (98-107); CO2 25 mmol/L (21-32); CREATININE 0.6 mg/dL (0.55-1.3); GLUCOSE,RANDOM 125 mg/dL (74-106); PHOSPHOROUS 3.9 mg/dL (2.5-4.9); POTASSIUM 3.7 mmol/L (3.5-5.1); SGOT/AST 83 U/L (15-37); SGPT/ALT 209 U/L (13-61); SODIUM 136 mmol/L (136-145); TOT PROT 6.3 g/dl (6.4-8.2)
[2019-07-02] MEDS ORDERED: MORPHINE SULFATE 2 MG/ML VIAL IVPUSH ONE (05:42)
[2019-07-02 06:13] LABS: LDH 363 U/L (84-246)
--- NOTE | 2019-07-02 09:34 | EKG ---
Test Reason : Blood Pressure : / mmHG Vent. Rate : 105 BPM Atrial Rate : 105 BPM P-R Int : 156 ms QRS Dur : 090 ms QT Int : 348 ms P-R-T Axes : 042 017 007 degrees QTc Int : 459 ms SINUS TACHYCARDIA NONSPECIFIC T WAVE ABNORMALITY ABNORMAL ECG WHEN COMPARED WITH ECG OF 29-JUN-2019 23:45, PREMATURE VENTRICULAR COMPLEXES ARE NO LONGER PRESENT Confirmed by Aron Delgado ([id number]) on 07/02/2019 9:33:57 AM Referred By: Confirmed By:Aron Delgado
--- NOTE | 2019-07-02 10:33 | EKG ---
Test Reason : Blood Pressure : / mmHG Vent. Rate : 110 BPM Atrial Rate : 110 BPM P-R Int : 154 ms QRS Dur : 086 ms QT Int : 336 ms P-R-T Axes : 047 015 001 degrees QTc Int : 454 ms POOR DATA QUALITY, INTERPRETATION MAY BE ADVERSELY AFFECTED SINUS TACHYCARDIA OTHERWISE NORMAL ECG WHEN COMPARED WITH ECG OF 01-JUL-2019 08:49, NO SIGNIFICANT CHANGE WAS FOUND Confirmed by Aron Delgado ([id number]) on 07/02/2019 10:32:57 AM Referred By: LENA Confirmed By:Aron Delgado
[2019-07-02] MEDS ORDERED: FUROSEMIDE 40 MG/4 ML INJECTABLE VIAL IVPUSH ONE (10:55)
--- NOTE | 2019-07-02 12:13 | PN ---
Progress Note, Physician - Current Medication List Current Medications: Active Medications Docusate Sodium (Colace -) 100 mg PO Q12H PRN PRN Reason: CONSTIPATION Piperacillin Sod/Tazobactam (Sod 4.5 gm/ Dextrose) 100 mls @ 200 mls/hr IVPB Q8H-IV LULU; Protocol Last Admin: 07/02/19 09:16 Dose: 200 mls/hr Ondansetron HCl (Zofran Injection) 4 mg IVPUSH Q6H PRN PRN Reason: NAUSEA AND/OR VOMITING Oxycodone HCl (Roxicodone -) 5 mg PO Q4H PRN PRN Reason: PAIN LEVEL 1-5 Last Admin: 07/02/19 09:16 Dose: 5 mg Oxycodone HCl (Roxicodone -) 10 mg PO Q4H PRN PRN Reason: PAIN LEVEL 6-10 Last Admin: 07/01/19 18:06 Dose: 10 mg - Objective Vital Signs: Vital Signs Temperature 98.7 F 07/02/19 05:35 Pulse Rate 116 H 07/02/19 05:35 Respiratory Rate 19 07/02/19 09:00 Blood Pressure 137/87 07/02/19 05:35 O2 Sat by Pulse Oximetry (%) 98 07/02/19 09:00 Labs: CBC, BMP 07/02/19 04:30 07/02/19 04:20 INR, PTT INR 1.32 (0.83-1.09) H 07/01/19 02:25
[2019-07-02 13:08] LABS: HEMATOCRIT 27.1 % (32.4-45.2); MCH 25.4 pg (25.7-33.7); MCHC 33.2 g/dl (32.0-36.0); MEAN CELL VOLUME 76.7 fl (80-96); MEAN PLT VOLUME 6.6 fl (7.5-11.1); PLATELET COUNT 419 K/MM3 (134-434); RBC 3.53 M/mm3 (3.60-5.2); RDW 18.1 % (11.6-15.6); WHITE BLOOD COUNT 16.5 K/mm3 (4.0-10.0)
[2019-07-02] MEDS: oxyCODONE HCL 5 MG TABLET PO PRN ×2 (13:49→22:21)
--- NOTE | 2019-07-02 14:27 | EKG ---
Test Reason : Blood Pressure : / mmHG Vent. Rate : 110 BPM Atrial Rate : 110 BPM P-R Int : 150 ms QRS Dur : 086 ms QT Int : 340 ms P-R-T Axes : 044 014 -16 degrees QTc Int : 460 ms SINUS TACHYCARDIA OTHERWISE NORMAL ECG WHEN COMPARED WITH ECG OF 02-JUL-2019 05:44, NO SIGNIFICANT CHANGE WAS FOUND Confirmed by Aron Delgado ([id number]) on 07/02/2019 2:26:45 PM Referred By: , Confirmed By:Aron Delgado
--- NOTE | 2019-07-02 14:48 | PN ---
Progress Note (short form) - Note Progress Note: Attending Surgeon POD## c/o tiredness VSS AF abdo-soft; port sites c/d/i; o/w negative CT late yesterday w/o active bleeding labs noted IMP: stable PLAN: Clear liquid diet and advance as tolerated; monitor h/h.
--- NOTE | 2019-07-02 14:52 | PN ---
Physical Exam: SUBJECTIVE: Patient seen and examined at bedside. she states her epigastric abdominal pain is a 5/10 and improved from overnight. denies n/v. states she is menstruating but that it isnt heavy and only needed to change pad 2x and didnt soak through yesterday. OBJECTIVE: Vital Signs Period Temp Pulse Resp BP Sys/Lewis Pulse Ox Last 24 Hr 98.0 F-98.7 F 111-118 18-20 124-159/79-90 98-98 GENERAL: The patient is awake, alert, and fully oriented, in no acute distress. HEAD: Normal with no signs of trauma. LUNGS: Breath sounds equal, clear to auscultation bilaterally, no wheezes, no crackles, no accessory muscle use. HEART: Regular rate and rhythm, S1, S2 without murmur, rub or gallop. ABDOMEN: Soft, tender to palpation of epigastric, improved exam from yesterday. nondistended, normoactive bowel sounds, no guarding, no rebound EXTREMITIES: 2+ pulses, warm, well-perfused, no edema. SKIN: Warm, dry, normal turgor, no rashes or lesions noted CBC,CMP WBC 16.5 K/mm3 (4.0-10.0) H 07/02/19 12:53 RBC 3.53 M/mm3 (3.60-5.2) L 07/02/19 12:53 Hgb 9.0 GM/dL (10.7-15.3) L 07/02/19 12:53 Hct 27.1 % (32.4-45.2) L 07/02/19 12:53 MCV 76.7 fl (80-96) L 07/02/19 12:53 MCH 25.4 pg (25.7-33.7) L 07/02/19 12:53 MCHC 33.2 g/dl (32.0-36.0) 07/02/19 12:53 RDW 18.1 % (11.6-15.6) H 07/02/19 12:53 Plt Count 419 K/MM3 (134-434) 07/02/19 12:53 MPV 6.6 fl (7.5-11.1) L 07/02/19 12:53 Absolute Neuts (auto) 9.5 K/mm3 (1.5-8.0) H 07/01/19 14:45 Total Counted 100 07/01/19 02:25 Neutrophils % 79.6 % (42.8-82.8) 07/01/19 14:45 Neutrophils % (Manual) 68.0 % (42.8-82.8) 07/01/19 14:45 Band Neutrophils % 5.0 % 07/01/19 14:45 Lymphocytes % 13.7 % (8-40) D 07/01/19 14:45 Lymphocytes % (Manual) 14.0 % (8-40) D 07/01/19 14:45 Monocytes % 5.7 % (3.8-10.2) 07/01/19 14:45 Monocytes % (Manual) 2 % (3.8-10.2) L 07/01/19 14:45 Eosinophils % 0.7 % (0-4.5) 07/01/19 14:45 Eosinophils % (Manual) 1.0 % (0-4.5) D 07/01/19 14:45 Basophils % 0.3 % (0-2.0) 07/01/19 14:45 Basophils % (Manual) 0.0 % (0-2.0) 07/01/19 14:45 Myelocytes % (Man) 5 % (0-2) H D 07/01/19 14:45 Promyelocytes % (Man) 0 % (0-2) 06/30/19 06:50 Blast Cells % (Manual) 0 % (0-0) 06/30/19 06:50 Nucleated RBC % 0 % (0-0) 07/01/19 14:45 Metamyelocytes 2 % (0-2) D 07/01/19 14:45 Hypochromia 1+ 07/01/19 02:25 Toxic Granulation 2+ 06/30/19 06:50 Platelet Estimate Adequate 07/01/19 14:45 Polychromasia 1+ 07/01/19 02:25 Poikilocytosis 1+ 06/30/19 06:50 Anisocytosis 1+ 07/01/19 02:25 Microcytosis 1+ 06/30/19 06:50 Macrocytosis 0 06/30/19 06:50 Spherocytes 1+ 06/30/19 06:50 Tear Drop Cells 1+ 06/30/19 06:50 Ovalocytes 1+ 06/30/19 06:50 Stomatocytes 1+ 06/30/19 06:50 Sodium 136 mmol/L (136-145) 07/02/19 04:20 Potassium 3.7 mmol/L (3.5-5.1) 07/02/19 04:20 Chloride 104 mmol/L (98-107) 07/02/19 04:20 Carbon Dioxide 25 mmol/L (21-32) 07/02/19 04:20 Anion Gap 8 MMOL/L (8-16) 07/02/19 04:20 BUN 5.3 mg/dL (7-18) L 07/02/19 04:20 Creatinine 0.6 mg/dL (0.55-1.3) 07/02/19 04:20 Est GFR (CKD-EPI)AfAm 146.83 07/02/19 04:20 Est GFR (CKD-EPI)NonAf 126.68 07/02/19 04:20 Random Glucose 125 mg/dL (74-106) H 07/02/19 04:20 Hemoglobin A1c % 5.3 % (4.2-6.3) 06/29/19 06:25 Lactic Acid 1.1 mmol/L (0.4-2.0) 06/26/19 07:19 Calcium 8.6 mg/dL (8.5-10.1) 07/02/19 04:20 Phosphorus 3.9 mg/dL (2.5-4.9) 07/02/19 04:20 Magnesium 2.2 mg/dL (1.8-2.4) 06/30/19 06:50 Iron 14 ug/dL (50-175) L 06/28/19 06:40 TIBC 257 ug/dL (250-450) 06/28/19 06:40 Iron Saturation 5 % (17.5-39) L 06/28/19 06:40 Unsaturated IBC 243 ug/dL (200-275) 06/28/19 06:40 Ferritin 176.8 ng/ml (8-388) 06/28/19 06:40 Total Bilirubin 0.9 mg/dL (0.2-1) 07/02/19 04:20 Direct Bilirubin 0.6 mg/dL (0.0-0.2) H 06/27/19 06:30 AST 83 U/L (15-37) H 07/02/19 04:20 ALT 209 U/L (13-61) H 07/02/19 04:20 Alkaline Phosphatase 106 U/L (45-117) 07/02/19 04:20 LD Total 363 U/L (84-246) H 07/02/19 04:20 Troponin I < 0.02 ng/ml (0.00-0.05) 07/02/19 04:20 C-Reactive Protein 11.0 MG/DL (0.00-0.3) H 07/01/19 14:45 Total Protein 6.3 g/dl (6.4-8.2) L 07/02/19 04:20 Albumin 2.4 g/dl (3.4-5.0) L 07/02/19 04:20 Triglycerides 42 mg/dL (0-150) 06/24/19 07:30 Cholesterol 122 mg/dL (50-200) 06/24/19 07:30 Total LDL Cholesterol 62 mg/dL (5-100) 06/24/19 07:30 HDL Cholesterol 52 mg/dL (40-60) 06/24/19 07:30 Total Amylase 28 U/L (25-115) 07/01/19 14:45 Lipase 96 U/L (73-393) 06/27/19 06:30 Beta HCG, Quant < 1.0 mIU/ml 06/23/19 19:59 Current Medications Docusate Sodium (Colace -) 100 mg PO Q12H PRN PRN Reason: CONSTIPATION Piperacillin Sod/Tazobactam (Sod 4.5 gm/ Dextrose) 100 mls @ 200 mls/hr IVPB Q8H-IV LULU; Protocol Last Admin: 07/02/19 09:16 Dose: 200 mls/hr Ondansetron HCl (Zofran Injection) 4 mg IVPUSH Q6H PRN PRN Reason: NAUSEA AND/OR VOMITING Oxycodone HCl (Roxicodone -) 5 mg PO Q4H PRN PRN Reason: PAIN LEVEL 1-5 Last Admin: 07/02/19 09:16 Dose: 5 mg Oxycodone HCl (Roxicodone -) 10 mg PO Q4H PRN PRN Reason: PAIN LEVEL 6-10 Last Admin: 07/02/19 13:49 Dose: 10 mg ASSESSMENT/PLAN: 23 yo F PMH of hiradrenitis suppurtica, obesity , hx of alcohol abuse presented to ED for abdominal pain. Pt is admitted for acute pancreatitis. Sepsis 2/2 Acute pancreatitis 2/2 choledocolithiasis - CTA/P reviewed: diffuse pancreatic inflammation and peripancreatic fluid c/w pancreatitis, no abscess or pseudocyst. rpt CT done. -RUQ US shows cholelithiasis, minimal to mild diffuse gallbladder wall edema, no biliary ductal dilatation, hepatic steatosis, acute pancreatitis - s/p cholecystectomy 06/29/2019. EBL 5 - pain control with oxycodone. zofran for nausea - hold off on fluids as pt is getting overloaded. will give lasix 40 IV once - Continue Zosyn day 9 - ERCP 06/26, 3 stones removed from distal CBD - GI following ( Dr. Hernándze) - Lipase 96, improved -leukocytosis increased today Anemia -h/h stable today at 9, improved from yesterday. - rpt H/H at 20:00 Morbid obesity -BMI 45.7 - counselled on diet and exercise DVT ppx: early ambulation. hold chemical ppx in setting of acute drop in H/H Dispo: continue med/ surg Visit type - Emergency Visit Emergency Visit: No - New Patient This patient is new to me today: No - Critical Care Critical Care patient: No - Discharge Referral Referred to [facility] No ATTENDING PHYSICIAN STATEMENT I saw and evaluated the patient. I reviewed the resident's note and discussed the case with the resident. I agree with the resident's findings and plan as documented. SUBJECTIVE: OBJECTIVE: ASSESSMENT AND PLAN:
--- NOTE | 2019-07-02 15:27 | PN ---
Teaching Attending Note Name of Resident: Reba Yee ATTENDING PHYSICIAN STATEMENT I saw and evaluated the patient. I reviewed the resident's note and discussed the case with the resident. I agree with the resident's findings and plan as documented. SUBJECTIVE: seen at 8 am No fever or chills. no WALTON , abd pain si better , no N/V . hungry and wants to eat . no events last night . had Ct done upset and wants to shower . wants to avoid more tests if possible OBJECTIVE: NAD, awake, alert, cooperative. emotional and tearful. CV: Regular rate, slightly tachy ( 100) Lungs: improved areation of the bases . no crackles Abd: obese, soft, ND. NL BS. tape on the laparoscopic wounds. TTP in epigastric and RUQ Ext: No edema or erythema ASSESSMENT AND PLAN: 23 y/o lady with h/o alcohol use, and hydradenitis suppurativa who presented with abd pain and was found to have acute pancreatitis 1- Acute pancreatitis 2- Sepsis 3- Ascending cholangitis , s/p ERCP and removal of stones . 4- Acute blood loss anemia. r/o intra-abdominal bleed 5- Tachycardia . 6- s/p cholecystectomy 06/29/19 7- Ascitis and pleural effusions Plan: - CTA of Abd /pelvis prelim report was reviewed. fluid density in abd might suggest bleeding but no active bleed is seen. - d/W Dr. Spicer No intervention - start clears. - monitor HB this evening - cont Zosyn - give a dose of lasix. - hold chemical DVT PX. SCDs. - dc the US ordered last night - allow shower in sitting position
--- NOTE | 2019-07-02 15:29 | PN ---
Progress Note (short form) - Note Progress Note: GI f/u PT had a big bm just now and abd pain improved No N/V Vital Signs Temp 98.6 F 07/02/19 13:34 Pulse 111 H 07/02/19 13:34 Resp 18 07/02/19 13:34 BP 159/82 07/02/19 13:34 Pulse Ox 98 07/02/19 09:00 NAD abd soft, obese, appropriately tender CBC, BMP 07/02/19 12:53 07/02/19 04:20 Hepatic Panel Total Bilirubin 0.9 mg/dL (0.2-1) 07/02/19 04:20 Direct Bilirubin 0.6 mg/dL (0.0-0.2) H 06/27/19 06:30 AST 83 U/L (15-37) H 07/02/19 04:20 ALT 209 U/L (13-61) H 07/02/19 04:20 Alkaline Phosphatase 106 U/L (45-117) 07/02/19 04:20 Albumin 2.4 g/dl (3.4-5.0) L 07/02/19 04:20 gallstone pancreatitis s/p ERCP with stone extraction s/p lap antony 06/29 Can advance to full liquids Continue to trend LFTs daily until normalize
[2019-07-03] MEDS ORDERED: DEXTROSE 5%-WATER 100 ML IVPB ONE ×3 (00:13→17:12)
[2019-07-03] MEDS ORDERED: PIPERACILLIN/TAZOBACTAM 4.5 GM VIAL IVPB ONE ×3 (00:13→17:11)
[2019-07-03] MEDS: PIPERACILLIN/TAZOB 4.5 GM 4.5 GM in DEXTROSE 5%-WATER 100 ML IVPB SCH ×3 (01:05→18:42)
[2019-07-03] MEDS: oxyCODONE HCL 5 MG TABLET PO PRN ×2 (06:30→14:45)
[2019-07-03 07:45] LABS: HEMATOCRIT 26.2 % (32.4-45.2); HEMOGLOBIN 8.5 GM/dL (10.7-15.3); MCH 25.2 pg (25.7-33.7); MCHC 32.5 g/dl (32.0-36.0); MEAN CELL VOLUME 77.3 fl (80-96); MEAN PLT VOLUME 6.8 fl (7.5-11.1); PLATELET COUNT 386 K/MM3 (134-434); RBC 3.39 M/mm3 (3.60-5.2); RDW 18.5 % (11.6-15.6); WHITE BLOOD COUNT 18.5 K/mm3 (4.0-10.0)
--- NOTE | 2019-07-03 07:49 | PN ---
Progress Note (short form) - Note Progress Note: GENERAL SURGERY POD #4 No acute events per RN notes. Patient sitting in chair at bedside. States she is OOB and ambulating unassisted. + flatus, + bm's Tolerating clear liquid diet CTA scan 07/01/19 identified acute perihepatic hematoma butno active bleeding Denies n/f/v, CP, SOB, LOPEZ, weak, dizzy or tired. Last Vital Signs Temp Pulse Resp BP Pulse Ox 99.1 F 106 H 18 124/67 96 07/03/19 05:58 07/03/19 05:58 07/03/19 05:58 07/03/19 05:58 07/02/19 20:53 Trends 07/01/19 07/02/19 07/02/19 07/03/19 21:00 04:30 12:53 07:09 WBC 13.1 14.7 16.5 18.5 Hgb 8.9 8.4 9.0 8.5 Hct 26.7 25.4 27.1 26.2 Gen: nad ABD: obese habitus. all surgical ports c/d/i. no palpable hematomas. no evidence of infection LE: soft. nt. SCDs bilat Problem List - Problems (1) Gallstone pancreatitis Assessment/Plan: POD #4 s/p Laprascopic Cholecystestomy 1. Advance diet 2. Cont OOB and ambulate 3. Trend her WBC as it's trending up 4. Trend H/H and transfuse pRBC to normal threshold PRN 5. Cont medical management Above plan discussed with Dr. Spicer and agrees. Code(s): K85.10 - BILIARY ACUTE PANCREATITIS WITHOUT NECROSIS OR INFECTION
[2019-07-03 08:11] LABS: ALBUMIN 2.4 g/dl (3.4-5.0); BILIRUBIN,TOTAL 0.8 mg/dL (0.2-1); BLOOD UREA NITROGEN 6.8 mg/dL (7-18); CALCIUM 8.5 mg/dL (8.5-10.1); CREATININE 0.6 mg/dL (0.55-1.3); POTASSIUM 3.8 mmol/L (3.5-5.1); TOT PROT 6.5 g/dl (6.4-8.2)
--- NOTE | 2019-07-03 15:48 | PATH ---
Surgical Pathology Report Patient Name: ROHINI ARCHULETA [facility]. Rec. #: [id number] /Age/Gender: 1995 (Age: 23) / F Account: [id number] Location: [facility] PEDS/ADOL Taken: 06/29/2019 Received: 07/02/2019 Reported: 07/03/2019 Physicians: Brendon Spicer MD Specimen(s) Received GALLBLADDER Clinical History Choledocholithiasis, cholecystitis Final Diagnosis GALLBLADDER, LAPAROSCOPIC CHOLECYSTECTOMY: CHRONIC CHOLECYSTITIS WITH CHOLELITHIASIS. Electronically Signed Kandice Burris M.D. Gross Description Received in formalin, labeled "gallbladder," is a 5.8 x 2.7 x 2.2 cm. gallbladder with a 0.2 cm. in length portion of cystic duct attached. The outer surface is hyman-cates with a focal defect and varies from smooth to shaggy. The lumen contains green, tenacious bile as well as abundant yellow choleliths ranging from 0.2-1.3 cm in greatest dimension. The mucosa is green and velvety. The wall of the gallbladder averages 0.1 cm. in thickness. Supervisor Offset Plate Preparation sections are submitted in one cassette. 07/02/2019 [facility]07/02/2019
--- NOTE | 2019-07-03 17:52 | PN.GI ---
GI Progress Note Subjective: Sitting up, states feeling well S/P Lap Joanna 06/29 - Objective Vital Signs: Vital Signs Temperature 98.2 F 07/03/19 14:00 Pulse Rate 105 H 07/03/19 14:00 Respiratory Rate 18 07/03/19 14:00 Blood Pressure 163/85 07/03/19 14:00 O2 Sat by Pulse Oximetry (%) 97 07/03/19 09:00 Constitutional: Calm Eyes: No: Sclera Icterus Cardiovascular: Yes: Tachycardia Respiratory: Yes: Diminished (at bases bilaterally) Gastrointestinal Inspection: Yes: Scars (Dressed trochar scars). No: Distention ...Auscultate: Yes: Normoactive Bowel Sounds ...Palpate: Yes: Soft. No: Hepatomegaly, Splenomegaly, Tenderness Labs: CBC, BMP 07/03/19 07:09 07/03/19 07:09 INR, PTT INR 1.32 (0.83-1.09) H 07/01/19 02:25 Problem List - Problems (1) Gallstone pancreatitis Assessment/Plan: S/P Lap Joanna Clinically improved LFTs normalizing Post op care per surgery Code(s): K85.10 - BILIARY ACUTE PANCREATITIS WITHOUT NECROSIS OR INFECTION
--- NOTE | 2019-07-03 18:11 | PN ---
Physical Exam: SUBJECTIVE: Patient seen and examined at bedside. she states her pain is improving. she denies SOB or chest pain. she states she is having anxiety from being here and wakes up short of breath with palpitations OBJECTIVE: Vital Signs Period Temp Pulse Resp BP Sys/Lewis Pulse Ox Last 24 Hr 98.2 F-99.1 F 105-123 18-18 124-163/63-85 96-97 GENERAL: The patient is awake, alert, and fully oriented, in no acute distress. LUNGS: Breath sounds equal, clear to auscultation bilaterally, no wheezes, no cr ackles, no accessory muscle use. HEART: Regular rate and rhythm, S1, S2 without murmur, rub or gallop. ABDOMEN: Soft, nontender, nondistended, normoactive bowel sounds, no guarding EXTREMITIES: 2+ pulses, warm, well-perfused, no edema. SKIN: Warm, dry, normal turgor, no rashes or lesions noted Laboratory Results - last 24 hr 07/02/19 07/03/19 07/03/19 04:20 07:09 07:09 WBC 18.5 H RBC 3.39 L Hgb 8.5 L Hct 26.2 L MCV 77.3 L MCH 25.2 L MCHC 32.5 RDW 18.5 H Plt Count 386 MPV 6.8 L Haptoglobin 558 H Sodium 139 Potassium 3.8 Chloride 105 Carbon Dioxide 26 Anion Gap 9 BUN 6.8 L Creatinine 0.6 Est GFR (CKD-EPI)AfAm 146.83 Est GFR (CKD-EPI)NonAf 126.68 Random Glucose 143 H Calcium 8.5 Total Bilirubin 0.8 AST 74 H ALT 205 H Alkaline Phosphatase 109 Total Protein 6.5 Albumin 2.4 L Current Medications Docusate Sodium (Colace -) 100 mg PO Q12H PRN PRN Reason: CONSTIPATION Piperacillin Sod/Tazobactam (Sod 4.5 gm/ Dextrose) 100 mls @ 200 mls/hr IVPB Q8H-IV LULU; Protocol Last Admin: 07/03/19 09:32 Dose: 200 mls/hr Oxycodone HCl (Roxicodone -) 5 mg PO Q4H PRN PRN Reason: PAIN LEVEL 1-5 Last Admin: 07/02/19 09:16 Dose: 5 mg Oxycodone HCl (Roxicodone -) 10 mg PO Q4H PRN PRN Reason: PAIN LEVEL 6-10 Last Admin: 07/03/19 14:45 Dose: 10 mg ASSESSMENT/PLAN: 23 yo F PMH of hiradrenitis suppurtica, obesity , hx of alcohol abuse presented to ED for abdominal pain. Pt is admitted for acute pancreatitis. Acute pancreatitis 2/2 choledocolithiasis - CTA/P reviewed: diffuse pancreatic inflammation and peripancreatic fluid c/w pancreatitis, no abscess or pseudocyst. rpt CT reviewed. -RUQ US shows cholelithiasis, minimal to mild diffuse gallbladder wall edema, no biliary ductal dilatation, hepatic steatosis, acute pancreatitis - s/p cholecystectomy 06/29/2019. EBL 5 - pain control with oxycodone. zofran for nausea - hold off on fluids as pt is getting overloaded. - Continue Zosyn day 10. will plan to change tomorrow for possible DC - ERCP 06/26, 3 stones removed from distal CBD - GI following ( Dr. Hernández) - Lipase 96, improved -leukocytosis increased today Anemia -h/h stable today at 9, improved from yesterday. Morbid obesity -BMI 45.7 - counselled on diet and exercise DVT ppx: early ambulation. hold chemical ppx in setting of acute drop in H/H Dispo: continue med/ surg Visit type - Emergency Visit Emergency Visit: No - New Patient This patient is new to me today: No - Critical Care Critical Care patient: No - Discharge Referral Referred to [facility] No ATTENDING PHYSICIAN STATEMENT I saw and evaluated the patient. I reviewed the resident's note and discussed the case with the resident. I agree with the resident's findings and plan as documented. SUBJECTIVE: OBJECTIVE: ASSESSMENT AND PLAN:
--- NOTE | 2019-07-03 19:05 | PN ---
Teaching Attending Note Name of Resident: Reba Yee ATTENDING PHYSICIAN STATEMENT I saw and evaluated the patient. I reviewed the resident's note and discussed the case with the resident. I agree with the resident's findings and plan as documented. SUBJECTIVE: seen at about 10 am No fever or chills. abd pain much improved . no SOB . she feels much better today walked in hallway OBJECTIVE: NAD, awake, alert, cooperative. CV: Regular rate, slightly tachy ( 110) Lungs: improved areation of the bases . no crackles Abd: obese, soft, ND. NL BS. steri strips on laparoscopic wounds .minimal discomfort in epigastric area Ext: No edema or erythema ASSESSMENT AND PLAN: 23 y/o lady with h/o alcohol use, and hydradenitis suppurativa who presented with abd pain and was found to have acute pancreatitis 1- Acute pancreatitis 2- Sepsis 3- Ascending cholangitis , s/p ERCP and removal of stones . 4- Acute blood loss anemia/ intra-abdominal bleed 5- Sinus Tachycardia . 6- S/p cholecystectomy 06/29/19 7- Ascitis and pleural effusions Plan: - improved - Hb stable - advance diet to low fat - cont zosyn - suspect elevation in WBC due to the bleed - cont SCDs not chemical PPX
[2019-07-04] MEDS: oxyCODONE HCL 5 MG TABLET PO PRN (00:08)
[2019-07-04] MEDS ORDERED: DEXTROSE 5%-WATER 100 ML IVPB ONE ×2 (02:09→11:26)
[2019-07-04] MEDS ORDERED: PIPERACILLIN/TAZOBACTAM 4.5 GM VIAL IVPB ONE ×2 (02:09→11:26)
[2019-07-04] MEDS: PIPERACILLIN/TAZOB 4.5 GM 4.5 GM in DEXTROSE 5%-WATER 100 ML IVPB SCH ×2 (02:43→11:27)
[2019-07-04 06:45] LABS: HEMATOCRIT 25.9 % (32.4-45.2); HEMOGLOBIN 8.5 GM/dL (10.7-15.3); MCH 25.6 pg (25.7-33.7); MCHC 32.9 g/dl (32.0-36.0); MEAN CELL VOLUME 77.8 fl (80-96); MEAN PLT VOLUME 6.9 fl (7.5-11.1); PLATELET COUNT 406 K/MM3 (134-434); RBC 3.33 M/mm3 (3.60-5.2); RDW 18.6 % (11.6-15.6); WHITE BLOOD COUNT 14.6 K/mm3 (4.0-10.0)
--- NOTE | 2019-07-04 08:35 | PN ---
Progress Note (short form) - Note Progress Note: POD#5 Pt without nausea/emesis with regular diet. Passed 1 large BM and several small stools. OOB and ambulating. Vital Signs Period Temp Pulse Resp BP Sys/Lewis Pulse Ox Last 24 Hr 98.2 F-99.5 F 105-124 18-19 128-163/63-85 97-97 GEN: A&0x3 NAD Cv; mild tachcradia Lungs: CTA b/l ABD: soft, non-distended, inc tenderness. Inc c/d/i CBC, BMP 07/04/19 05:50 07/03/ 07:09 A/p: 23 yo female s/p lap antony, mild tachycardia Transfuse as per the medical team, recommend to start iron supplements Continue oral diet, OOB and ambulate Pt may shower as needed, discharge instructions completed for follow up with Dr. Spicer
--- NOTE | 2019-07-04 08:43 | PN ---
Teaching Attending Note Name of Resident: Reba Yee ATTENDING PHYSICIAN STATEMENT I saw and evaluated the patient. I reviewed the resident's note and discussed the case with the resident. I agree with the resident's findings and plan as documented. SUBJECTIVE: patient is feeling better with no acute distress. No fever or chills. Wants to go home. DOES NOT WANT TO STAY. Vital Signs Temperature 98.8 F 07/04/19 06:58 Pulse Rate 108 H 07/04/19 06:58 Respiratory Rate 19 07/04/19 06:58 Blood Pressure 141/78 07/04/19 06:58 O2 Sat by Pulse Oximetry (%) 97 07/03/19 21:00 GENERAL: The patient is awake, alert, and fully oriented, in no acute distress. HEAD: Normal with no signs of trauma. EYES: PERRL, extraocular movements intact, sclera anicteric, conjunctiva clear. ENT: Ears normal, oropharynx clear without exudates, moist mucous membranes. NECK: Trachea midline, full range of motion, supple. LUNGS: Breath sounds equal, clear to auscultation bilaterally, no wheezes, no crackles, no accessory muscle use. HEART: Regular rate and rhythm, S1, S2 without murmur, rub or gallop. ABDOMEN: Soft, nt, nd, normoactive bowel sounds, no guarding, no rebound, no hepatosplenomegaly, no masses. EXTREMITIES: 2+ pulses, warm, well-perfused, no edema. NEUROLOGICAL: Cranial nerves II through XII grossly intact. Normal speech, gait not observed. PSYCH: Normal mood, normal affect. SKIN: Warm, dry, normal turgor, no rashes or lesions noted CBCD WBC 14.6 K/mm3 (4.0-10.0) H 07/04/19 05:50 RBC 3.33 M/mm3 (3.60-5.2) L 07/04/19 05:50 Hgb 8.5 GM/dL (10.7-15.3) L 07/04/19 05:50 Hct 25.9 % (32.4-45.2) L 07/04/19 05:50 MCV 77.8 fl (80-96) L 07/04/19 05:50 MCHC 32.9 g/dl (32.0-36.0) 07/04/19 05:50 RDW 18.6 % (11.6-15.6) H 07/04/19 05:50 Plt Count 406 K/MM3 (134-434) 07/04/19 05:50 MPV 6.9 fl (7.5-11.1) L 07/04/19 05:50 CMP Sodium 139 mmol/L (136-145) 07/03/19 07:09 Potassium 3.8 mmol/L (3.5-5.1) 07/03/19 07:09 Chloride 105 mmol/L (98-107) 07/03/19 07:09 Carbon Dioxide 26 mmol/L (21-32) 07/03/19 07:09 Anion Gap 9 MMOL/L (8-16) 07/03/19 07:09 BUN 6.8 mg/dL (7-18) L 07/03/19 07:09 Creatinine 0.6 mg/dL (0.55-1.3) 07/03/19 07:09 Random Glucose 143 mg/dL (74-106) H 07/03/19 07:09 Calcium 8.5 mg/dL (8.5-10.1) 07/03/19 07:09 Total Bilirubin 0.8 mg/dL (0.2-1) 07/03/19 07:09 AST 74 U/L (15-37) H 07/03/19 07:09 ALT 205 U/L (13-61) H 07/03/19 07:09 Alkaline Phosphatase 109 U/L (45-117) 07/03/19 07:09 Total Protein 6.5 g/dl (6.4-8.2) 07/03/19 07:09 Albumin 2.4 g/dl (3.4-5.0) L 07/03/19 07:09 CARDIAC ENZYMES Troponin I < 0.02 ng/ml (0.00-0.05) 07/02/19 04:20 Current Medications Generic Name Dose Route Start Last Admin Trade Name Freq PRN Reason Stop Dose Admin Docusate Sodium 100 mg 07/01/19 17:22 Colace - PO Q12H PRN CONSTIPATION Piperacillin Sod/Tazobactam 100 mls @ 200 mls/hr 07/01/19 18:00 07/04/19 02: 43 Sod 4.5 gm/ Dextrose IVPB 200 mls/hr Q8H-IV LULU Administration Protocol Oxycodone HCl 5 mg 07/01/19 17:22 07/02/19 09:16 Roxicodone - PO 5 mg Q4H PRN Administration PAIN LEVEL 1-5 Oxycodone HCl 10 mg 07/01/19 17:22 07/04/19 00:08 Roxicodone - PO 10 mg Q4H PRN Administration PAIN LEVEL 6-10 Home Medications Medication Instructions Recorded Vitamins (Sjr) - 1 tab PO DAILY 12/05/18 Ferrous Sulfate [Feosol] 325 mg PO DAILY 01/15/19 Microbiology 06/28/19 04:20 Blood - Peripheral Venous Blood Culture - Final NO GROWTH AFTER 5 DAYS INCUBATION 06/28/19 04:20 Blood - Peripheral Venous Blood Culture - Final NO GROWTH AFTER 5 DAYS INCUBATION 06/25/19 15:45 Blood - Peripheral Venous Blood Culture - Final NO GROWTH AFTER 5 DAYS INCUBATION 06/25/19 15:45 Blood - Peripheral Venous Blood Culture - Final NO GROWTH AFTER 5 DAYS INCUBATION 06/28/19 06:00 Urine - Urine Clean Catch Urine Culture - Final NO GROWTH OBTAINED 06/23/19 22:58 Urine - Urine Clean Catch Urine Culture - Final Normal Urogenital Tiny Assessment and plan: Patient is a 23yof with Pmhx of alcohol use, and hydradenitis suppurativa who presented with abd pain and was found to have acute pancreatitis #s/p Acute pancreatitis with ascending cholangitis improving on IV antibiotics zosyn , as per ID since patient does not want to stay to the hospital will send her prescriptions with Flagyl and levaquin , suggested to no drink any alcohol with Flagyl , follow up with surgeon since had a cholecystectomy. CT Abdomen and pelvis: s/p cholecystectomy. perihepatic hematoma is seen laterally without change. No gross specific bleeding site as a result of body habitus. soft tissue stranding is seen within lesser sac which could be the basis of acute pancreatitis. # Sepsis on IV Zosyn , now on po levaquin and flagyl suggested no alcohol with flagyl. # Ascending cholangitis , s/p ERCP and removal of stones , will send her out with po antibiotics. follow up with the surgeon and clinic And GI for further care and follow up. discussed with the patient before her discharge, patient understands and has no further questions and will follow up with her PMD and surgeon, and explained to her the importance of the follow up CT of abdomen and pelvis and also was suggested to drink plenty of fluid and follow up LFTs,CBCs lesa week. # Acute blood loss anemia/ intra-abdominal bleed as per CT, hemoglobin is stable , no further bleed noted. # Sinus Tachycardia ;suspect elevation in WBC due to the bleed # S/p cholecystectomy 06/29/19 , follow up with the surgeon. # Ascitis and pleural effusions # Acute transaminitis: trending down, follow up with outpatient clinic for repeaT lfTS AND CBc with CT scan abdomen and pelvis. advance diet to low fat, low carb, low fat diet, and no sugar. DVT px: SCDs not chemical PPX
--- NOTE | 2019-07-04 13:19 | PN.GI ---
GI Progress Note Subjective: No abdominal pain. Tolerating regular diet. Anxious to go home. - Objective Vital Signs: Vital Signs Temperature 98.5 F 07/04/19 09:22 Pulse Rate 108 H 07/04/19 09:22 Respiratory Rate 19 07/04/19 09:22 Blood Pressure 129/63 07/04/19 09:22 O2 Sat by Pulse Oximetry (%) 98 07/04/19 09:00 Labs: CBC, BMP 07/04/19 05:50 07/03/19 07:09 INR, PTT INR 1.32 (0.83-1.09) H 07/01/19 02:25 Assessment/Plan Slightly rising ALT following lap antony. Suggest Follow serial liver chemistries.
[2019-07-04 13:45] VITALS: BP 152/90; PULSE 110; TEMP 98.9
--- NOTE | 2019-07-04 14:08 | PN ---
Progress Note, Physician - Current Medication List Current Medications: Active Medications Docusate Sodium (Colace -) 100 mg PO Q12H PRN PRN Reason: CONSTIPATION Piperacillin Sod/Tazobactam (Sod 4.5 gm/ Dextrose) 100 mls @ 200 mls/hr IVPB Q8H-IV LULU; Protocol Last Admin: 07/04/19 11:27 Dose: 200 mls/hr Oxycodone HCl (Roxicodone -) 5 mg PO Q4H PRN PRN Reason: PAIN LEVEL 1-5 Last Admin: 07/02/19 09:16 Dose: 5 mg Oxycodone HCl (Roxicodone -) 10 mg PO Q4H PRN PRN Reason: PAIN LEVEL 6-10 Last Admin: 07/04/19 00:08 Dose: 10 mg - Objective Vital Signs: Vital Signs Temperature 98.9 F 07/04/19 13:43 Pulse Rate 110 H 07/04/19 13:43 Respiratory Rate 16 07/04/19 13:43 Blood Pressure 152/90 07/04/19 13:43 O2 Sat by Pulse Oximetry (%) 98 07/04/19 09:00 Labs: CBC, BMP 07/04/19 05:50 07/03/19 07:09 INR, PTT INR 1.32 (0.83-1.09) H 07/01/19 02:25
--- NOTE | 2019-07-04 14:59 | DS ---
Physical Exam: SUBJECTIVE: Patient seen and examined at bedside. pt states she is feeling better and that her pain is improved. Pt denies n/v/d. OBJECTIVE: Vital Signs Period Temp Pulse Resp BP Sys/Lewis Pulse Ox Last 24 Hr 98.2 F-99.5 F 107-124 16-19 128-152/63-90 97-98 PHYSICAL EXAM GENERAL: The patient is awake, alert, and fully oriented, in no acute distress. HEAD: Normal with no signs of trauma. LUNGS: Breath sounds equal,decreased at bases, no accessory muscle use. HEART: Regular rate and rhythm, S1, S2 without murmur, rub or gallop. ABDOMEN: Soft, nontender, nondistended, normoactive bowel sounds, no guarding EXTREMITIES: 2+ pulses, warm, well-perfused, no edema. SKIN: Warm, dry, normal turgor, no rashes or lesions noted. LABS Laboratory Results - last 24 hr 06/30/19 07/04/19 16:10 05:50 WBC 14.6 H RBC 3.33 L Hgb 8.5 L Hct 25.9 L MCV 77.8 L MCH 25.6 L MCHC 32.9 RDW 18.6 H Plt Count 406 MPV 6.9 L Blood Type O POSITIVE Antibody Screen Negative Crossmatch See Detail Abdomen/ Pelvis CTA: IMPRESSION: In comparison to a CT exam performed 11 hours earlier note is made of increased slightly hyperdense free fluid within the pelvis suggestive of a hemoperitoneum. The remainder of the exam demonstrates no obvious interval change allowing for limited soft tissue detail associated with body habitus. An acute perihepatic hematoma is noted laterally with a thickness of approximately 3.4 cm. Size comparison with the previous exam is difficult due to technical differences between the exams. Status post cholecystectomy. Lesser sac soft tissue stranding is again seen. Clinical/ laboratory correlation is suggested in regards to possible acute pancreatitis. Diffuse hepatic steatosis. Mild splenomegaly. Chest CT Impression: CT chest demonstrating symmetric nonloculated layering bibasilar moderate degree pleural effusions. No suspicious findings in the trachea or main bronchi which are patent. Suspect compressive atelectasis in both lung bases due to overlying pleural effusions. No signs of pneumonia in the aerated lung segments in the upper lobes including the right middle lobe and lingula. Clinical correlation and follow-up monitoring recommended. CT abdomen / pelvis w/o Contras:Impression: Postoperative CT scan showing no free air with presence of bibasilar pleural effusions and free fluid in the abdomen and pelvis, the density of the free fluid is more suggestive of transudative fluid than blood and the differential diagnosis could include free fluid due to pancreatitis versus the possibility of a bile leak. On-call radiologist has reviewed findings with the referring provider and recommendation is multiphase contrast ct scan to evaluate for any active bleeding in view of the decreasing hemoglobin despite blood product administration. abdomen u/s IMPRESSION: 1. Minimal postoperative fluid within the gallbladder fossa. No discrete abscess. 2. Hepatomegaly with diffuse fatty infiltration of the liver. Please see above discussion. CT abdomen/ pelvis: IMPRESSION: 1. Development of bilateral pleural effusions and bibasilar atelectasis, left greater than right, since 06/23/2019. 2. Slight improvement in peripancreatic inflammation and free fluid. 3. No evidence of pancreatic necrosis, pseudocyst or abscess formation. 4. Edematous changes within the subcutaneous fatty tissues of the abdomen and pelvis. Clinical correlation and continued follow-up recommended. Please see above discussion. initial CT abdomen /pelvis w/ contrast: IMPRESSION: Diffuse pancreatic inflammation and peripancreatic fluid consistent with pancreatitis. No abscess or pseudocyst formation identified. HOSPITAL COURSE: Date of Admission:06/23/19 23 yo F PMH of hiradrenitis suppurtica, obesity , hx of alcohol abuse presented to ED for abdominal pain. Pt is admitted for acute pancreatitis likely 2/[address] Pt [address] scans showing diffuse pancreatic inflammation and peripancreatic fluid c/w pancreatitis, no abscess or pseudocyst. pt had repeat CT scans showing above findings. During hospital course, pt had ERCP with 3 stones removed. Pt also had a cholecystectomy. Pt became anemic post op, requiring 2 U pRBC. pt rpt CBC remained stable following transfusion and rpt CT scans did not show acute bleed. Pt was maintained on zosyn for 10 days and was discharged on flagyl and levaquin. pt counselled on importance of diet and abstinence from fatty foods, high carb and high sugar food. Pt is advised to have close follow up with PMD, GI, and ID. PT should have rpt CBC, CMP, and CT abdomen pelvis next week. Date of Discharge: 07/04/19 Minutes to complete discharge: 36 Discharge Summary Problems reviewed: Yes Reason For Visit: ABDOMINAL PAIN/ VOMITING Condition: Improved - Instructions Diet, Activity, Other Instructions: You came into the hospital for abdominal pain. You had a cat scan showing that you had acute pancreatitis. You also had an ERCP which showed that you had gallstones which likely caused your pancreatitis. While you were in the hospital you had a cholecystectomy, a surgery to take out your gallbladder. You were treated with antibiotics and monitored very closely. You should continue to use your incentive spirometer at home to help keep your airway open. Medications: WE have started you on these medications, please continue to take them: Flagyl 500 mg every 8 hours for one week. PLEASE DO NOT TAKE ANY ALCOHOL WITH THIS MEDICATION, YOU WILL HAVE A SEVERE REACTION. YOU CANNOT DRINK EVEN AFTER COMPLETION OF THE MEDICATION FOR 3 DAYS AFTERWARD. Levaquin 500 mg daily for one week. Drink lots of fluid. STAY AWAY FROM SUGAR, CARBOHYDRATE, HIGH FATTY FOOD, FRIED FOOD. Please follow up with your primary care physician, attached is a referral to our resident's clinic. You will need to have your complete metabolic and blood counts repeated in one week. TO CHECK ON YOUR LIVER FUNCTION. Please follow up with your tangled yarn spool straightener, Dr. Rich , to monitor your improvement after your pancreatitis. Please follow up with your infectious disease doctor, Dr. Strauss, to monitor your improvement with your antibiotics. It is very important for you to continue to follow a low fat diet. You should also exercise to help you maintain a healthy lifestyle. If you have any new, worsening, or concerning symptoms, particularly abdominal pain, diarrhea, fevers or chills please return to the ED or call 911. REPEAT CAT SCAN OF ABDOMEN AND PELVIS IN A WEEK TO FURTHER ACCESS THE ABDOMEN AND PELVIS. Dear ROHINI ARCHULETA, Post Operative Instructions Physical activity Resume your normal everyday activity as tolerated no heavy lifting or exercise until seen by your surgeon. You may walk unlimited amounts of and climb stairs. You may resume driving the car when you feel safe and comfortable behind the wheel. Wound care If there are tapes on the skin under the outer bandage, leave them in place. They will peel off in the next 7 to 10 days. Do Not peel them off. If there are tapes present on the skin, they can get wet. Pain management You may take Tylenol or acetaminophen or Ibuprofen (for example.) Any pain prescription medication ordered should be taken as prescribed for moderate to severe pain. Call Dr. Spicer for any of the following: Severe pain not relieved by medication Fever of 101 or higher Excessive bleeding or drainage on dressing Inability to urinate Call the office at [phone] for a post operative appointment in 7 - 10 days. Referrals: [facility] [place] [Provider Group] - 1 Week Brendon Spicer MD [Staff Physician] - 1 Week July Strauss MD [Staff Physician] - 1 Week Kandice Rich DO [Staff Physician] - 1 Week Disposition: HOME - Home Medications Comprehensive Discharge Medication List: Ambulatory Orders Ferrous Sulfate [Feosol] 325 mg PO DAILY 01/15/19 levoFLOXacin [Levaquin -] 500 mg PO DAILY #7 tablet 07/04/19 metroNIDAZOLE [Flagyl -] 500 mg PO TID #21 tablet 07/04/19 This patient is new to me today: No Emergency Visit: No Critical Care patient: No - Discharge Referral Referred to [facility] No Physician Referral: Justin Kaye DO (GI) ATTENDING PHYSICIAN STATEMENT I saw and evaluated the patient. I reviewed the resident's note and discussed the case with the resident. I agree with the resident's findings and plan as documented. SUBJECTIVE: OBJECTIVE: ASSESSMENT AND PLAN:
== END 2019-07-04 16:09 | disposition home or self-care (01) | DRG 710 ==
LOC: JER 18:39 → JERBED 21:35 → J7W 06-24 16:37 → J4S 07-01 17:19
PROVIDERS: ADMIT Internal Medicine; ATTEND Internal Medicine
PROC: 0FC98ZZ Extirpation of Matter from Common Bile Duct, Via Natural or Artificial Opening Endoscopic (ICD-10-PCS; 2019-06-26)
PROC: 0FT44ZZ Resection of Gallbladder, Percutaneous Endoscopic Approach (ICD-10-PCS; principal; 2019-06-29 09:30)
DX: A41.89 Other specified sepsis (principal); L73.2 Hidradenitis suppurativa; K85.90 Acute pancreatitis without necrosis or infection, unspecified; D72.829 Elevated white blood cell count, unspecified; D62 Acute posthemorrhagic anemia; K80.30 Calculus of bile duct with cholangitis, unspecified, without obstruction; K80.00 Calculus of gallbladder with acute cholecystitis without obstruction; E66.01 Morbid (severe) obesity due to excess calories; Z68.42 Body mass index [BMI] 45.0-49.9, adult; J98.11 Atelectasis; R50.9 Fever, unspecified; R00.0 Tachycardia, unspecified; R18.8 Other ascites; J90 Pleural effusion, not elsewhere classified
CPT/HCPCS: 36415; 36430; 36511; 36600; 71045-TC-FY; 71250-TC; 74174-TC; 74176-TC; 74177-TC; 74178-TC; 74330-TC; 76700-TC; 76705-TC; 80048; 80053; 80061; 80074; 80076; 81003; 82150; 82248; 82728; 82803; 83010; 83036; 83540; 83550; 83605; 83615; 83690; 83721; 83735; 84100; 84484; 84702; 84703; 85025; 85027; 85610; 85730; 86140; 86850; 86900; 86901; 86922; 87040; 87086; 88304-TC; 93005; 93010; 94010; 94760; 99285-25; J0131; P9038; P9058; Q9967

== ENCOUNTER 2020-01-19 09:56 | Emergency (ER) | payer OTHER ==
[2020-01-19 10:16] VITALS: BP 154/93; PULSE 79; TEMP 98.2; BMI 35.9
[2020-01-19] MEDS ORDERED: IBUPROFEN 400 MG TABLET (FP) PO ONE ×2 (10:35→10:46)
--- NOTE | 2020-01-19 10:46 | PDOC ---
History of Present Illness - General Chief Complaint: Toothache Stated Complaint: TOOTHACHE Time Seen by Provider: 01/19/20 10:30 History Source: Patient Exam Limitations: Clinical Condition - History of Present Illness Initial Comments: 01/19/20 10:47 Patient with no significant past medical history present with complaint of 3-day history of pain to right lower tooth. Patient reports she was told she needs fillings in the tooth but has not followed up with dentist. Patient report taking Tylenol for pain with minimal improvement. Denies any other symptoms. Denies facial swelling, difficulty breathing or swallowing, fevers. Is this a multiple visit Asthma Patient?: No Timing/Duration: 1 week Past History - Medical History Allergies/Adverse Reactions: Allergies Allergy/AdvReac Type Severity Reaction Status Date / Time No Known Allergies Allergy Verified 01/19/20 10:15 Home Medications: Ambulatory Orders Ibuprofen 800 mg PO Q8H PRN #16 tablet 01/19/20 Multivitamin [Multiple Vitamins] 1 each PO DAILY 01/19/20 Anemia: Yes Asthma: No Cancer: No Cardiac Disorders: No CVA: No COPD: No CHF: No Dementia: No Diabetes: No GI Disorders: Yes (pancreatitis, choledocolithiasis) Disorders: No HTN: No Hypercholesterolemia: No Liver Disease: No Seizures: No Thyroid Disease: No - Surgical History Abdominal Surgery: No Appendectomy: No Cardiac Surgery: No Cholecystectomy: Yes Lung Surgery: No Neurologic Surgery: No Orthopedic Surgery: No - Reproductive History Is Patient Now?: No - Immunization History Immunization Up to Date: Yes - Psycho-Social/Smoking History Smoking History: Never smoked Have you smoked in the past 12 months: Yes Number of Cigarettes Smoked Daily: 20 If you are a former smoker, when did you quit?: 06/22/2019 'Breaking Loose' booklet given: 06/24/19 - Substance Abuse Hx (Audit-C & DAST Scrn) How often the patient has a drink containing alcohol: Monthly or less Score: In Men: 4 or > Positive; In Women: 3 or > Positive: 1 Screen Result (Pos requires Nsg. Audit-10AR): Negative In the last yr the pt used illegal drug/Rx for NonMed reason: No Score: Yes response is considered Positive: 0 Screen Result (Positive result requires Nsg. DAST-10): Negative Review of Systems - Review of Systems Able to Perform ROS?: Yes Is the patient limited Scottish proficient: No Constitutional: No: Chills, Fever, Malaise HEENTM: Yes: Symptoms Reported, See HPI, Dental Problems. No: Eye Pain, Blurred Vision, Tearing, Recent change in vision, Double Vision, Cataracts, Ear Pain, Ocular Prothesis, Ear Discharge, Nose Pain, Nose Congestion, Tinnitus, Nose Bleeding, Hearing Loss, Throat Pain, Throat Swelling, Mouth Pain, Difficulty Swallowing, Mouth Swelling, Other Respiratory: No: Symptoms reported, See HPI, Cough, Orthopnea, Shortness of Breath, SOB with Exertion, SOB at Rest, Stridor, Wheezing, Productive cough, Hemoptysis, Other Cardiac (ROS): No: Symptoms Reported, See HPI, Chest Pain, Edema, Irregular Heart Rate, Lightheadedness, Palpitations, Syncope, Chest Tightness, Other ABD/GI: No: Symptoms Reported, Nausea, Vomiting Integumentary: No: Symptoms Reported Neurological: No: Symptoms reported All Other Systems: Reviewed and Negative *Physical Exam - Vital Signs Last Vital Signs Temp Pulse Resp BP Pulse Ox 98.2 F 79 18 154/93 100 01/19/20 10:13 01/19/20 10:13 01/19/20 10:13 01/19/20 10:13 01/19/20 10:13 - Physical Exam 01/19/20 10:48 GENERAL: Well developed, well nourished. Awake and alert. No acute distress. HEENT: multiple dental decay seen right lower premolars with no periodontal swelling or erythema. No visible dental abscess. Normocephalic, atraumatic. PERRLA, EOMI. No conjunctival pallor. Sclera are non-icteric. Moist mucous membranes. Oropharynx is clear. NECK: Supple. Full ROM. CARDIOVASCULAR: Regular rate and rhythm. No murmurs, rubs, or gallops. PULMONARY: No evidence of respiratory distress. Lungs clear to auscultation bilaterally. No wheezing, rales or rhonchi. MUSCULOSKELETAL Normal range of motion at all joints. SKIN: Warm and dry. Normal capillary refill. NEUROLOGICAL: Alert, awake, appropriate. Gait is normal without ataxia. PSYCHIATRIC: Cooperative. Good eye contact. Appropriate mood General Appearance: Yes: Nourished, Appropriately Dressed. No: Apparent Distress Medical Decision Making - Medical Decision Making 01/19/20 10:47 Patient with no significant past medical history present with complaint of 3-day history of pain to right lower tooth. Patient reports she was told she needs fillings in the tooth but has not followed up with dentist. Patient report taking Tylenol for pain with minimal improvement. Denies any other symptoms. Denies facial swelling, difficulty breathing or swallowing, fevers. Exam significant for multiple dental decay seen right lower premolars with no periodontal swelling or erythema. No visible dental abscess. Exam patient symptoms likely dental pain from decay. Motrin 800 mg p.o. ordered for pain. Patient stable for discharge on Motrin PRN for pain with dental follow-up Discharge - Discharge Information Problems reviewed: Yes Clinical Impression/Diagnosis: Tooth ache Condition: Stable Disposition: HOME - Admission No - Additional Discharge Information Prescriptions: Ibuprofen 800 mg PO Q8H PRN #16 tablet PRN Reason: pain - Follow up/Referral Referrals: Ayleen Cosme [Primary Care Provider] - [facility]] - Patient Discharge Instructions Patient Printed Discharge Instructions: DI for Dental Pain Additional Instructions: Take prescribed medication as prescribed needed for pain. Follow-up with a dentist as soon as possible or you can follow-up with referred dental urgent care - Post Discharge Activity
== END 2020-01-19 10:51 | disposition home or self-care (01) ==
LOC: JER 09:56
DX: K08.89 Other specified disorders of teeth and supporting structures (principal)
CPT/HCPCS: 99283-25

== ENCOUNTER 2022-04-08 22:31 | Emergency (ER) | payer OTHER ==
[2022-04-08 22:40] VITALS: BMI 44.4
[2022-04-09 01:13] LABS: BASO % 0.8 % (0-2.0); EOS % 1.3 % (0-4.5); HEMATOCRIT 36.9 % (32.4-45.2); HEMOGLOBIN 12.2 GM/dL (10.7-15.3); LYMPH % 23.1 % (8-40); MCH 26.7 pg (25.7-33.7); MEAN PLT VOLUME 7.4 fl (7.5-11.1); MONO % 3.9 % (3.8-10.2); NEUT % 70.9 % (42.8-82.8); PLATELET COUNT 289 10^3/uL (134-434); RBC 4.55 M/mm3 (3.60-5.2); RDW 14.8 % (11.6-15.6); WHITE BLOOD COUNT 11.7 K/mm3 (4.0-10.0)
[2022-04-09 01:27] LABS: INR 1.05 (0.83-1.09); PROTHROMBIN TIME (PATIENT) 12.1 SEC (9.7-13.0)
[2022-04-09 01:30] LABS: ACTIVATED PTT 33.8 SECONDS (25.2-36.5)
[2022-04-09 01:42] LABS: EPI CELLS >36 /uL (0-25.1); HYALINE CASTS 15 /uL (0-3.1); PH,URINE 5.5 (5.0-8.0); URINE APPEARANCE CLOUDY; URINE BACTERIA 196 /uL (0-1359); URINE BILIRUBIN NEGATIVE (NEGATIVE); URINE COLOR ORANGE; URINE GLUCOSE (UA) NEGATIVE (NEGATIVE); URINE KETONE TRACE (NEGATIVE); URINE LEUK ESTERASE 2+ (NEGATIVE); URINE NITRITE NEGATIVE (NEGATIVE); URINE PROTEIN 2+ (NEGATIVE); URINE RBC 437 /uL (0-23.9); URINE WBC 164 /uL (0-25.8)
[2022-04-09 01:47] LABS: ALBUMIN 3.1 g/dl (3.4-5.0); BLOOD UREA NITROGEN 10.6 mg/dL (7-18)
[2022-04-09 01:50] LABS: CREATININE 0.6 mg/dL (0.55-1.3)
[2022-04-09 01:51] LABS: BILIRUBIN,TOTAL 0.3 mg/dL (0.2-1); TOT PROT 6.9 g/dl (6.4-8.2)
[2022-04-09 03:07] VITALS: BP 125/75; PULSE 62; RESP 18; TEMP 98.3
== END 2022-04-09 04:05 | disposition home or self-care (01) ==
LOC: JER 22:31
DX: O20.0 Threatened abortion (principal); Z3A.01 Less than 8 weeks gestation of pregnancy
CPT/HCPCS: 36415; 76817-TC; 80053; 81003; 84702; 85025; 85610; 85730; 86850; 86870; 86900; 86901; 86902; 87086; 99284-25